=== PATIENT | female | born 1955 | race Caucasian/White ===

== ENCOUNTER → 2016-02-14 | Outpatient (CLI) | payer OTHER ==
[~2016-02-14] MED LIST: ACET-1311 PO; ALBU0.08 INH; ALBU1AER9 INH; ASPI-461 PO; ASPI81TA28 PO; ATOR10TA82 PO; ATR10 PO; BENZ100C84 PO; CETI10TA84 PO; CHOL2000 PO; CHOL20005 PO; CRDCD/180 PO; CYAN100020 PO; CYAN10004 PO; DILT180C PO; DLTCD/240 PO; ENAL1TAB29 PO; ENAL2.5T PO; FERR1TAB62 PO; FRS/40 PO; HMLI SC; HOME1TAB18 PO; HYDR-389 PO; HYDR0.75 PO; IBUP-1050 PO; INSDGI SC; INSU100I SC; INSU100I23 SC; LEVA45AE INH; LIDO16CR TOP; LIRA18IN SQ; LPT10 PO; METF-384 PO; MOME200A INH; MONT1TAB3 PO; NAPR1TAB48 PO; NYSTCRE32 TOP; ONDA4TAB10 SL; ONDA4TAB46 PO; OSEL75CA12 PO; OXYC1TAB3 PO; POTA1080 PO; PRED20TA PO; RANI300T PO; RHNAQIN NAE; SNG10 PO; TRAM-10 PO; ZNTT/150 PO
--- NOTE | 2016-02-14 11:05 | DIAGNOSTIC IMAGING REPORT ---
RIGHT AXILLARY ULTRASOUND CLINICAL HISTORY: Axillary lymphadenopathy COMPARISON STUDY: CT scan dated 01/09/2016 FINDINGS: There are scattered small axillary lymph nodes measuring up to 1 cm in short axis. These demonstrate normal fatty olimpia. There is no evidence of pathologic cortical thickening. IMPRESSION: No evidence of pathologic right axillary lymphadenopathy by size or morphologic criteria Electronically signed by: Abdulkadir Guerrero M.D. 02/14/2016 11:03 AM
== END | disposition home or self-care (01) ==
LOC: C.ULTR 09:29
PROVIDERS: ATTEND Internal Medicine
DX: R59.0 Localized enlarged lymph nodes (principal)

== ENCOUNTER → 2016-02-28 | Outpatient (CLI) | payer OTHER ==
[~2016-02-28] MED LIST changes: -ATOR10TA82 PO; +ATOR10TA88 PO; -FERR1TAB62 PO; +FERR325T PO; -INSU100I23 SC; -LPT10 PO; -NAPR1TAB48 PO; +NAPR250T2 PO
--- NOTE | 2016-02-28 14:39 | DIAGNOSTIC IMAGING REPORT ---
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 FINDINGS: Digit waveforms for each digit within the feet were obtained and are located within the PACS system. The right ankle-brachial index measured 0.84 and the left measured 0.72 when utilizing digital pressures. IMPRESSION: 1. Right ankle brachial index of 0.84 and left ankle brachial index of 0.72. 2. Digit waveforms for each toe were obtained and are located within the PACS system. Electronically signed by: Ángel Garcia M.D. 02/28/2016 2:37 PM Dictated Date/Time: 02/28/2016 2:34 PM
== END | disposition home or self-care (01) ==
LOC: C.ULTR 13:14
PROVIDERS: ATTEND Podiatrist Foot & Ankle Surgery
DX: E11.51 Type 2 diabetes mellitus with diabetic peripheral angiopathy without gangrene (principal)

== ENCOUNTER 2016-02-29 13:25 | Inpatient (IN) | payer OTHER ==
[~2016-02-29] VITALS: Ht 160 cm; Wt 138.5 kg
[~2016-02-29 13:25] MED LIST changes: -ACET-1311 PO; -ASPI-461 PO; -ASPI81TA28 PO; -ATOR10TA88 PO; -ATR10 PO; -BENZ100C84 PO; -CETI10TA84 PO; -CHOL2000 PO; -CHOL20005 PO; -CRDCD/180 PO; -CYAN100020 PO; -CYAN10004 PO; -DILT180C PO; -DLTCD/240 PO; -ENAL1TAB29 PO; -ENAL2.5T PO; -FERR325T PO; -FRS/40 PO; -HMLI SC; -HOME1TAB18 PO; -HYDR-389 PO; -HYDR0.75 PO; -INSU100I SC; -LEVA45AE INH; -LIDO16CR TOP; -LIRA18IN SQ; -METF-384 PO; -MOME200A INH; -MONT1TAB3 PO; -NYSTCRE32 TOP; -ONDA4TAB46 PO; -OSEL75CA12 PO; -OXYC1TAB3 PO; -POTA1080 PO; -PRED20TA PO; -RANI300T PO; -RHNAQIN NAE; -SNG10 PO; -TRAM-10 PO; -ZNTT/150 PO
[2016-02-29] MEDS ORDERED: OPTIRAY 320 IV PRN (14:00)
[2016-02-29 15:34] LABS: BASO % 0.4 %; BASO ABS # 0.04 K/uL (0-0.2); COMPLETE YES; HEMATOCRIT 35.3 % (37-47); IG% 0.3 %; LYMPH % 28.4 %; MEAN CELL VOLUME 73.8 fL (80-100); MEAN CORPUSCULAR HEMOGLOBIN 23.4 pg (25-34); MEAN CORPUSCULAR HGB CONC 31.7 g/dl (32-36); MEAN PLATELET VOLUME 9.7 fL (7.4-10.4); MONO % 7.9 %; PLATELET COUNT 257 K/uL (130-400); RED BLOOD COUNT 4.78 M/uL (4.2-5.4); WHITE BLOOD COUNT 10.58 K/uL (4.8-10.8)
[2016-02-29 16:00] LABS: CALCIUM 9.1 mg/dl (8.5-10.1); CREATININE 0.64 mg/dl (0.60-1.20); MAGNESIUM 1.9 mg/dl (1.8-2.4); POTASSIUM 3.7 mmol/L (3.5-5.1)
[2016-02-29 16:11] LABS: ALB/GLOB RATIO 0.8 (0.9-2); THYROID STIMULATING HORMONE 0.941 uIu/ml (0.300-4.500)
--- NOTE | 2016-02-29 16:45 | DIAGNOSTIC IMAGING REPORT ---
CT ANGIOGRAPHY OF THE CHEST, PULMONARY EMBOLUS PROTOCOL CLINICAL HISTORY: Tachycardia, shortness of breath and palpitations. COMPARISON STUDY: Chest CT January 09, 2016 and chest radiograph February 06, 2016. TECHNIQUE: Following IV administration of 96 mL of Optiray-320, helical axial images of the chest were obtained utilizing the pulmonary embolus protocol. Maximal intensity projections and sagittal and coronal reformats were viewed on an independent 3D workstation. IV contrast was administered without complication. CT DOSE: 871.55 mGy.cm FINDINGS: No pulmonary emboli are identified. The heart is mildly enlarged. There is no pericardial effusion. There is no evidence for thoracic aortic dissection. Moderate coronary artery calcification is present. The previously described right axillary lymph node has slightly decreased in size. This is likely benign. Marked elevation of the right hemidiaphragm is unchanged. There is no consolidation to suggest pneumonia. Right lower lobe opacity suggest atelectasis. There is no pneumothorax or pleural effusion. The central airways are patent. A right total arthroplasty is incidentally noted. The gallbladder surgically absent. Mild splenomegaly is unchanged. IMPRESSION: 1. No pulmonary emboli identified. 2. No acute intrathoracic findings. 3. Stable marked elevation of the right hemidiaphragm. Electronically signed by: Ángel Garcia M.D. 02/29/2016 4:43 PM Dictated Date/Time: 02/29/2016 4:35 PM
[2016-02-29 17:38] VITALS: O2SAT 94; Ht 160 cm; Wt 138.5 kg
[2016-02-29] MEDS ORDERED: POTASSIUM CITRATE 10 MEQ TAB PO ONE (18:11)
[2016-02-29] MEDS ORDERED: LIDOCAINE 4% CREAM 15 GM TUBE EXT PRN (18:15)
[2016-02-29] MEDS ORDERED: LORAZEPAM 2 MG/ML 1 ML VIAL IV PRN ×2 (18:15)
[2016-02-29] MEDS ORDERED: GLUCOSE 10 TABS/TUBE PO PRN (18:15)
[2016-02-29] MEDS ORDERED: PROMETHAZINE HCL INJ 12.5 MG in SODIUM CHLORIDE 0.9% 50ML 50 ML IV PRN (18:15)
[2016-02-29] MEDS ORDERED: NITROGLYCERIN 0.4 MG SL PER TAB CHARGE SL PRN (18:15)
[2016-02-29] MEDS ORDERED: MAGNESIUM HYDROXIDE SUSP 30 ML UDC PO PRN (18:15)
[2016-02-29] MEDS ORDERED: ZOLPIDEM TARTRATE 5 MG TAB PO PRN ×2 (18:15)
[2016-02-29] MEDS ORDERED: MoRPHine SULFATE 4 MG/ML 1 ML CARP\\VIAL IV PRN (18:15)
[2016-02-29] MEDS ORDERED: GLUCOSE 40% GEL 15 GM TUBE PO PRN (18:15)
[2016-02-29] MEDS ORDERED: BISACODYL 10 MG SUPP PR PRN (18:15)
[2016-02-29] MEDS ORDERED: ACETAMINOPHEN 325 MG TAB PO PRN ×2 (18:15)
[2016-02-29] MEDS ORDERED: MoRPHine SULFATE 2 MG/ML CARP IV PRN (18:15)
[2016-02-29] MEDS ORDERED: DiphenhydrAMINE HCL 50 MG/ML VIAL IV PRN (18:15)
[2016-02-29] MEDS ORDERED: DEXTROSE 50% 50 ML SYR IV PRN (18:15)
[2016-02-29] MEDS ORDERED: ALUMINUM/MAGNESIUM/SIMETH (MAALOX MAX) 30 ML UDC PO PRN (18:15)
[2016-02-29] MEDS ORDERED: NYSTATIN/TRIAMCINOLONE CR 15 GM TUBE EXT PRN (18:15)
[2016-02-29] MEDS ORDERED: TRAMADOL HCL 50 MG TAB PO PRN (18:15)
[2016-02-29] MEDS ORDERED: ONDANSETRON INJ 2 MG/ML 2 ML VIAL IV PRN (18:15)
[2016-02-29] MEDS ORDERED: GLUCAGON FOR INJ 1 MG VIAL SQ PRN (18:15)
[2016-02-29] MEDS ORDERED: LORAZEPAM INJ 0.5 MG in SYRINGE 0.75 ML IV PRN (18:45)
[2016-02-29 19:32] LABS: CKMB/CK RATIO 1.2 (0-3.0)
[2016-02-29] MEDS ORDERED: MAGNESIUM SULFATE 1GM / D5W 1 GM BAG ONE (19:45)
[2016-02-29 19:54] LABS: URINE APPEARANCE CLEAR (CLEAR); URINE BILIRUBIN NEG (NEG); URINE COLOR YELLOW; URINE NITRITE NEG (NEG); URINE PH 7.5 (4.5-7.5); UROBILINOGEN NEG (NEG); ZZUR CULT IF INDIC CLEAN CATCH NO
[2016-02-29 19:55] LABS: MANUAL MICROSCOPIC REQUIRED? NO; REVIEW REQ? NO
[2016-02-29] MEDS ORDERED: MAGNESIUM SULFATE 1GM / D5W 1 GM in PREMIXED IN D5W 100 ML IV ONE (20:30)
--- NOTE | 2016-02-29 20:33 | History and Physical ---
History & Physical Date & Time of Service: Feb 29, 2016 at 20:07 Chief Complaint: Heart Palpitations Primary Care Physician: RV. Patterson MD History of Present Illness Source: patient The patient is a 52-year-old female who presents to the emergency department with a recurrence of palpitations. She has had palpitations in the past, and they've been seen while emergency department before, however, they have not been able to be recorded. Today, she did have a rapid heart episode recorded, this was shown to billing supervisor Dr. Shaw, who felt that it was an SVT, and that the patient should be admitted to be seen by Dr. Broussard. The patient reports that these symptoms can happen at any time, and may occur with or without activity, but in particular can be associated with time or when she is sleeping at nighttime. She does also notice the palpitations are more likely to occur after using her nebulizer treatment at home. She has not had any symptoms of presyncope or syncope when these occur. Past Medical/Surgical History Medical Problems: (1) Asthma Status: Chronic (2) Cholecystectomy Status: Resolved (3) Chronic obstructive lung disease Status: Chronic (4) Diabetes mellitus Status: Chronic (5) Hysterectomy Status: Resolved (6) Sleep apnea Status: Chronic Family History Diabetes mellitus Hypertension Kidney stones Social History Smoking Status: Former Smoker Smokeless Tobacco Use: No Alcohol Use: none Drug Use: none, marijuana Marital Status: Housing status: lives with family Occupational Status: disabled Immunizations History of Influenza Vaccine: Yes Influenza Vaccine Date: Nov 26, 2014 History of Tetanus Vaccine?: No History of Pneumococcal: Yes Pneumococcal Date: Mar 29, 2013 History of Hepatitis B Vaccine: No Multi-Drug Resistant Organisms History of MDRO: No Allergies Coded Allergies: Tetanus Toxoid (Verified Allergy, Unknown, ARM SWELLING ITCHY, 02/06/16) Home Medications Scheduled Aspirin (Aspirin Ec), 81 MG PO DAILY Atorvastatin (Lipitor), 10 MG PO QPM Cetirizine (Zyrtec), 10 MG PO QAM Cholecalciferol (Vitamin D3), 2,000 UNITS PO QAM Cyanocobalamin (Vitamin B12), 1,000 MCG PO QPM Enalapril Maleate (Vasotec), 2.5 MG PO QPM Furosemide (Lasix), 40 MG PO BID Hydroxyzine Hcl (Atarax), 10 MG PO BID Insulin Glargine (Lantus), 90 UNITS SC QAM Insulin Lispro (Humalog), UNITS SC WM Lidocaine (Aspercreme W/Lidocaine), 1 APPLN TOP PRN UD Liraglutide (Victoza), 1.8 MCG SQ QPM Metformin Hcl (Glucophage), 1,000 MG PO BIDM Mometasone Furoate-Formoterol (Dulera 200/5 Mcg), 2 PUFFS INH BID Montelukast Sodium (Singulair), 10 MG PO HS Potassium Citrate (Alkalinizer (Potassium Citrate ER), 10 MEQ PO BID Ranitidine (Zantac), 150 MG PO Q12 Scheduled PRN Acetaminophen (Tylenol), 4 TABS PO TID PRN for Headache or Pain Albuterol (Proair Hfa), 1-2 PUFFS INH Q4-6HRS PRN for SOB/Wheezing Albuterol Soln (Proventil 0.083% 2.5MG/3ML), 2.5 MG INH Q6H PRN for Wheezing Nystatin-Triamcinolone (Nystatin/Triamcinolone), 1 APPLN TOP BID PRN for Tramadol (Ultram), 50 MG PO QPM PRN for Pain Review of Systems The patient denies shortness of breath, cough, lower extremity swelling, vision change, hearing change, sore throat, fevers, chills, sweats, weight change, fatigue, nausea, vomiting, abdominal pain, pelvic pain, blood in urine or stool , dysuria, urinary frequency or urgency, lightheadedness, dizziness, headache, memory loss, rash, abnormal bruising or bleeding, imbalance, focal or generalized weakness, numbness or tingling in arms or legs, arthralgias or myalgias, back or neck pain, night sweats, or allergy symptoms. The review of systems is otherwise negative other than for that already noted above, and at least 10 systems have been reviewed. Physical Exam Vital Signs Date Time Temp Pulse Resp B/P Pulse Ox O2 Delivery O2 Flow Rate FiO2 02/29/16 19:40 99 21 114/66 94 Room Air 02/29/16 19:37 99 25 94 02/29/16 19:07 102 23 93 02/29/16 18:58 112/92 02/29/16 18:37 106 26 91 02/29/16 18:32 104 29 93 02/29/16 18:29 110/63 02/29/16 18:02 111 21 92 02/29/16 17:59 120/72 02/29/16 17:38 94 Room Air 02/29/16 17:32 111 23 95 02/29/16 17:29 103/80 02/29/16 17:02 134 20 94 02/29/16 16:57 143 121/65 02/29/16 16:33 115 19 02/29/16 16:03 165 19 94 02/29/16 15:58 122/74 02/29/16 15:50 98 22 94 02/29/16 15:43 123/81 02/29/16 15:28 110/64 02/29/16 15:20 88 21 95 02/29/16 15:15 107 18 94 02/29/16 15:14 91/67 02/29/16 15:10 106 27 96 02/29/16 15:05 90 26 02/29/16 15:00 88 15 02/29/16 14:59 125/68 02/29/16 14:55 90 23 95 02/29/16 14:51 125/93 02/29/16 14:50 146 21 94 02/29/16 14:45 103 17 02/29/16 14:42 89 02/29/16 14:40 85 25 92 02/29/16 13:37 98 Room Air 02/29/16 13:34 37.1 86 18 135/62 98 Room Air The patient is awake, alert and oriented 3, normocephalic and atraumatic, obese , lying in bed and in no acute distress. HEENT--PERRL, EOMI, mucous membranes moist, and oropharynx normal. Neck--supple, no JVD or bruits, thyroid normal, trachea midline, no adenopathy. Heart--normal S1 and S2, no extra beats, no murmurs, rubs or gallops. Lungs--clear bilaterally with good air movement, no respiratory distress, no accessory muscle use. Abdomen--normal bowel sounds and soft, nontender and nondistended, no hernias or masses, no organomegaly. Extremities--no cyanosis, clubbing or edema. There are good distal pulses b/l. Dermatologic--normal skin turgor, normal color, warm and dry, no abnormal lymph nodes, no rash. Neurologic--cranial nerves II through XII grossly intact, motor and sensory examination normal. Rheumatologic--normal range of motion, nontender, muscles and joints. Psychiatric--normal affect. Diagnostics Laboratory Results Results Past 24 Hours Test 02/29/16 14:45 02/29/16 15:23 02/29/16 15:25 Range/Units Urine Color YELLOW Urine Appearance CLEAR CLEAR Urine pH 7.5 4.5-7.5 Urine Specific [place] 1.000 1.000-1.030 Urine Protein NEG NEG Urine Glucose (UA) NEG NEG Urine Ketones NEG NEG Urine Occult Blood NEG NEG Urine Nitrite NEG NEG Urine Bilirubin NEG NEG Urine Urobilinogen NEG NEG Urine Leukocyte Esterase NEG NEG White Blood Count 10.58 4.8-10.8 K/uL Red Blood Count 4.78 4.2-5.4 M/uL Hemoglobin 11.2 12.0-16.0 g/dL Hematocrit 35.3 37-47 % Mean Corpuscular Volume 73.8 80-100 fL Mean Corpuscular Hemoglobin 23.4 25-34 pg Mean Corpuscular Hemoglobin Concent 31.7 32-36 g/dl Platelet Count 257 130-400 K/uL Mean Platelet Volume 9.7 7.4-10.4 fL Neutrophils (%) (Auto) 62.0 % Lymphocytes (%) (Auto) 28.4 % Monocytes (%) (Auto) 7.9 % Eosinophils (%) (Auto) 1.0 % Basophils (%) (Auto) 0.4 % Neutrophils # (Auto) 6.56 1.4-6.5 K/uL Lymphocytes # (Auto) 3.00 1.2-3.4 K/uL Monocytes # (Auto) 0.84 0.11-0.59 K/uL Eosinophils # (Auto) 0.11 0-0.5 K/uL Basophils # (Auto) 0.04 0-0.2 K/uL RDW Standard Deviation 46.5 36.4-46.3 fL RDW Coefficient of Variation 17.2 11.5-14.5 % Immature Granulocyte % (Auto) 0.3 % Immature Granulocyte # (Auto) 0.03 0.00-0.02 K/uL Sodium Level 138 136-145 mmol/L Potassium Level 3.7 3.5-5.1 mmol/L Chloride Level 101 98-107 mmol/L Carbon Dioxide Level 27 21-32 mmol/L Anion Gap 10.0 3-11 mmol/L Blood Urea Nitrogen 8 7-18 mg/dl Creatinine 0.64 0.60-1.20 mg/dl Est Creatinine Clear Calc Drug Dose 132.2 ml/min Estimated GFR () 114.0 Estimated GFR (Non- 98.4 BUN/Creatinine Ratio 12.0 10-20 Random Glucose 78 70-99 mg/dl Calcium Level 9.1 8.5-10.1 mg/dl Magnesium Level 1.9 1.8-2.4 mg/dl Total Bilirubin 0.2 0.2-1 mg/dl Aspartate Amino Transf (AST/SGOT) 13 15-37 U/L Alanine Aminotransferase (ALT/SGPT) 19 12-78 U/L Alkaline Phosphatase 70 45-117 U/L Total Creatine Kinase 75 26-192 U/L Creatine Kinase MB 0.9 0.5-3.6 ng/ml Creatine Kinase MB Ratio 1.2 0-3.0 Troponin I < 0.015 0-0.045 ng/ml Total Protein 7.3 6.4-8.2 gm/dl Albumin 3.2 3.4-5.0 gm/dl Globulin 4.1 2.5-4.0 gm/dl Albumin/Globulin Ratio 0.8 0.9-2 Thyroid Stimulating Hormone (TSH) 0.941 0.300-4.500 uIu/ml Bedside Troponin I 0.000 0-0.045 ng/ml Diagnostic Radiology Patient Name: JOSE ANGEL POSADA Unit Number: [id number] Dictated: 02/29/[id number] Transcribed: 02/29/161634 GIN Printed Date/Time: [~ rep prt dt]/[~ rep prt tm] [~ rep ct labl] - [~ rep ct ivnm] [facility] [place] [place] [address] Dictated: 02/29/161634 Transcribed: 02/29/161634 GIN Printed Date/Time: [~ rep prt dt]/[~ rep prt tm] [~ rep ct labl] - [~ rep ct ivnm] CT ANGIOGRAPHY OF THE CHEST, PULMONARY EMBOLUS PROTOCOL CLINICAL HISTORY: Tachycardia, shortness of breath and palpitations. COMPARISON STUDY: Chest CT January 09, 2016 and chest radiograph February 06, 2016. TECHNIQUE: Following IV administration of 96 mL of Optiray-320, helical axial images of the chest were obtained utilizing the pulmonary embolus protocol. Maximal intensity projections and sagittal and coronal reformats were viewed on an independent 3D workstation. IV contrast was administered without complication. CT DOSE: 871.55 mGy.cm FINDINGS: No pulmonary emboli are identified. The heart is mildly enlarged. There is no pericardial effusion. There is no evidence for thoracic aortic dissection. Moderate coronary artery calcification is present. The previously described right axillary lymph node has slightly decreased in size. This is likely benign. Marked elevation of the right hemidiaphragm is unchanged. There is no consolidation to suggest pneumonia. Right lower lobe opacity suggest atelectasis. There is no pneumothorax or pleural effusion. The central airways are patent. A right total arthroplasty is incidentally noted. The gallbladder surgically absent. Mild splenomegaly is unchanged. IMPRESSION: 1. No pulmonary emboli identified. 2. No acute intrathoracic findings. 3. Stable marked elevation of the right hemidiaphragm. Electronically signed by: Ángel Garcia M.D. 02/29/2016 4:43 PM Dictated Date/Time: 02/29/2016 4:35 PM The status of this report is Signed. Draft = Not yet reviewed or approved by Radiologist. Signed = Reviewed and approved by Radiologist. <AttendingPhy></AttendingPhy> <FamilyPhy>RV. Patterson MD</ FamilyPhy> <PrimaryPhy>RV. Patterson MD</PrimaryPhy> <UnitNumber> [id number]</UnitNumber> <VisitNumber>[id number]</VisitNumber> <PatientName> JOSE ANGEL POSADA</PatientName> <DateOfBirth>1955</DateOfBirth> <Location>[facility]</ Location> <ServiceDate>02/29/16</ServiceDate> <MNE>ESINDI</MNE> <OrderingPhy> Penny Gonzalez PA-C</OrderingPhy> <OrderingPhyMNE>f rep ord dr clayton</OrderingPhyMNE > <DictatingPhyMNE>f rep dict dr clayton</DictatingPhyMNE> <CCListMNE>f rep cuca clayton</ CCListMNE> <AdmittingPhyMNE>f pt admit dr clayton</AdmittingPhyMNE> <AttendingPhyMNE >f pt attend dr clayton</AttendingPhyMNE> <ConsultingPhyMNE>f pt consult dr clayton</ConsultingPhyMNE> <FamilyPhyMNE>f pt fam dr clayton</FamilyPhyMNE> <OtherPhyMNE>f pt other dr clayton</OtherPhyMNE> < PrimaryPhyMNE>f pt prim care dr clayton</PrimaryPhyMNE> <ReferringPhyMNE>f pt referring dr clayton</ReferringPhyMNE> EKG EKG #1--normal sinus rhythm at 92 bpm, with right bundle branch block, with PACs , and no acute ST-T changes. EKG #2--sinus tachycardia at 157 bpm, right bundle branch block, with no acute ST-T changes. Impression Assessment and Plan Sinus tachycardia, self-limited, but by history recurrent--the patient will be admitted to the telemetry unit, will for serial cardiac enzymes, cardiac rhythm monitoring, and a 2-D echocardiogram with Dopplers. Her potassium is 3.7, and magnesium is 1.9. We'll increase her oral supplementation of potassium, and give 1 g IV magnesium IV, to optimize potassium and magnesium. We'll consult Dr. Broussard to assess the patient. Continue enalapril 2.5 mg by mouth daily, furosemide 40 mg by mouth twice a day and will increase potassium citrate from 10 mEq by mouth twice a day 220 mEq by mouth twice a day, with 40 mEq by mouth tonight. Diabetes mellitus--continue Lantus insulin 90 units subcutaneous every morning. Hold Victoza since its nonformulary, hold metformin 1000 mg by mouth twice a day, and place patient on Accu-Cheks before meals and at bedtime with NovoLog coverage. COPD--continue pro-air HFA 2 puffs every 4 hours when necessary. Will Hold albuterol sulfate nebulizer since she reports it . Is more likely to cause tachycardia, and instead place on Xopenex with Atrovent nebs to use every 2 hours when necessary. Continue Singulair 10 mg by mouth at bedtime. Change Dulera to Symbicort 160/4.52 puffs twice a day for formulary interchange. Hypercholesterolemia--continue atorvastatin 10 mg by mouth every afternoon. GERD--continue ranitidine 50 mg by mouth every 12 hours. B12 deficiency--continue vitamin B12 supplement 1000 g by mouth every afternoon. Allergy--continue cetirizine 10 mg by mouth every morning. Pain management increased tramadol 50 mg every afternoon when necessary 2 every 4 hours when necessary.. Level of Care Telemetry Advanced Directives Existing Advance Directive: No Existing Living Will: No Existing Power of Optical Advisor: No Resuscitation Status FULL RESUSCITATION VTE Prophylaxis VTE Risk Assessment Done? Y/N: Yes Risk Level: Moderate Given or contraindicated: SCD's
[2016-02-29 20:55] VITALS: BP 132/78; PULSE 96; TEMP 36.7; O2SAT 91
[2016-02-29] MEDS: BUDESONIDE/FORMOTEROL FUMARATE 160/4.5 60 PUFFS/INHALER INH SCH (20:58)
[2016-02-29] MEDS: DOCUSATE SODIUM 100 MG CAP PO SCH (20:58)
[2016-02-29] MEDS: FUROSEMIDE 40 MG TAB PO SCH (20:59)
[2016-02-29] MEDS: RANITIDINE HCL 150 MG TAB PO SCH (20:59)
[2016-02-29] MEDS ORDERED: MONTELUKAST SOD 10 MG TAB PO SCH (21:00)
[2016-02-29] MEDS ORDERED: ENALAPRIL MALEATE 5 MG TAB PO SCH (21:00)
[2016-02-29] MEDS: hydrOXYzine HCL 10 MG TAB PO SCH (21:00)
[2016-02-29] MEDS ORDERED: ATORVASTATIN 10 MG TAB PO SCH (21:00)
[2016-02-29] MEDS ORDERED: POTASSIUM CITRATE 10 MEQ TAB PO SCH (21:00)
[2016-02-29] MEDS: INSULIN ASPART 100 UNITS/ML 3 ML PEN SC SCH (21:07)
[2016-02-29] MEDS: POTASSIUM CITRATE 10 MEQ TAB PO SCH (21:08)
[2016-02-29 21:22] VITALS: O2SAT 91
[2016-02-29 21:29] VITALS: O2SAT 91
[2016-02-29 23:29] VITALS: BP 127/84; PULSE 94; TEMP 36.6; O2SAT 90
--- NOTE | 2016-02-29 23:42 | EMERGENCY ROOM VISIT NOTE ---
History First contact with patient: 13:43 Chief Complaint: PALPITATIONS Stated Complaint: SVT Nursing Triage Summary: Heart palpitations. Dr. Mcnally was dob[employer] lo[employer] weaver and has not been able to establish an appt with a new provider. "Sometimes the palpitations take my breath away." Has history of heart palpiations- HR in the 180s last year. History of Present Illness The patient is a 60 year old female who presents to the Emergency Room with complaints of palpitations. The patient reports that she has had palpitations over the past one week. She states that she has had a history of tachycardia and was admitted once a few years ago for this. She states she is unsure of the cause of the tachycardia. She saw Dr. Mcnally, but states that she has not seen any dob[employer] loom weaver at this time. She called them this week, but there was no available appointment this month. She states that the palpitations are worse at night and when she develops then she has tightness in her chest and shortness of breath. She states they are worse than they have been in the past. She does have a history of pulmonary embolism. She denies any, vomiting , abdominal pain, headaches or urinary symptoms. Review of Systems A complete 10-point Review of Systems was discussed with the patient, with pertinent positives and negatives listed in the History of Present Illness. All remaining Review of Systems questions can be considered negative unless otherwise specified. Past Medical/Surgical History Medical Problems: (1) Asthma (2) Calculus Of Kidney (3) Cholecystectomy (4) Chronic obstructive lung disease (5) Diabetes mellitus (6) Hysterectomy (7) Left arm numbness (8) Rotator cuff arthropathy (9) Shortness of breath (10) Sleep apnea (11) SVT (supraventricular tachycardia) Family History Diabetes mellitus Hypertension Kidney stones Social History Smoking Status: Former Smoker Smokeless Tobacco Use: No Alcohol Use: none Drug Use: none, marijuana Marital Status: Housing Status: lives with family Occupation Status: disabled Current/Historical Medications Scheduled Aspirin (Aspirin Ec), 81 MG PO DAILY Atorvastatin (Lipitor), 10 MG PO QPM Cetirizine (Zyrtec), 10 MG PO QAM Cholecalciferol (Vitamin D3), 2,000 UNITS PO QAM Cyanocobalamin (Vitamin B12), 1,000 MCG PO QPM Enalapril Maleate (Vasotec), 2.5 MG PO QPM Furosemide (Lasix), 40 MG PO BID Hydroxyzine Hcl (Atarax), 10 MG PO BID Insulin Glargine (Lantus), 90 UNITS SC QAM Insulin Lispro (Humalog), UNITS SC WM Lidocaine (Aspercreme W/Lidocaine), 1 APPLN TOP PRN UD Liraglutide (Victoza), 1.8 MCG SQ QPM Metformin Hcl (Glucophage), 1,000 MG PO BIDM Mometasone Furoate-Formoterol (Dulera 200/5 Mcg), 2 PUFFS INH BID Montelukast Sodium (Singulair), 10 MG PO HS Potassium Citrate (Alkalinizer (Potassium Citrate ER), 10 MEQ PO BID Ranitidine (Zantac), 150 MG PO Q12 Scheduled PRN Acetaminophen (Tylenol), 4 TABS PO TID PRN for Headache or Pain Albuterol (Proair Hfa), 1-2 PUFFS INH Q4-6HRS PRN for SOB/Wheezing Albuterol Soln (Proventil 0.083% 2.5MG/3ML), 2.5 MG INH Q6H PRN for Wheezing Nystatin-Triamcinolone (Nystatin/Triamcinolone), 1 APPLN TOP BID PRN for Tramadol (Ultram), 50 MG PO QPM PRN for Pain Allergies Coded Allergies: Tetanus Toxoid (Verified Allergy, Unknown, ARM SWELLING ITCHY, 02/06/16) Physical Exam Vital Signs Date Time Temp Pulse Resp B/P Pulse Ox O2 Delivery O2 Flow Rate FiO2 02/29/16 18:02 111 21 92 02/29/16 17:59 120/72 02/29/16 17:38 94 Room Air 02/29/16 17:32 111 23 95 02/29/16 17:29 103/80 02/29/16 17:02 134 20 94 02/29/16 16:57 143 121/65 02/29/16 16:33 115 19 02/29/16 16:03 165 19 94 02/29/16 15:58 122/74 02/29/16 15:50 98 22 94 02/29/16 15:43 123/81 02/29/16 15:28 110/64 02/29/16 15:20 88 21 95 02/29/16 15:15 107 18 94 02/29/16 15:14 91/67 02/29/16 15:10 106 27 96 02/29/16 15:05 90 26 02/29/16 15:00 88 15 02/29/16 14:59 125/68 02/29/16 14:55 90 23 95 02/29/16 14:51 125/93 02/29/16 14:50 146 21 94 02/29/16 14:45 103 17 02/29/16 14:42 89 02/29/16 14:40 85 25 92 02/29/16 13:37 98 Room Air 02/29/16 13:34 37.1 86 18 135/62 98 Room Air Pain Rating (0-10): 0 Physical Exam VITALS: Vitals are noted on the nurse's note and reviewed by myself. Vital signs stable. GENERAL: This is a 60-year-old obese female, in no acute distress, nondiaphoretic, well-developed well-nourished. SKIN: Capillary reflex less than 2 seconds. HEENT: Normocephalic. PERRLA. EOMI. Nares patent. Mucous membranes moist. Neck is supple without nuchal rigidity. HEART: Regular rate and rhythm without murmurs gallops or rubs. LUNGS: Clear to auscultation bilaterally without wheezes, rales or rhonchi. No retractions or accessory muscle use. ABDOMEN: Positive bowel sounds x 4. Soft, nontender. NEURO: Patient was alert and oriented to person place and time. Medical Decision & Procedures ER Provider Diagnostic Interpretation: CT ANGIOGRAPHY OF THE CHEST, PULMONARY EMBOLUS PROTOCOL IMPRESSION: 1. No pulmonary emboli identified. 2. No acute intrathoracic findings. 3. Stable marked elevation of the right hemidiaphragm. Laboratory Results 02/29/16 15:23 Red Blood Count 4.78, Mean Corpuscular Volume 73.8, Mean Corpuscular Hemoglobin 23.4, Mean Corpuscular Hemoglobin Concent 31.7, Mean Platelet Volume 9.7, Neutrophils (%) (Auto) 62.0, Lymphocytes (%) (Auto) 28.4, Monocytes (%) (Auto) 7.9, Eosinophils (%) (Auto) 1.0, Basophils (%) (Auto) 0.4, Neutrophils # (Auto) 6.56, Lymphocytes # (Auto) 3.00, Monocytes # (Auto) 0.84, Eosinophils # (Auto) 0.11, Basophils # (Auto) 0.04 02/29/16 15:23 Test 02/29/16 14:45 02/29/16 15:23 02/29/16 15:25 Urine Color YELLOW Urine Appearance CLEAR (CLEAR) Urine pH 7.5 (4.5-7.5) Urine Specific [place] 1.000 (1.000-1.030) Urine Protein NEG (NEG) Urine Glucose (UA) NEG (NEG) Urine Ketones NEG (NEG) Urine Occult Blood NEG (NEG) Urine Nitrite NEG (NEG) Urine Bilirubin NEG (NEG) Urine Urobilinogen NEG (NEG) Urine Leukocyte Esterase NEG (NEG) White Blood Count 10.58 K/uL (4.8-10.8) Red Blood Count 4.78 M/uL (4.2-5.4) Hemoglobin 11.2 g/dL (12.0-16.0) Hematocrit 35.3 % (37-47) Mean Corpuscular Volume 73.8 fL (80-100) Mean Corpuscular Hemoglobin 23.4 pg (25-34) Mean Corpuscular Hemoglobin Concent 31.7 g/dl (32-36) Platelet Count 257 K/uL (130-400) Mean Platelet Volume 9.7 fL (7.4-10.4) Neutrophils (%) (Auto) 62.0 % Lymphocytes (%) (Auto) 28.4 % Monocytes (%) (Auto) 7.9 % Eosinophils (%) (Auto) 1.0 % Basophils (%) (Auto) 0.4 % Neutrophils # (Auto) 6.56 K/uL (1.4-6.5) Lymphocytes # (Auto) 3.00 K/uL (1.2-3.4) Monocytes # (Auto) 0.84 K/uL (0.11-0.59) Eosinophils # (Auto) 0.11 K/uL (0-0.5) Basophils # (Auto) 0.04 K/uL (0-0.2) RDW Standard Deviation 46.5 fL (36.4-46.3) RDW Coefficient of Variation 17.2 % (11.5-14.5) Immature Granulocyte % (Auto) 0.3 % Immature Granulocyte # (Auto) 0.03 K/uL (0.00-0.02) Anion Gap 10.0 mmol/L (3-11) Est Creatinine Clear Calc Drug Dose 132.2 ml/min Estimated GFR () 114.0 Estimated GFR (Non- 98.4 BUN/Creatinine Ratio 12.0 (10-20) Calcium Level 9.1 mg/dl (8.5-10.1) Magnesium Level 1.9 mg/dl (1.8-2.4) Total Bilirubin 0.2 mg/dl (0.2-1) Aspartate Amino Transf (AST/SGOT) 13 U/L (15-37) Alanine Aminotransferase (ALT/SGPT) 19 U/L (12-78) Alkaline Phosphatase 70 U/L (45-117) Total Creatine Kinase 75 U/L (26-192) Creatine Kinase MB 0.9 ng/ml (0.5-3.6) Creatine Kinase MB Ratio 1.2 (0-3.0) Troponin I < 0.015 ng/ml (0-0.045) Total Protein 7.3 gm/dl (6.4-8.2) Albumin 3.2 gm/dl (3.4-5.0) Globulin 4.1 gm/dl (2.5-4.0) Albumin/Globulin Ratio 0.8 (0.9-2) Thyroid Stimulating Hormone (TSH) 0.941 uIu/ml (0.300-4.500) Bedside Troponin I 0.000 ng/ml (0-0.045) Medications Administered Medications (Trade) Dose Ordered Sig/Neida Route Start Time Stop Time Status Last Admin Dose Admin Potassium Citrate (Urocit-K Tab) 40 meq 1811 ONCE PO 02/29/16 18:11 02/29/16 20:17 DC 02/29/16 20:58 40 MEQ ECG Rate (beats per minute): 92 Rhythm: normal sinus Findings: no acute ischemic change, no ectopy Change: no significant change Medical Decision Differential diagnosis includes supraventricular tachycardia, atrial fibrillation, acute coronary syndrome, pulmonary embolism, pneumothorax, pericarditis, myocarditis, endocarditis, anxiety, musculoskeletal pain, GERD, costochondritis, among others. The patient was evaluated as above. Labs were drawn and IV access was obtained. Imaging studies were performed and read by radiology as above. The patient was reassessed multiple times during their stay in the emergency department and remained in stable condition. The patient is a 60-year-old female who presents today complaining of palpitations. Labs revealed no leukocytosis or anemia. The patient was slightly hypokalemic but otherwise there were no significant electrolyte abnormalities. Troponin was not elevated. CTA was negative for PE. The patient's initial EKG showed a normal sinus rhythm which appeared to be similar to patient's previous EKGs. While the patient was in the room, her heart rate did periodically increased to the 150s to 160s. The nurses were able to obtain an EKG when the patient was having an episode of tachycardia. I spoke with the on-call dobby loom weaver, Dr. Waggoner, who felt that the patient was in SVT during these episodes of tachycardia. He recommended admission and consultation with Dr. Broussard tomorrow for possible ablation. Case was discussed with the on-call [facility] hospitalist, who agreed to evaluate the patient. Impression Primary Impression: SVT (supraventricular tachycardia) Departure Information Dispostion Admitted as an inpatient Condition FAIR Referrals RV. Patterson MD (PCP) Forms WORK / SCHOOL INSTRUCTIONS, HOME CARE DOCUMENTATION FORM, IMPORTANT VISIT INFORMATION Patient Instructions [facility]
[2016-03-01 02:34] LABS: BASO % 0.3 %; BASO ABS # 0.03 K/uL (0-0.2); COMPLETE YES; EOS % 1.1 %; HEMATOCRIT 36.2 % (37-47); IG% 0.2 %; LYMPH % 25.2 %; LYMPH ABS # 2.79 K/uL (1.2-3.4); MEAN CELL VOLUME 72.7 fL (80-100); MEAN CORPUSCULAR HEMOGLOBIN 23.3 pg (25-34); MEAN PLATELET VOLUME 9.5 fL (7.4-10.4); NEUT % 64.2 %; PLATELET COUNT 228 K/uL (130-400); RED BLOOD COUNT 4.98 M/uL (4.2-5.4); WHITE BLOOD COUNT 11.05 K/uL (4.8-10.8)
[2016-03-01 02:52] LABS: ALT/SGPT 19 U/L (12-78); AST/SGOT 10 U/L (15-37); BLOOD UREA NITROGEN 9 mg/dl (7-18); CARBON DIOXIDE 28 mmol/L (21-32); CHLORIDE 101 mmol/L (98-107); CREATININE 0.66 mg/dl (0.60-1.20); GLUCOSE 145 mg/dl (70-99); MAGNESIUM 2.3 mg/dl (1.8-2.4); SODIUM 139 mmol/L (136-145)
[2016-03-01 02:54] LABS: PARTIAL THROMBOPLASTIN RATIO 1.1; PROTHROMBIN TIME (PATIENT) 10.5 SECONDS (9.0-12.0)
[2016-03-01 02:57] LABS: ALKALINE PHOSPHATASE 70 U/L (45-117)
[2016-03-01 03:02] VITALS: BP 122/84; PULSE 84; TEMP 36.5; O2SAT 91
[2016-03-01] MEDS: INSULIN ASPART 100 UNITS/ML 3 ML PEN SC SCH ×2 (06:30→12:22)
[2016-03-01 07:00] VITALS: BP 144/79; PULSE 92; TEMP 36.5; O2SAT 93
[2016-03-01] MEDS ORDERED: CYANOCOBALAMIN 500 MCG TAB (VIT B-12) PO SCH (09:00)
[2016-03-01] MEDS ORDERED: INSULIN GLARGINE SC SCH (09:00)
[2016-03-01] MEDS ORDERED: ASPIRIN 81 MG ECTAB PO SCH (09:00)
[2016-03-01] MEDS ORDERED: CHOLECALCIFEROL 1000 INTER.UNIT TAB PO SCH (09:00)
[2016-03-01] MEDS ORDERED: CETIRIZINE HCL 10 MG TAB PO SCH (09:00)
[2016-03-01] MEDS: BUDESONIDE/FORMOTEROL FUMARATE 160/4.5 60 PUFFS/INHALER INH SCH (09:08)
[2016-03-01] MEDS: RANITIDINE HCL 150 MG TAB PO SCH (09:09)
[2016-03-01] MEDS: hydrOXYzine HCL 10 MG TAB PO SCH (09:09)
[2016-03-01] MEDS: POTASSIUM CITRATE 10 MEQ TAB PO SCH (09:09)
[2016-03-01] MEDS: DOCUSATE SODIUM 100 MG CAP PO SCH (09:10)
[2016-03-01] MEDS: FUROSEMIDE 40 MG TAB PO SCH (09:10)
[2016-03-01 11:36] LABS: CKMB/CK RATIO 0.9 (0-3.0)
[2016-03-01 11:44] VITALS: BP 133/74; PULSE 90; TEMP 36.7; O2SAT 93
[2016-03-01 15:10] VITALS: BP 158/67; PULSE 93; TEMP 37; O2SAT 94
[2016-03-01] MEDS ORDERED: CRDCD/180 PO (15:11)
--- NOTE | 2016-03-01 15:14 | Discharge Instructions ---
Discharge Instructions Admission Admission Date: Feb 29, 2016 at 18:22 Admission Diagnosis: SVT. Care Plan - Goal(s): Decrease discomfort Care Plan - Instructions: Recommended Home Diet: 1800 Shaun Wt Reduction, AHA Phase I (2gmNa/LoCho) * Call 911 or immediately go to the Hospital Emergency Department nearest your location if you feel you have an emergent problem. Inpt VTE Proph given/why not?: SCD's Laboratory Results Test Results: Hemoglobin A1c Test 12/05/15 15:17 Range/Units Estimated Average Glucose 157 mg/dl Hemoglobin A1c 7.1 H 4.5-5.6 % Lipid Panel Test 12/05/15 15:17 Range/Units Triglycerides Level 269 H 0-150 mg/dl Cholesterol Level 134 0-200 mg/dl HDL Cholesterol 29 mg/dl Cholesterol/HDL Ratio 4.6 LDL Cholesterol, Calculated 51 mg/dl Kerry Devlin Recommendations: Call your doctor if: * Temperature above 101 degrees * Pain not relieved by pain medicine ordered * There is increased drainage or redness from any incision * You have any unanswered questions or concerns. Your Doctors Instructions noted above were prepared by provider Sharyn Singh.
[2016-03-01 15:33] VITALS: BP 158/67; PULSE 93; TEMP 37; O2SAT 94
--- NOTE | 2016-03-01 15:44 | Progress Note ---
Subjective Date of Service: Mar 01, 2016. Subjective Pt evaluation today including: conversation w/ patient, physical exam, chart review, lab review, review of studies, conversation w/ technology consultant Problem List Medical Problems: (1) Abdominal pain Status: Acute (2) Acute chest pain Status: Acute (3) Asthma exacerbation Status: Acute (4) Asthma exacerbation Status: Acute (5) Bronchitis Status: Acute (6) Constipation Status: Acute (7) Dehydration Status: Acute (8) Finger pain, right Status: Acute (9) Heart palpitations Status: Acute (10) Hip pain, left Status: Acute (11) History of COPD Status: Acute (12) History of pulmonary embolism Status: Acute (13) Hypoxia Status: Acute (14) Left-sided chest wall pain Status: Acute (15) Pneumonia Status: Acute (16) Postoperative pain Status: Acute (17) Shortness of breath Status: Acute (18) Tachycardia Status: Acute (19) Toe infection Status: Acute (20) Unstable angina Status: Acute (21) Vomiting Status: Acute Review of Systems Constitutional: No chills, No fatigue, No fever, No problem reported, No see HPI, No sweats, No weakness, No weight loss Eyes: No diplopia, No discharge, No eye pain, No problem reported, No redness, No see HPI, No worsening of vision ENT: No dental problems, No hearing loss, No nasal symptoms, No problem reported, No see HPI, No sore throat, No tinnitus, No trouble swallowing, No unusual epistaxis Respiratory: No cough, No dyspnea at rest, No dyspnea on exertion, No hemoptysis, No problem reported, No see HPI, No shortness of breath, No sputum, No wheezing Cardiac: + palpitations, No PND, No chest pain, No claudication, No edema, No orthopnea, No problem reported, No see HPI Abdomen: No GI bleeding, No constipation, No diarrhea, No nausea, No pain, No problem reported, No see HPI, No vomiting Musculoskeletal: No calf pain, No joint pain, No muscle pain, No problem reported, No see HPI, No swelling Neurologic: No balance problems, No memory loss, No numbness/tingling, No paralysis, No problem reported, No see HPI, No vertigo, No weakness Psychiatric: No anhedonism, No anxiety, No depression symptoms, No insomnia, No problem reported, No see HPI, No substance abuse Heme: No abnormal bleeding/bruising, No clotting problems, No night sweats, No problem reported, No see HPI, No swollen lymph nodes Endo: No excessive thirst, No excessive urination, No fatigue, No problem reported, No see HPI Skin: No bleeding, No color change, No itch, No new/changing skin lesions, No problem reported, No rash, No see HPI Medications Current Inpatient Medications Medications (Trade) Dose Ordered Sig/Neida Route Start Time Stop Time Status Last Admin Dose Admin Ioversol (Optiray 320) 100 ml UD PRN IV 02/29/16 14:00 03/04/16 13:59 Acetaminophen (Tylenol Tab) 650 mg Q4H PRN PO 02/29/16 18:15 03/30/16 18:14 Zolpidem Tartrate (Ambien Tab) 5 mg HSZ PRN PO 02/29/16 18:15 03/30/16 18:14 Nitroglycerin (Nitrostat Tab) 0.4 mg UD PRN SL 02/29/16 18:15 03/30/16 18:14 Lorazepam (Ativan Inj) 0.5 mg Q4H PRN IV 02/29/16 18:15 03/30/16 18:14 Magnesium Hydroxide (Milk Of Magnesia Susp) 30 ml Q6H PRN PO 02/29/16 18:15 03/30/16 18:14 Bisacodyl (Dulcolax Supp) 10 mg DAILY PRN AK 02/29/16 18:15 03/30/16 18:14 Diphenhydramine HCl (Benadryl Inj) 25 mg Q4H PRN IV 02/29/16 18:15 03/30/16 18:14 Al Hydrox/Mg Hydrox/ Simethicone 15 ml 15 ml Q4H PRN PO 02/29/16 18:15 03/30/16 18:14 Promethazine HCl/ Sodium Chloride (Phenergan Inj/ Nss 50ml) 50.5 ml @ 202 mls/hr Q4H PRN IV 02/29/16 18:15 03/30/16 18:14 Ondansetron HCl (Zofran Inj) 4 mg Q6H PRN IV 02/29/16 18:15 03/30/16 18:14 Docusate Sodium (coLACE CAP) 100 mg BID PO 02/29/16 21:00 03/30/16 20:59 03/01/16 09:10 100 MG Morphine Sulfate (MoRPHine SULFATE INJ) 2 mg Q2H PRN IV 02/29/16 18:15 03/14/16 18:14 Morphine Sulfate (MoRPHine SULFATE INJ) 4 mg Q2H PRN IV 02/29/16 18:15 03/14/16 18:14 Insulin Aspart (novoLOG ASPART) SLIDING SCALE If C... ACHS SC 02/29/16 21:00 03/30/16 20:59 03/01/16 12:22 14 UNITS Glucose (Glucose 40% Gel) UD PRN PO 02/29/16 18:15 03/30/16 18:14 Glucose (Glucose Chew Tab) 1 tabs UD PRN PO 02/29/16 18:15 03/30/16 18:14 Dextrose (Dextrose 50% 50ML Syringe) 50 ml UD PRN IV 02/29/16 18:15 03/30/16 18:14 Glucagon (Glucagon Inj) 1 mg UD PRN SQ 02/29/16 18:15 03/30/16 18:14 Aspirin (Ecotrin Tab) 81 mg DAILY PO 03/01/16 09:00 03/31/16 08:59 03/01/16 09:09 81 MG Atorvastatin Calcium (Lipitor Tab) 10 mg QPM PO 02/29/16 21:00 03/30/16 20:59 02/29/16 20:59 10 MG Cetirizine HCl (zyrTEC TAB) 10 mg QAM PO 03/01/16 09:00 03/31/16 08:59 03/01/16 09:09 10 MG Enalapril Maleate (Vasotec Tab) 2.5 mg QPM PO 02/29/16 21:00 03/30/16 20:59 02/29/16 20:59 2.5 MG Furosemide (Lasix Tab) 40 mg BID17 PO 02/29/16 21:00 03/30/16 20:59 03/01/16 09:10 40 MG Hydroxyzine HCl (Vistaril Tab) 10 mg BID PO 02/29/16 21:00 03/30/16 20:59 03/01/16 09:09 10 MG Insulin Glargine (Lantus Vial) 90 unit QAM SC 03/01/16 09:00 03/31/16 08:59 03/01/16 09:12 90 UNIT Lidocaine (AneCream 4%) 1 appln QID PRN EXT 02/29/16 18:15 03/30/16 18:14 Montelukast Sodium (Singulair Tab) 10 mg HS PO 02/29/16 21:00 03/30/16 20:59 02/29/16 20:59 10 MG Nystatin/ Triamcinolone Acetonide (Mycogen II Crm) 1 appln BID PRN EXT 02/29/16 18:15 03/30/16 18:14 Ranitidine HCl (zANTac TAB) 150 mg Q12 PO 02/29/16 21:00 03/30/16 20:59 03/01/16 09:09 150 MG Tramadol HCl (Ultram Tab) 50 mg QID PRN PO 02/29/16 18:15 03/30/16 18:14 Cholecalciferol (Vitamin D Tab) 2,000 inter.unit QAM PO 03/01/16 09:00 03/31/16 08:59 03/01/16 09:10 2,000 INTER.UNIT Cyanocobalamin (Vitamin B-12 Tab) 1,000 mcg QAM PO 03/01/16 09:00 03/31/16 08:59 03/01/16 09:09 1,000 MCG Budesonide/ Formoterol Fumarate 2 puffs 2 puffs BID INH 02/29/16 21:00 03/30/16 20:59 03/01/16 09:08 2 PUFFS Lorazepam/Syringe (Ativan Inj/ Syringe) 1 ml @ 1 mls/min Q4H PRN IV 02/29/16 18:45 03/30/16 18:44 Potassium Citrate (Urocit-K Tab) 20 meq BID PO 02/29/16 21:00 03/30/16 20:59 03/01/16 09:09 20 MEQ Objective Vital Signs Date Time Temp Pulse Resp B/P Pulse Ox O2 Delivery O2 Flow Rate FiO2 03/01/16 15:10 37.0 93 19 158/67 94 Room Air 03/01/16 12:15 Room Air 03/01/16 11:44 36.7 90 18 133/74 93 Room Air 03/01/16 08:05 Room Air 03/01/16 07:00 36.5 92 18 144/79 93 Room Air 03/01/16 04:00 Room Air 03/01/16 03:02 36.5 84 16 122/84 91 Room Air 03/01/16 00:00 Room Air 02/29/16 23:29 36.6 94 18 127/84 90 Room Air 02/29/16 21:29 91 Room Air 02/29/16 21:22 91 Room Air 02/29/16 20:55 36.7 96 16 132/78 91 Room Air 02/29/16 19:40 99 21 114/66 94 Room Air 02/29/16 19:37 99 25 94 02/29/16 19:07 102 23 93 02/29/16 18:58 112/92 02/29/16 18:37 106 26 91 02/29/16 18:32 104 29 93 02/29/16 18:29 110/63 02/29/16 18:02 111 21 92 02/29/16 17:59 120/72 02/29/16 17:38 94 Room Air 02/29/16 17:32 111 23 95 02/29/16 17:29 103/80 02/29/16 17:02 134 20 94 02/29/16 16:57 143 121/65 02/29/16 16:33 115 19 02/29/16 16:03 165 19 94 02/29/16 15:58 122/74 02/29/16 15:50 98 22 94 02/29/16 15:43 123/81 Physical Exam General Appearance: WD/WN, no apparent distress Eyes: normal inspection, PERRL, EOMI ENT: normal ENT inspection, hearing grossly normal, TMs normal, pharynx normal Neck: supple, no adenopathy Respiratory/Chest: chest non-tender, lungs clear, normal breath sounds, no respiratory distress Cardiovascular: regular rate, rhythm, no edema, no gallop, no JVD Abdomen: normal bowel sounds, non tender, soft, no organomegaly, no pulsatile mass Extremities: normal range of motion, non-tender, normal inspection, no pedal edema 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iatric: 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 as tested, no motor/sensory deficits, alert, normal mood/affect, oriented x 3 Skin: normal color, warm/dry, no rash Laboratory Results Last 24 Hours Test 02/29/16 20:19 03/01/16 02:26 03/01/16 07:19 03/01/16 10:40 Bedside Glucose 178 mg/dl 168 mg/dl White Blood Count 11.05 K/uL Red Blood Count 4.98 M/uL Hemoglobin 11.6 g/dL Hematocrit 36.2 % Mean Corpuscular Volume 72.7 fL Mean Corpuscular Hemoglobin 23.3 pg Mean Corpuscular Hemoglobin Concent 32.0 g/dl Platelet Count 228 K/uL Mean Platelet Volume 9.5 fL Neutrophils (%) (Auto) 64.2 % Lymphocytes (%) (Auto) 25.2 % Monocytes (%) (Auto) 9.0 % Eosinophils (%) (Auto) 1.1 % Basophils (%) (Auto) 0.3 % Neutrophils # (Auto) 7.10 K/uL Lymphocytes # (Auto) 2.79 K/uL Monocytes # (Auto) 0.99 K/uL Eosinophils # (Auto) 0.12 K/uL Basophils # (Auto) 0.03 K/uL RDW Standard Deviation 45.2 fL RDW Coefficient of Variation 17.3 % Immature Granulocyte % (Auto) 0.2 % Immature Granulocyte # (Auto) 0.02 K/uL Prothrombin Time 10.5 SECONDS Prothromb Time International Ratio 1.0 Activated Partial Thromboplast Time 28.9 SECONDS Partial Thromboplastin Ratio 1.1 Sodium Level 139 mmol/L Potassium Level 4.0 mmol/L Chloride Level 101 mmol/L Carbon Dioxide Level 28 mmol/L Anion Gap 10.0 mmol/L Blood Urea Nitrogen 9 mg/dl Creatinine 0.66 mg/dl Est Creatinine Clear Calc Drug Dose 128.2 ml/min Estimated GFR () 112.9 Estimated GFR (Non- 97.4 BUN/Creatinine Ratio 14.0 Random Glucose 145 mg/dl Calcium Level 9.0 mg/dl Magnesium Level 2.3 mg/dl Total Bilirubin 0.3 mg/dl Direct Bilirubin < 0.1 mg/dl Aspartate Amino Transf (AST/SGOT) 10 U/L Alanine Aminotransferase (ALT/SGPT) 19 U/L Alkaline Phosphatase 70 U/L Total Creatine Kinase 103 U/L 109 U/L Creatine Kinase MB 1.0 ng/ml 1.0 ng/ml Creatine Kinase MB Ratio 1.0 0.9 Troponin I < 0.015 ng/ml < 0.015 ng/ml Total Protein 7.3 gm/dl Albumin 3.2 gm/dl Test 03/01/16 11:29 Bedside Glucose 336 mg/dl Assessment and Plan The patient is a 52-year-old female who presents to the emergency department with a recurrence of palpitations. Paroxysmal atrial tachycardia, self-limited, but by history recurrent--the patient was admitted to the telemetry unit, will for serial cardiac enzymes, cardiac rhythm monitoring, Her potassium is 3.7, and magnesium is 1.9. she was given oral supplementation of potassium and magnesium IV, to optimize potassium and magnesium. consult Dr. Aarti carlisle who started her on Cardizem CD 180mg and will place a holter on her as an out patient Diabetes mellitus COPD--continue pro-air HFA 2 puffs every 4 hours when necessary. Hypercholesterolemia--continue atorvastatin 10 mg by mouth every afternoon. GERD--continue ranitidine 50 mg by mouth every 12 hours. B12 deficiency--continue vitamin B12 supplement 1000 g by mouth every afternoon. Allergy--continue cetirizine 10 mg by mouth every morning. Pain management increased tramadol 50 mg every afternoon when necessary 2 every 4 hours when necessary..
--- NOTE | 2016-03-01 15:48 | Discharge Summary ---
Discharge Summary Admission Date: Feb 29, 2016 at 18:22 Discharge Date: Mar 01, 2016 Discharge Disposition: Home Immunizations: Have You Had Influenza Vaccine: Yes Influenza Vaccine Date: Nov 26, 2014 History of Tetanus Vaccine?: No History of Pneumococcal: Yes Pneumococcal Date: Mar 29, 2013 History of Hepatitis B Vaccine: No Medication Reconciliation New Medications: Diltiazem Hcl Coated Beads (Cardizem Cd) 180 Mg Cap 1 CAP PO DAILY for 30 Days, #30 CAP 5 Refills Continued Medications: Acetaminophen (Tylenol) 325 Mg Tab 4 TABS PO TID PRN for Headache or Pain Aspirin (Aspirin Ec) 81 Mg Tab 81 MG PO DAILY Atorvastatin (Lipitor) 10 Mg Tab 10 MG PO QPM, TAB Cetirizine (Zyrtec) 10 Mg Tab 10 MG PO QAM, TAB Cholecalciferol (Vitamin D3) 2,000 Unit Tab 2000 UNITS PO QAM Cyanocobalamin (Vitamin B12) 1,000 Mcg Tab 1000 MCG PO QPM Enalapril Maleate (Vasotec) 2.5 Mg Tab 2.5 MG PO QPM, TAB Furosemide (Lasix) 40 Mg Tab 40 MG PO BID, TAB Hydroxyzine Hcl (Atarax) 10 Mg Tab 10 MG PO BID, TAB Insulin Glargine (Lantus) Vial 90 UNITS SC QAM, 0 Refills Insulin Lispro (Humalog) Inj UNITS SC WM, VIAL UP TO 260 UNITS DAILY Lidocaine (Aspercreme W/Lidocaine) 4 % Cre 1 APPLN TOP PRN UD Liraglutide (Victoza) 18 Mg/3 Ml Inj 1.8 MCG SQ QPM Metformin Hcl (Glucophage) 1,000 Mg Tab 1000 MG PO BIDM, TAB Mometasone Furoate-Formoterol (Dulera 200/5 Mcg) 1 Aer Aer 2 PUFFS INH BID for 30 Days, #13 GM 3 Refills Montelukast Sodium (Singulair) 10 Mg Tab 10 MG PO HS, TAB Nystatin-Triamcinolone (Nystatin/Triamcinolone) 1 Cre Cre 1 APPLN TOP BID PRN for Potassium Citrate (Alkalinizer (Potassium Citrate ER) 1,080 Mg Tab 10 MEQ PO BID, TAB Ranitidine (Zantac) 150 Mg Tab 150 MG PO Q12, TAB Tramadol (Ultram) 50 Mg Tab 50 MG PO QPM PRN for Pain, TAB Discontinued Medications: Albuterol (Proair Hfa) Aers 1-2 PUFFS INH Q4-6HRS PRN for SOB/Wheezing Albuterol Soln (Proventil 0.083% 2.5MG/3ML) Nebu 2.5 MG INH Q6H PRN for Wheezing, EA Referrals At Discharge Follow up Referrals: [facility]ist Referral - Within 1-2 Weeks with Jaylen Broussard M.D. Discharge Exam Review of Systems: Constitutional: No chills, No fatigue, No fever, No problem reported, No sweats, No weakness, No weight loss Eyes: No diplopia, No discharge, No eye pain, No problem reported, No redness, No worsening of vision ENT: No dental problems, No hearing loss, No nasal symptoms, No problem reported, No sore throat, No tinnitus, No trouble swallowing, No unusual epistaxis Respiratory: No cough, No dyspnea at rest, No dyspnea on exertion, No hemoptysis, No problem reported, No shortness of breath, No sputum, No wheezing Cardiovascular: No PND, No chest pain, No claudication, No edema, No orthopnea, No palpitations, No problem reported Musculoskeletal: No calf pain, No joint pain, No muscle pain, No problem reported, No swelling Genitourinary - Female: No dysmenorrhea, No dysuria, No hematuria, No menorrhagia, No metrorrhagia, No , No problem reported, No rash, No urinary frequency, No urinary incontinence, No urinary retention, No urinary urgency, No vaginal bleeding, No vaginal discharge, No vaginal itching, No vulvodynia Genitourinary - Male: No dysuria, No hematuria, No impotence, No lesions, No penile discharge, No problem reported, No urinary frequency, No urinary hesitancy, No urinary incontinence, No urinary retention, No urinary urgency Neurologic: No balance problems, No memory loss, No numbness/tingling, No paralysis, No problem reported, No vertigo, No weakness Psychiatric: No anhedonism, No anxiety, No depression symptoms, No insomnia , No problem reported, No substance abuse Endocrine: No excessive thirst, No excessive urination, No fatigue, No problem reported Hematologic / Lymphatic: No abnormal bleeding/bruising, No clotting problems , No night sweats, No problem reported, No swollen lymph nodes Integumentary: No bleeding, No color change, No itch, No new/changing skin lesions, No problem reported, No rash Physical Exam: General Appearance: no apparent distress Eyes: normal inspection, PERRL, EOMI ENT: normal ENT inspection, hearing grossly normal, TMs normal Neck: supple, no adenopathy, thyroid normal, no JVD Respiratory/Chest: chest non-tender, lungs clear, normal breath sounds, no respiratory distress, no accessory muscle use Cardiovascular: regular rate, rhythm, no edema, no gallop, no JVD, no murmur Abdomen / GI: normal bowel sounds, non tender, soft, no organomegaly, no pulsatile mass, normal rectal exam Extremities: normal inspection, no calf tenderness, normal capillary refill , no pedal edema 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iatric: drainlayer II-XII nml as tested, no motor/sensory deficits , alert, normal mood/affect, normal reflexes, oriented x 3 Skin: normal color, warm/dry, no rash Hospital Course The patient is a 52-year-old female who presents to the emergency department with a recurrence of palpitations. she was found to have Paroxysmal atrial tachycardia, self-limited, but by history recurrent--the patient was admitted to the telemetry unit, will for serial cardiac enzymes, cardiac rhythm monitoring, Her potassium is 3.7, and magnesium is 1.9. she was given oral supplementation of potassium and magnesium IV, to optimize potassium and magnesium. consult Dr. Broussard appreciated who started her on Cardizem CD 180mg and will place a holter on her as an out patient for her Diabetes mellitus, she was continued on insulin for COPD--continue pro-air HFA 2 puffs every 4 hours when necessary. and her albuterol was switched to xopenex found stable for discharge and follow up with Dr. Broussard as an out patient This includes examination of the patient, discharge planning, medication reconciliation, and communication with other providers. Discharge Instructions Please refer to the electronic Patient Visit Report (Discharge Instructions) for additional information.
[2016-03-01] MEDS ORDERED: LEVA45AE INH (15:50)
--- NOTE | 2016-03-01 15:56 | ECHOCARDIOGRAM REPORT ---
*NOTICE TO RECEIVING [employer] This information is strictly Confidential and protected under [place] law. [place] law prohibits you from making any further disclosure of this information unless further disclosure is expressly permitted by the written consent of the person to whom it pertains or is authorized by law. A general authorization for the release of medical or other information is not sufficient for this purpose. Hospital accepts no responsibility if the information is made available to any other person, INCLUDING THE PATIENT. Interpretation Summary * Name: JOSE ANGEL POSADA Study Date: 03/01/2016 07:40 AM BP: 122/84 mmHg * Patient Location: [facility]\S\N288\S\2 HR: 81 * : 1955 (M/d/yyyy) Gender: Female Height: 63 in * Age: 60 yrs Ethnicity: VA Weight: 308 lb * Ordering Physician: Tai Rojas * Referring Physician: Nicolas Mendez * Performed By: Zeinab Evans RDCS * * Reason For Study: SVT * BSA: 2.3 m2 * -- Conclusions -- * 1. Normal LV size. Mild concentric LVH. * 2. Normal LV systolic function. LVEF 55-60% * 3. Grade II diastolic dysfunction. * 4. Grossly normal RV size and function. * 5. No significant valvular pathology. * 6. Compared with prior study on 12/29/2014: No significant changes. Procedure Details * A complete two-dimensional transthoracic echocardiogram was performed (2D, M-mode, Doppler and color flow Doppler). * A contrast injection of Definity was performed to improve assessment of LV function. * Contrast was injected into an intravenous site in the right arm. * One vial of Definity ultrasound contrast was diluted in normal saline to a total volume of 10 ml. A total of '2' ml of solution was administered during imaging. * Lot # [id number] of Definity utilized for procedure. * Expiration date 1 JUL 27. * The attending nurse who injected the contrast agent was Ekaterina Deluca RN. Left Ventricle * The left ventricle is grossly normal size. * There is mild concentric left ventricular hypertrophy. * Ejection Fraction = 55-60%. * Septal motion is consistent with conduction abnormality. Right Ventricle * The right ventricle is not well visualized. * The right ventricle is grossly normal size. * The right ventricular systolic function is normal as assessed by tricuspid annular plane systolic excursion (TAPSE) (normal >1.5 cm). Atria * The left atrium is mildly dilated. * Right atrial size is normal. * No ASD detected; PFO is not assessed. Mitral Valve * The mitral valve is grossly normal. * Mitral stenosis is absent. * Significant mitral regurgitation is absent. Tricuspid Valve * The tricuspid valve is not well visualized. * There is trace tricuspid regurgitation. Aortic Valve * The aortic valve is not well visualized. * No hemodynamically significant valvular aortic stenosis. * There is no significant aortic regurgitation. Pulmonic Valve * The pulmonary valve is inadequately visualized, but the Doppler data is adequate for interpretation. * There is no pulmonic valvular stenosis. * There is no pulmonic valvular regurgitation. Great Vessels * The aortic root and proximal ascending aorta are normal sized. Pericardium/Pleural * There is no pericardial effusion. Great Vessels * Normal inferior vena cava size and collapsability with sniff indicates a normal right atrial pressure of 3 mmHg Left Ventricular Diastolic Function * Diastolic dysfunction, Grade II (pseudonormalization pattern). MMode 2D Measurements and Calculations IVSd 1.2 cm LVIDd 4.9 cm LVIDs 3.3 cm LVPWd 1.1 cm IVS/LVPW 1.1 FS 33.1 % EDV(Teich) 112.6 ml ESV(Teich) 43.3 ml EF(Teich) 61.6 % EDV(cubed) 117.4 ml ESV(cubed) 35.1 ml EF(cubed) 70.1 % LV mass(C)d 207.5 grams LV mass(C)dI 89.3 grams/m\S\2 CO(Teich) 5.8 l/min CI(Teich) 2.5 l/min/m\S\2 SV(Teich) 69.3 ml SI(Teich) 29.8 ml/m\S\2 CO(cubed) 6.8 l/min CI(cubed) 2.9 l/min/m\S\2 SV(cubed) 82.3 ml SI(cubed) 35.4 ml/m\S\2 Ao root diam 2.6 cm Ao root area 5.5 cm\S\2 ACS 1.9 cm asc Aorta Diam 2.5 cm LVAd ap4 31.4 cm\S\2 LVLd ap4 7.9 cm EDV(MOD-sp4) 102.0 ml LVAs ap4 18.9 cm\S\2 LVLs ap4 6.3 cm ESV(MOD-sp4) 46.2 ml EF(MOD-sp4) 54.7 % LVAd ap2 32.3 cm\S\2 LVLd ap2 8.2 cm EDV(MOD-sp2) 104.0 ml LVAs ap2 20.3 cm\S\2 LVLs ap2 7.4 cm ESV(MOD-sp2) 46.6 ml EF(MOD-sp2) 55.2 % CO(MOD-sp4) 4.6 l/min CI(MOD-sp4) 2.0 l/min/m\S\2 SV(MOD-sp4) 55.8 ml SI(MOD-sp4) 24.0 ml/m\S\2 CO(MOD-sp2) 4.8 l/min CI(MOD-sp2) 2.1 l/min/m\S\2 SV(MOD-sp2) 57.4 ml SI(MOD-sp2) 24.7 ml/m\S\2 Doppler Measurements and Calculations MV E max [place] 95.6 cm/sec MV A max [place] 95.1 cm/sec MV E/A 1.0 MV dec time 0.24 sec Ao V2 max 162.1 cm/sec Ao max PG 10.5 mmHg Ao max PG (full) 6.2 mmHg LV V1 max PG 4.3 mmHg LV V1 max 103.8 cm/sec PA V2 max 124.9 cm/sec PA max PG 6.2 mmHg PA acc slope 670.4 cm/sec\S\2 PA acc time 0.16 sec TR max [place] 214.5 cm/sec PA pr(Accel) 7.7 mmHg
--- NOTE | 2016-03-01 17:52 | Cardiology Consultation ---
Cardiology Consultation Date of Consultation: Mar 01, 2016. Requesting Physician: Dr. Rojas Reason for Consultation: SVT Pt evaluation today including: conversation w/ patient, conversation w/ family , physical exam, lab review, review of studies, review of inpatient medication list History of Present Illness This is a 52-year-old woman who has a history of palpitations, she has been to the emergency room in the past but the arrhythmia has terminated before documentation. She presented now with a rapid heart rate which was recorded. She reports relatively frequent episodes of this arrhythmia, she feels the rapid heart rate, feels a little short of breath and a little bit dizzy but does not have presyncope or syncope. This arrhythmia terminated in the emergency room. Past Medical/Surgical History Medical Problems: (1) Asthma Status: Chronic (2) Cholecystectomy Status: Resolved (3) Chronic obstructive lung disease Status: Chronic (4) Diabetes mellitus Status: Chronic (5) Hysterectomy Status: Resolved (6) Sleep apnea Status: Chronic Family History Diabetes mellitus Hypertension Kidney stones Social History Smoking Status: Former Smoker History of Alcohol Use: Yes (occasionally) Review of Systems Constitutional: No fever, No weakness, No weight loss Respiratory: + shortness of breath, No cough, No dyspnea at rest, No dyspnea on exertion, No hemoptysis, No problem reported, No see HPI, No sputum, No wheezing Cardiac: + palpitations, No PND, No chest pain, No claudication, No edema, No orthopnea, No problem reported, No see HPI Abdomen: No GI bleeding, No diarrhea, No nausea, No pain, No vomiting Female : No problem reported Neurologic: No balance problems, No numbness/tingling, No paralysis, No weakness Heme: No abnormal bleeding/bruising, No clotting problems Endo: No fatigue Skin: No problem reported All Other Systems: Reviewed and Negative Allergies Coded Allergies: Tetanus Toxoid (Verified Allergy, Unknown, ARM SWELLING ITCHY, 03/30/16) Physical Exam Vital Signs Past 12 Hours Date Time Temp Pulse Resp B/P Pulse Ox O2 Delivery O2 Flow Rate FiO2 03/01/16 15:33 37.0 93 19 94 Room Air 03/01/16 15:10 37.0 93 19 158/67 94 Room Air 03/01/16 12:15 Room Air 03/01/16 11:44 36.7 90 18 133/74 93 Room Air 03/01/16 08:05 Room Air 03/01/16 07:00 36.5 92 18 144/79 93 Room Air Constitutional: General Apperance: heathly-appearing Level of Distress: NAD Psychiatric: Mental Status: active & alert Head: normocephalic Eyes: EOM: EOMI ENMT: normal ENT inspection, hearing grossly normal Neck: supple, no masses Lungs: Respiratory effort: no dyspnea, good air movement Auscultation: breath sounds normal, no wheezing Cardiovascular: Heart Auscultation: RRR, no murmurs, no rubs, no gallops Peripheral Pulses: Bruits: none appreciated Abdomen: Bowel Sounds: normal Inspection & Palpation: soft, no tenderness, guarding & rebound, no masses Musculoskeletal: normal strength (5/5 throughout) Extremities: no edema Neurologic: Cranial Nerves: grossly intact Sensation: grossly intact Data Laboratory Results: Last 24 Hours Test 02/29/16 20:19 03/01/16 02:26 03/01/16 07:19 03/01/16 10:40 Bedside Glucose 178 mg/dl 168 mg/dl White Blood Count 11.05 K/uL Red Blood Count 4.98 M/uL Hemoglobin 11.6 g/dL Hematocrit 36.2 % Mean Corpuscular Volume 72.7 fL Mean Corpuscular Hemoglobin 23.3 pg Mean Corpuscular Hemoglobin Concent 32.0 g/dl Platelet Count 228 K/uL Mean Platelet Volume 9.5 fL Neutrophils (%) (Auto) 64.2 % Lymphocytes (%) (Auto) 25.2 % Monocytes (%) (Auto) 9.0 % Eosinophils (%) (Auto) 1.1 % Basophils (%) (Auto) 0.3 % Neutrophils # (Auto) 7.10 K/uL Lymphocytes # (Auto) 2.79 K/uL Monocytes # (Auto) 0.99 K/uL Eosinophils # (Auto) 0.12 K/uL Basophils # (Auto) 0.03 K/uL RDW Standard Deviation 45.2 fL RDW Coefficient of Variation 17.3 % Immature Granulocyte % (Auto) 0.2 % Immature Granulocyte # (Auto) 0.02 K/uL Prothrombin Time 10.5 SECONDS Prothromb Time International Ratio 1.0 Activated Partial Thromboplast Time 28.9 SECONDS Partial Thromboplastin Ratio 1.1 Sodium Level 139 mmol/L Potassium Level 4.0 mmol/L Chloride Level 101 mmol/L Carbon Dioxide Level 28 mmol/L Anion Gap 10.0 mmol/L Blood Urea Nitrogen 9 mg/dl Creatinine 0.66 mg/dl Est Creatinine Clear Calc Drug Dose 128.2 ml/min Estimated GFR () 112.9 Estimated GFR (Non- 97.4 BUN/Creatinine Ratio 14.0 Random Glucose 145 mg/dl Calcium Level 9.0 mg/dl Magnesium Level 2.3 mg/dl Total Bilirubin 0.3 mg/dl Direct Bilirubin < 0.1 mg/dl Aspartate Amino Transf (AST/SGOT) 10 U/L Alanine Aminotransferase (ALT/SGPT) 19 U/L Alkaline Phosphatase 70 U/L Total Creatine Kinase 103 U/L 109 U/L Creatine Kinase MB 1.0 ng/ml 1.0 ng/ml Creatine Kinase MB Ratio 1.0 0.9 Troponin I < 0.015 ng/ml < 0.015 ng/ml Total Protein 7.3 gm/dl Albumin 3.2 gm/dl Test 03/01/16 11:29 Bedside Glucose 336 mg/dl Imaging: An echocardiogram today shows normal left ventricular size and function with mild left ventricular hypertrophy and grade 2 diastolic dysfunction. Normal right ventricular size and function and no significant valvular abnormalities. EKG: Several 12-lead electrocardiograms are available, from 02/29/2016 at 1424 she is in sinus rhythm with frequent premature atrial beats (she has a right bundle branch block pattern). An electrocardiogram from 02/29/2016 at 1454 shows a sustained her rhythm, atrial activity is difficult to discern but it appears to be present. I cannot exclude a reentrant type arrhythmia versus an atrial tachycardia. An electrocardiogram this morning shows sinus rhythm at 79 bpm with a right bundle branch block pattern. Telemetry reviewed: Sinus rhythm with very frequent episodes of tachycardia which appears to be a long RP tachycardia, probably paroxysmal atrial tachycardia. These are often brief but some are more prolonged. Assessment & Plan #1. SVT: Her 12-lead electric cardiogram from the emergency room shows a regular supraventricular arrhythmia, the mechanism cannot be determined. Could be a reentrant rhythm or it may be a sustained episode of atrial tachycardia. Based on telemetry monitoring the atrial tachycardia is more likely, and she has it very frequently. She had multiple episodes of that throughout the day, many of which she was unaware. They tend to be brief but could be several minutes in duration. The rate was consistently around 150 bpm. She wants very much to go home and I think that is safe, I suspect she has had this for some time based on her history. I think we should treat it however and I would recommend treating it with diltiazem. I will follow this up with a 24-hour Holter monitor as an outpatient in about 2 weeks and I'll see her in follow-up after that. If conservative management with calcium or beta-blockade is ineffective we could consider antiarrhythmic therapy or perhaps it would be prudent to perform electrophysiologic study at that point to make sure we have the correct diagnosis. It is possible it is a rhythm that we could ablate. Thank you for allowing me to participate in her care.
--- NOTE | 2016-03-04 12:52 | EDITING REQUIRED CODING QUERY ---
CODING QUERY To promote full compliance with coding requirements relating to patient care, provider participation is requested in all cases of cable operator uncertainty. Please assist us with the question(s) below: Coding Question(s): Dr. Rojas, The following is documented in the H&P: Allergy--continue cetirizine 10 mg by mouth every morning. Please specify the type of allergy that was being treated: (x ) Seasonal ( ) Dust ( ) Pollen ( ) Animal ( ) Food ( ) Grass ( ) Drug, please specify: ( ) Other, please explain Physician's Response(s): Thank you for your time, JOSE Torres, FINANCIAL ASSISTANCE SPECIALIST
[2016-06-23] MEDS ORDERED: BENZ100C84 PO (11:56)
[2016-06-23] MEDS ORDERED: HYDR0.75 PO (11:56)
[2016-06-23] MEDS ORDERED: ONDA4TAB46 PO (12:01)
[2016-06-23] MEDS ORDERED: MONT1TAB3 PO (16:13)
[2016-08-24] MEDS ORDERED: POTA1080 PO (10:03)
[2016-08-24] MEDS ORDERED: METF-384 PO (10:03)
[2016-08-24] MEDS ORDERED: INSDGI SC (12:01)
[2016-08-24] MEDS ORDERED: INSU100I SC (12:01)
== END 2016-03-01 16:18 | disposition home or self-care (01) | DRG 310 ==
LOC: ENRESERVDT → ENRESERVTM → C.EDB 13:26 → C.MED 18:22
PROVIDERS: ADMIT Hospitalist; ATTEND Hospitalist
DX: I47.1 Supraventricular tachycardia (principal); E87.6 Hypokalemia; E11.9 Type 2 diabetes mellitus without complications; J44.9 Chronic obstructive pulmonary disease, unspecified; E78.00 Pure hypercholesterolemia, unspecified; K21.9 Gastro-esophageal reflux disease without esophagitis; E53.8 Deficiency of other specified B group vitamins; J30.2 Other seasonal allergic rhinitis; Z87.891 Personal history of nicotine dependence; Z79.4 Long term (current) use of insulin; Z79.51 Long term (current) use of inhaled steroids; Z79.82 Long term (current) use of aspirin; Z79.891 Long term (current) use of opiate analgesic; Z79.899 Other long term (current) drug therapy

== ENCOUNTER 2016-03-25 11:14 | Emergency (ER) | payer OTHER ==
[~2016-03-25] VITALS: Ht 160 cm; Wt 140.0 kg
[~2016-03-25 11:14] MED LIST changes: -ALBU0.08 INH; -ALBU1AER9 INH; +CRDCD/180 PO; -IBUP-1050 PO; +LEVA45AE INH; -NAPR250T2 PO; -ONDA4TAB10 SL
--- NOTE | 2016-03-25 12:02 | DIAGNOSTIC IMAGING REPORT ---
CHEST ONE VIEW PORTABLE CLINICAL HISTORY: cp dyspnea COMPARISON STUDY: 02/06/2016 FINDINGS: Chronic elevation right hemidiaphragm. Lungs otherwise are clear. No evidence for cardiac enlargement. Stable postoperative changes right shoulder. IMPRESSION: Chronic and postoperative change. No acute process. Electronically signed by: Artis Koehler M.D. 03/25/2016 12:01 PM Dictated Date/Time: 03/25/2016 12:00 PM
[2016-03-25 12:05] VITALS: O2SAT 97
[2016-03-25 12:58] LABS: HEMATOCRIT 35.9 % (37-47); MEAN CELL VOLUME 72.7 fL (80-100); MEAN CORPUSCULAR HEMOGLOBIN 22.9 pg (25-34); MEAN CORPUSCULAR HGB CONC 31.5 g/dl (32-36); MEAN PLATELET VOLUME 9.8 fL (7.4-10.4); PLATELET COUNT 251 K/uL (130-400); RED BLOOD COUNT 4.94 M/uL (4.2-5.4); WHITE BLOOD COUNT 9.94 K/uL (4.8-10.8)
[2016-03-25 13:11] LABS: PARTIAL THROMBOPLASTIN RATIO 1.1; PROTHROMBIN TIME (PATIENT) 10.4 SECONDS (9.0-12.0)
[2016-03-25 13:13] LABS: ALT/SGPT 22 U/L (12-78); AST/SGOT 11 U/L (15-37); BLOOD UREA NITROGEN 5 mg/dl (7-18); BUN/CREATININE RATIO 8.3 (10-20); CALCIUM 8.9 mg/dl (8.5-10.1); CARBON DIOXIDE 24 mmol/L (21-32); CHLORIDE 102 mmol/L (98-107); CREATININE 0.66 mg/dl (0.60-1.20); GLUCOSE 140 mg/dl (70-99); POTASSIUM 3.7 mmol/L (3.5-5.1); SODIUM 139 mmol/L (136-145)
[2016-03-25 13:18] LABS: ALB/GLOB RATIO 0.7 (0.9-2); ALKALINE PHOSPHATASE 67 U/L (45-117); CKMB/CK RATIO 1.3 (0-3.0)
[2016-03-25 14:19] VITALS: O2SAT 97; Ht 160 cm; Wt 140.0 kg
--- NOTE | 2016-03-25 14:50 | Medical Student: [facility] ---
Med Student History & Physical Date & Time of Service: Mar 25, 2016 at 14:07 Chief Complaint: Chest Pain Primary Care Physician: RV. Patterson MD History of Present Illness Source: patient 60y/o female with a history of SVT and diabetes mellitus presents with chest pain that initially began yesterday. The patient began to have periods of heavy pressure-like pain, 4 out of 10 pain, yesterday during periods of exertion, such as getting up out of her seat and walking around the house. This morning, the pain became worse with exertion, rated 9 out of 10. These periods of chest pain lasted about one minute and occurred with exertion. In addition to the chest pain, the patient has also been having shortness of breath in recent days. She has been using her prn inhaler more often. The patient states that she has had a cough for several weeks now. In addition to the chest pain, the patient has been having periods of palpitations that she describes as similar to the episodes of SVT that she had last month. The palpitations began yesterday and continued on and off into today. The patient was admitted 02/29/16 for SVTs. She had a one night stay in the hospital and Diltiazem was added to her medication list at that time. Additionally, her albuterol inhaler and nebulizer treatments were discontinued. She states that she had one previous episode of SVT that occurred prior to her previous admission. According to the patient, her last stress test was a little over a year ago and showed no abnormality. Since the hospitalization, she did not have any problems with palpitations or chest pain until the past few days. Past Medical/Surgical History Medical Problems: (1) Pulmonary Embolism 2. Asthma 3. Diabetes Mellitus type II 4. Kidney Stones 5. SVT 6. Chronic back pain Surgical history 1. Cholecystectomy 2. Hysterectomy 3. Bilateral knee replacements 4. right shoulder surgery 5. Bilateral carpal tunnel release Family History Diabetes Mellitus type II, Hypertension, Hypothyroid Social History Smoking Status: Former Smoker (quit 37 years ago) Alcohol Use: occasionally Drug Use: none, marijuana Marital Status: Housing status: lives with family Occupational Status: disabled Immunizations History of Influenza Vaccine: Yes Influenza Vaccine Date: Nov 26, 2014 History of Tetanus Vaccine?: No History of Pneumococcal: Yes Pneumococcal Date: Mar 29, 2013 History of Hepatitis B Vaccine: No Allergies Coded Allergies: Tetanus Toxoid (Verified Allergy, Unknown, ARM SWELLING ITCHY, 03/25/16) Medications Acetaminophen (Tylenol), 4 TABS PO TID PRN for Headache or Pain Aspirin (Aspirin Ec), 81 MG PO DAILY Atorvastatin (Lipitor), 10 MG PO QPM Benzonatate (Tessalon Perles), 100 MG PO TID PRN for UD Cetirizine (Zyrtec), 10 MG PO QAM Cholecalciferol (Vitamin D3), 2,000 UNITS PO QAM Cyanocobalamin (Vitamin B12), 1,000 MCG PO QPM Diltiazem Hcl Coated Beads (Cardizem Cd), 1 CAP PO DAILY Enalapril Maleate (Vasotec), 2.5 MG PO QPM Furosemide (Lasix), 80 MG PO DAILY Hydrocodone/Homatropine (Hydromet), 5 ML PO HS Hydroxyzine Hcl (Atarax), 10 MG PO BID Insulin Glargine (Lantus), 90 UNITS SC QAM Insulin Lispro (Human) (Humalog) Levalbuterol Tartrate (Levalbuterol Tartrate Hfa), 2 PUFFS INH Q6H PRN for Wheezing Lidocaine (Aspercreme W/Lidocaine), 1 APPLN TOP PRN UD Liraglutide (Victoza), 1.8 MCG SQ QPM Metformin Hcl (Glucophage), 1,000 MG PO BIDM Mometasone Furoate-Formoterol (Dulera 200/5 Mcg), 2 PUFFS INH BID Montelukast Sodium (Singulair), 10 MG PO HS Nystatin-Triamcinolone (Nystatin/Triamcinolone), 1 APPLN TOP BID PRN for Ondansetron Hcl (Zofran), 4 MG PO Potassium Citrate (Alkalinizer (Potassium Citrate ER), 10 MEQ PO BID Ranitidine (Zantac), 150 MG PO Q12 Tramadol (Ultram), 50 MG PO QPM PRN for Pain Review of Systems Constitutional: + chills, + fatigue, No fever, No weight loss Eyes: No discharge, No redness, No worsening of vision ENT: No hearing loss, No nasal symptoms, No sore throat Respiratory: + cough (dry), + dyspnea on exertion, + shortness of breath, No dyspnea at rest, No wheezing Cardiovascular: + chest pain, No edema, No palpitations Abdomen: No constipation, No diarrhea, No nausea, No pain, No vomiting Musculoskeletal: No calf pain, No swelling Neurologic: No memory loss, No numbness/tingling, No paralysis Psychiatric: No anxiety, No depression symptoms, No substance abuse Integumentary: No itch, No new/changing skin lesions, No rash Physical Exam Vital Signs (24 Hours) Date Time Temp Pulse Resp B/P Pulse Ox O2 Delivery O2 Flow Rate FiO2 03/25/16 13:39 94 18 03/25/16 13:34 91 18 03/25/16 13:29 97 25 03/25/16 13:24 102 19 03/25/16 13:19 95 13 03/25/16 13:14 93 13 03/25/16 13:09 99 13 03/25/16 13:04 91 22 03/25/16 12:59 93 26 03/25/16 12:54 93 27 03/25/16 12:49 94 15 03/25/16 12:44 95 15 03/25/16 12:39 91 17 03/25/16 12:34 95 25 03/25/16 12:29 93 22 03/25/16 12:24 92 23 03/25/16 12:19 91 21 03/25/16 12:14 102 17 03/25/16 12:09 94 23 03/25/16 12:08 98 03/25/16 12:06 97 Room Air 03/25/16 12:05 36.6 96 18 138/69 97 Room Air 03/25/16 12:05 97 Room Air 03/25/16 12:04 97 33 03/25/16 11:59 101 22 03/25/16 11:54 105 29 03/25/16 11:44 97 14 03/25/16 11:39 95 19 03/25/16 11:21 36.6 96 18 138/69 97 Room Air General Appearance: WD/WN, no apparent distress, + obese Head: normocephalic, atraumatic Eyes: normal inspection, EOMI ENT: normal ENT inspection, hearing grossly normal Respiratory/Chest: chest non-tender, lungs clear, normal breath sounds, no respiratory distress Cardiovascular: no edema, no gallop, no murmur, normal peripheral pulses, + tachycardia Abdomen/GI: normal bowel sounds, non tender, soft Back: normal inspection, no CVA tenderness Extremities/Musculoskelatal: no pedal edema, normal range of motion 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: alert, normal mood/affect, oriented x 3 Skin: normal color, warm/dry, no rash Diagnostics Laboratory Results Results Past 24 Hours Test 03/25/16 12:40 03/25/16 12:53 Range/Units White Blood Count 9.94 4.8-10.8 K/uL Red Blood Count 4.94 4.2-5.4 M/uL Hemoglobin 11.3 12.0-16.0 g/dL Hematocrit 35.9 37-47 % Mean Corpuscular Volume 72.7 80-100 fL Mean Corpuscular Hemoglobin 22.9 25-34 pg Mean Corpuscular Hemoglobin Concent 31.5 32-36 g/dl RDW Standard Deviation 45.7 36.4-46.3 fL RDW Coefficient of Variation 17.2 11.5-14.5 % Platelet Count 251 130-400 K/uL Mean Platelet Volume 9.8 7.4-10.4 fL Prothrombin Time 10.4 9.0-12.0 SECONDS Prothromb Time International Ratio 1.0 0.9-1.1 Activated Partial Thromboplast Time 27.6 21.0-31.0 SECONDS Partial Thromboplastin Ratio 1.1 Sodium Level 139 136-145 mmol/L Potassium Level 3.7 3.5-5.1 mmol/L Chloride Level 102 98-107 mmol/L Carbon Dioxide Level 24 21-32 mmol/L Anion Gap 13.0 3-11 mmol/L Blood Urea Nitrogen 5 7-18 mg/dl Creatinine 0.66 0.60-1.20 mg/dl Estimated GFR () 112.9 Estimated GFR (Non- 97.4 BUN/Creatinine Ratio 8.3 10-20 Random Glucose 140 70-99 mg/dl Calcium Level 8.9 8.5-10.1 mg/dl Total Bilirubin 0.2 0.2-1 mg/dl Aspartate Amino Transf (AST/SGOT) 11 15-37 U/L Alanine Aminotransferase (ALT/SGPT) 22 12-78 U/L Alkaline Phosphatase 67 45-117 U/L Total Creatine Kinase 90 26-192 U/L Creatine Kinase MB 1.2 0.5-3.6 ng/ml Creatine Kinase MB Ratio 1.3 0-3.0 Total Protein 7.5 6.4-8.2 gm/dl Albumin 3.2 3.4-5.0 gm/dl Globulin 4.3 2.5-4.0 gm/dl Albumin/Globulin Ratio 0.7 0.9-2 Bedside Troponin I 0.000 0-0.045 ng/ml Diagnostic Radiology CXR: IMPRESSION: Chronic and postoperative change. No acute process. EKG New T wave inversion in anterior leads when compared to previous ecg Impression Assessment and Plan 60y/o female with history of SVTs presenting with chest pain, palpitations, and shortness of breath. Differential diagnosis includes SVTs, unstable angina, angina, NSTEMI, PE, PNA, viral URI, influenza, aortic dissection, COPD/asthma exacerbation, and costochondritis. ECG did not show SVT. WIll continue to monitor and consult cardiology. History of SVTs/Chest pain - Consult cardiology. Continue to monitor patients vitals and labs. Serial cardiac enzymes and repeat ecgs. Echo ordered. Consider performing stress test. Administer Diltiazem 1 cap PO daily. Continue to administer ASA 81 mg PO daily, Atorvastatin Calcium 10mg tab PO QPM. NTG as needed for chest pain. Diabetes Mellitus type II- Administer sliding scale insulin. Administer metformin 1000 mg tab and Liraglutide 18mg/3ml injection. Continue to monitor patient's blood glucose level. Hypertension- Administer Enalapril Maleate 2.5mg PO Qpm. Administer Furosemide 80mg PO daily. GERD- Administer Ranitidine 150mg Tab. Odanesetron HCl 4mg tab prn for nausea. Asthma- Administer Levalbuterol tartrate 2puffs INH PRN and Mometasone Furoate- Formeterol 2 puffs INH BID. Oxygen administered by nasal canula. Chronic back pain- Continue to administer tramadol 50 mg tab PRN. Morphine as needed for pain. Microcytic anemia- Patient's hemoglobin is low, but remains stable from previous lab values. The patient's MCV is low. Consider drawing iron study panel to further look into the etiology of the patient's anemia. Vitamin replacement- Administer home doses of Vit D3 and Vit B12.
--- NOTE | 2016-03-25 16:04 | EMERGENCY ROOM VISIT NOTE ---
History Report prepared by Rashida: Misti Snyder Under the Supervision of: Dr. Suraj Mota M.D. First contact with patient: 12:12 Chief Complaint: CHEST PAIN Stated Complaint: CHEST PAINS, SHAKING HANDS Nursing Triage Summary: see triage note History of Present Illness The patient is a 60 year old female who presents to the Emergency Room with complaints of resolved chest pain that occurred this morning. She described the chest pain as heavy pressure. The pain lasted for about one minute. Nothing seemed to make the pain better or worse. She also felt like she was going to experience syncope when she had the pain. The patient states that she has been experiencing intermittent palpitations since yesterday morning, but this morning the palpitations were worse than usual. She is also experiencing shortness of breath, but she used her emergency inhaler on her way into the ED. The patient has not been using her inhaler a lot recently. She is also experiencing chills, but denies nausea, vomiting, bowel or bladder problems, lower extremity pain or edema, and recent weight loss or gain. She states that she follows with Dr. Broussard - Cardiology and adds that she has an appointment with him tomorrow. The patient was seen in the ED about one month ago for SVT. An ultrasound of her heart on 03/01 showed that her ejection fraction was normal. The patient wore a heart monitor on 03/11 and 03/12. At her follow-up with Dr. Broussard tomorrow they were going to discuss treatment plans. The patient is diabetic and states that her sugars have been normal recently. The patient has not had any recent stress tests or heart catheterizations. She adds that she has been experiencing an occasional cough over the last three weeks. The patient had a pulmonary embolism over a year ago. She is not on any blood thinners. Source of History: patient, family Onset: this morning Position: chest Quality: pressure (heavy) Timing: resolved Modifying Factors (Worsening): other (None) Modifying Factors (Relieving): other (None) Associated Symptoms: + SOB, + chills, No nausea, No vomiting Note: palpitations, no bowel or bladder problems, no lower extremity pain or edema, no recent weight loss or gain Review of Systems See HPI for pertinent positives & negatives. A total of 10 systems reviewed and were otherwise negative. Past Medical & Surgical Medical Problems: (1) Asthma (2) Calculus Of Kidney (3) Cholecystectomy (4) Chronic obstructive lung disease (5) Diabetes mellitus (6) Hysterectomy (7) Left arm numbness (8) Rotator cuff arthropathy (9) Shortness of breath (10) Sleep apnea (11) SVT (supraventricular tachycardia) Old medical records were reviewed. Nurse's notes were reviewed and I agree with. Family History Diabetes mellitus Hypertension Kidney stones Social History Smoking Status: Never Smoker Alcohol Use: none Drug Use: none, marijuana Marital Status: Housing Status: lives with family Occupation Status: disabled Current/Historical Medications Scheduled Aspirin (Aspirin Ec), 81 MG PO DAILY Atorvastatin (Lipitor), 10 MG PO QPM Cetirizine (Zyrtec), 10 MG PO QAM Cholecalciferol (Vitamin D3), 2,000 UNITS PO QAM Cyanocobalamin (Vitamin B12), 1,000 MCG PO QPM Diltiazem Hcl Coated Beads (Cardizem Cd), 1 CAP PO DAILY Enalapril Maleate (Vasotec), 2.5 MG PO QPM Furosemide (Lasix), 80 MG PO DAILY Hydrocodone/Homatropine (Hydromet), 5 ML PO HS Hydroxyzine Hcl (Atarax), 10 MG PO BID Insulin Glargine (Lantus), 90 UNITS SC QAM Lidocaine (Aspercreme W/Lidocaine), 1 APPLN TOP PRN UD Liraglutide (Victoza), 1.8 MCG SQ QPM Metformin Hcl (Glucophage), 1,000 MG PO BIDM Mometasone Furoate-Formoterol (Dulera 200/5 Mcg), 2 PUFFS INH BID Montelukast Sodium (Singulair), 10 MG PO HS Potassium Citrate (Alkalinizer (Potassium Citrate ER), 10 MEQ PO BID Ranitidine (Zantac), 150 MG PO Q12 Scheduled PRN Acetaminophen (Tylenol), 4 TABS PO TID PRN for Headache or Pain Benzonatate (Tessalon Perles), 100 MG PO TID PRN for UD Levalbuterol Tartrate (Levalbuterol Tartrate Hfa), 2 PUFFS INH Q6H PRN for Wheezing Nystatin-Triamcinolone (Nystatin/Triamcinolone), 1 APPLN TOP BID PRN for Tramadol (Ultram), 50 MG PO QPM PRN for Pain Miscellaneous Medications Insulin Lispro (Human) (Humalog) Ondansetron Hcl (Zofran), 4 MG PO Allergies Coded Allergies: Tetanus Toxoid (Verified Allergy, Unknown, ARM SWELLING ITCHY, 03/25/16) Physical Exam Vital Signs Date Time Temp Pulse Resp B/P Pulse Ox O2 Delivery O2 Flow Rate FiO2 03/25/16 18:12 36.6 96 16 138/69 97 03/25/16 16:43 96 03/25/16 16:29 92 16 03/25/16 16:24 103 19 03/25/16 16:19 104 18 03/25/16 16:14 105 18 03/25/16 15:54 98 23 03/25/16 15:49 125 20 03/25/16 15:44 100 15 03/25/16 15:39 96 22 03/25/16 15:34 101 24 03/25/16 15:29 104 17 03/25/16 15:24 107 25 03/25/16 15:19 94 19 03/25/16 15:14 92 27 03/25/16 15:09 96 27 03/25/16 15:04 100 17 03/25/16 14:59 99 26 03/25/16 14:54 90 22 03/25/16 14:49 97 22 03/25/16 14:44 102 30 03/25/16 14:39 94 17 03/25/16 14:34 105 28 03/25/16 14:29 94 18 03/25/16 14:24 94 23 03/25/16 14:19 97 Room Air 03/25/16 14:19 100 36 03/25/16 14:14 100 21 03/25/16 14:09 107 13 03/25/16 14:04 108 18 03/25/16 13:59 98 17 03/25/16 13:54 100 20 03/25/16 13:49 91 16 03/25/16 13:44 95 27 03/25/16 13:39 94 18 03/25/16 13:34 91 18 03/25/16 13:29 97 25 03/25/16 13:24 102 19 03/25/16 13:19 95 13 03/25/16 13:14 93 13 03/25/16 13:09 99 13 03/25/16 13:04 91 22 03/25/16 12:59 93 26 03/25/16 12:54 93 27 03/25/16 12:49 94 15 03/25/16 12:44 95 15 03/25/16 12:39 91 17 03/25/16 12:34 95 25 03/25/16 12:29 93 22 03/25/16 12:24 92 23 03/25/16 12:19 91 21 03/25/16 12:14 102 17 03/25/16 12:09 94 23 03/25/16 12:08 98 03/25/16 12:06 97 Room Air 03/25/16 12:05 36.6 96 18 138/69 97 Room Air 03/25/16 12:05 97 Room Air 03/25/16 12:04 97 33 03/25/16 11:59 101 22 03/25/16 11:54 105 29 03/25/16 11:44 97 14 03/25/16 11:39 95 19 03/25/16 11:21 36.6 96 18 138/69 97 Room Air Physical Exam General: Well developed well nourished non-ill appearing middle-aged female in no acute distress, breathing comfortably on room air. Normal speech HEENT: Normal cephalic atraumatic. Pupils are equal round and reactive to light. Extraocular movements are intact. Oropharynx is pink with moist mucous membranes. No swelling of the mouth lips or tongue. Neck: Supple with a midline trachea. No meningeal signs or stiffness, no JVD or bruits. No Stridor. Chest: Clear to auscultation bilaterally. No wheezes or rhonchi. No increased work of breathing. Heart: regular rate and rhythm. Abdomen: Soft nontender, nondistended without rebound guarding or rigidity. Extremities: Trace pedal edema bilaterally. No cyanosis or clubbing. No calf tenderness or assymetry Spine/Back. Non tender to palpation. No CVA tenderness Skin: Good turgor without rashes. Neurologic exam: Cranial nerves two through 12 are intact. Motor and sensation are intact and symmetrical throughout. Medical Decision & Procedures ER Provider Diagnostic Interpretation: X-ray results as stated below per interpretation by me and the radiologist: CHEST ONE VIEW PORTABLE IMPRESSION: Chronic and postoperative change. No acute process. Electronically signed by: Artis Koehler M.D. 03/25/2016 12:01 PM Dictated Date/Time: 03/25/2016 12:00 PM Laboratory Results 03/25/16 12:40 03/25/16 12:40 Test 03/25/16 12:40 03/25/16 12:53 03/25/16 17:09 Red Blood Count 4.94 M/uL (4.2-5.4) Mean Corpuscular Volume 72.7 fL (80-100) Mean Corpuscular Hemoglobin 22.9 pg (25-34) Mean Corpuscular Hemoglobin Concent 31.5 g/dl (32-36) RDW Standard Deviation 45.7 fL (36.4-46.3) RDW Coefficient of Variation 17.2 % (11.5-14.5) Mean Platelet Volume 9.8 fL (7.4-10.4) Prothrombin Time 10.4 SECONDS (9.0-12.0) Prothromb Time International Ratio 1.0 (0.9-1.1) Activated Partial Thromboplast Time 27.6 SECONDS (21.0-31.0) Partial Thromboplastin Ratio 1.1 Anion Gap 13.0 mmol/L (3-11) Estimated GFR () 112.9 Estimated GFR (Non- 97.4 BUN/Creatinine Ratio 8.3 (10-20) Calcium Level 8.9 mg/dl (8.5-10.1) Total Bilirubin 0.2 mg/dl (0.2-1) Aspartate Amino Transf (AST/SGOT) 11 U/L (15-37) Alanine Aminotransferase (ALT/SGPT) 22 U/L (12-78) Alkaline Phosphatase 67 U/L (45-117) Total Protein 7.5 gm/dl (6.4-8.2) Albumin 3.2 gm/dl (3.4-5.0) Globulin 4.3 gm/dl (2.5-4.0) Albumin/Globulin Ratio 0.7 (0.9-2) Bedside Troponin I 0.000 ng/ml (0-0.045) Total Creatine Kinase 92 U/L (26-192) Creatine Kinase MB 1.2 ng/ml (0.5-3.6) Creatine Kinase MB Ratio 1.3 (0-3.0) Troponin I < 0.015 ng/ml (0-0.045) Laboratory studies as stated above per my review. ECG Indication: chest pain Rate (beats per minute): 90 Rhythm: normal sinus Findings: RBBB, no acute ischemic change Comparison ECG Date: 03/01/2016 Change: no significant change ED Course 1214: Past medical records reviewed. The patient was evaluated in room C12, and a complete history and physical examination were performed. 1252: Upon reevaluation, the patient is resting comfortably. I discussed the results and treatment plan with the patient. She verbalized agreement of the treatment plan. The patient will be evaluated for further management. 1331: I discussed the patient's case with Dr. Rojas - [facility] [place] The patient will be evaluated for further management. 1753: Dr. Rojas informed me that the patient was evaluated by the admitting team and admitted to the hospital, but she has decided that she would like to go home instead. Dr. Rojas discussed the patient's case with Dr. Broussard and feels that she is well enough to go home. She is going to follow- up with Dr. Broussard in the morning. 1758: Upon reevaluation, the patient is doing well. I discussed the treatment plan with her. She verbalized agreement of the treatment plan. The patient was discharged home. Medical Decision Differentials include, but are not limited to; SVT, palpitations, acute coronary syndrome, pulmonary disease, electrolyte or metabolic abnormality. This patient comes in as described above. She was placed in room C 12. She's been having palpitations as well as chest pressure since yesterday. She feels good at present. She was recently admitted for similar complaints and had a SVT. She's been followed Dr. Lopez and recently had a Holter monitor. She schedule see him tomorrow for further treatment and evaluation results. She looks well at present. EKG shows a bundle branch block but no ischemic changes or significant ectopy. Chest x-ray is unremarkable does not so congestive heart failure. Her cardiac enzymes are not elevated thus far she has no acute electrolyte or metabolic abnormalities. She has remained stable. I did consult the hospitalist group for admission for further treatment and evaluation she has not had a recent stress test or cath and I think what we'll need further cardiac evaluation. They did see her admission orders. While she was in the ER she became frustrated and just wanted to leave as she was waiting a bed to go upstairs. Dr. Fontenot did talk to her again and she declines admission. She does have an appointment with Dr. Lopez in the morning and will keep this. She will return if: increasing pain, worsening of symptoms, fever or chills, any new problems or concerns. Consults Time Called: 1300 Consulting Physician: Dr. Crystal ALLEN Returned Call: 1331 I discussed the patient's case with Dr. Crystal ALLEN. The patient will be evaluated for further management. Impression Primary Impression: Precordial chest pain Additional Impression: Palpitations Scribe Attestation The scribe's documentation has been prepared under my direction and personally reviewed by me in its entirety. I confirm that the note above accurately reflects all work, treatment, procedures, and medical decision making performed by me. Departure Information Dispostion Home / Self-Care Referrals RV. Patterson MD (PCP) Forms HOME CARE DOCUMENTATION FORM, IMPORTANT VISIT INFORMATION Patient Instructions My [facility] [employer] Additional Instructions Rest Return if:Worsening of symptoms, chest pain, shortness breath, lightheadedness, dizziness, any new problems concerns Follow-up with Dr. Zhang tomorrow for recheck Problem Qualifiers
[2016-03-25] MEDS ORDERED: DiphenhydrAMINE HCL 50 MG/ML VIAL IV PRN (16:15)
[2016-03-25] MEDS ORDERED: MoRPHine SULFATE 2 MG/ML CARP IV PRN (16:15)
[2016-03-25] MEDS ORDERED: LEValbuterol HFA 15GM INHALER INH PRN (16:15)
[2016-03-25] MEDS ORDERED: PROMETHAZINE HCL INJ 12.5 MG in SODIUM CHLORIDE 0.9% 50ML 50 ML IV PRN (16:15)
[2016-03-25] MEDS ORDERED: MAGNESIUM HYDROXIDE SUSP 30 ML UDC PO PRN (16:15)
[2016-03-25] MEDS ORDERED: LIDOCAINE 4% CREAM 15 GM TUBE EXT PRN (16:15)
[2016-03-25] MEDS ORDERED: LORAZEPAM 2 MG/ML 1 ML VIAL IV PRN (16:15)
[2016-03-25] MEDS ORDERED: TRAMADOL HCL 50 MG TAB PO PRN (16:15)
[2016-03-25] MEDS ORDERED: ACETAMINOPHEN 325 MG TAB PO PRN (16:15)
[2016-03-25] MEDS ORDERED: NYSTATIN/TRIAMCINOLONE CR 15 GM TUBE EXT PRN (16:15)
[2016-03-25] MEDS ORDERED: ALUMINUM/MAGNESIUM/SIMETH (MAALOX MAX) 30 ML UDC PO PRN (16:15)
[2016-03-25] MEDS ORDERED: MoRPHine SULFATE 4 MG/ML 1 ML CARP\\VIAL IV PRN (16:15)
[2016-03-25] MEDS ORDERED: BENZONATATE 100MG CAP PO PRN (16:15)
[2016-03-25] MEDS ORDERED: ZOLPIDEM TARTRATE 5 MG TAB PO PRN (16:15)
[2016-03-25] MEDS ORDERED: NITROGLYCERIN 0.4 MG SL PER TAB CHARGE SL PRN (16:15)
[2016-03-25] MEDS ORDERED: ONDANSETRON INJ 2 MG/ML 2 ML VIAL IV PRN (16:15)
[2016-03-25] MEDS ORDERED: GLUCOSE 10 TABS/TUBE PO PRN (16:30)
[2016-03-25] MEDS ORDERED: DEXTROSE 50% 50 ML SYR IV PRN (16:30)
[2016-03-25] MEDS ORDERED: GLUCAGON FOR INJ 1 MG VIAL SQ PRN (16:30)
[2016-03-25] MEDS ORDERED: GLUCOSE 40% GEL 15 GM TUBE PO PRN (16:30)
[2016-03-25] MEDS ORDERED: hydrOXYzine HCL 10 MG TAB PO SCH (17:00)
[2016-03-25 17:51] LABS: CKMB/CK RATIO 1.3 (0-3.0)
[2016-03-25 18:12] VITALS: BP 138/69; PULSE 96; TEMP 36.6; O2SAT 97
[2016-03-25] MEDS ORDERED: DILTIAZEM HCL 180 MG CAPCR PO SCH (21:00)
[2016-03-25] MEDS ORDERED: ENALAPRIL MALEATE 5 MG TAB PO SCH (21:00)
[2016-03-25] MEDS ORDERED: MONTELUKAST SOD 10 MG TAB PO SCH (21:00)
[2016-03-25] MEDS ORDERED: INSULIN ASPART 100 UNITS/ML 3 ML PEN SC SCH (21:00)
[2016-03-25] MEDS ORDERED: DOCUSATE SODIUM 100 MG CAP PO SCH (21:00)
[2016-03-25] MEDS ORDERED: POTASSIUM CITRATE 10 MEQ TAB PO SCH (21:00)
[2016-03-25] MEDS ORDERED: HYDROCODONE/HOMATROPINE SYRUP 5MG/1.5MG 5ML UDP PO SCH (21:00)
[2016-03-25] MEDS ORDERED: RANITIDINE HCL 150 MG TAB PO SCH (21:00)
[2016-03-25] MEDS ORDERED: ATORVASTATIN 10 MG TAB PO SCH (21:00)
[2016-03-25] MEDS ORDERED: LIDO16CR TOP (21:20)
[2016-03-25] MEDS ORDERED: HMLI SC (21:20)
--- NOTE | 2016-03-25 21:23 | Medical Consult ---
Consultation Date of Consultation: Mar 25, 2016. Attending Physician: Reason for Consultation: Assessment for possible admission from the ED. History of Present Illness The patient is a 52-year-old female with history of SVT, followed by Dr. Broussard, from cardiology, with a follow-up office visit due to tomorrow, who developed an episode of palpitations with chest discomfort and shortness of breath earlier in the day that has since resolved. She was most recently in hospital on February 28, and at that time had diltiazem added to her regimen, which she takes around 9 AM. This is the first time she has had any recurrent symptoms since being on diltiazem. She did have a stress test done on February 25. Past Medical/Surgical History Medical Problems: (1) Abdominal pain Status: Acute (2) Acute chest pain Status: Acute (3) Asthma exacerbation Status: Acute (4) Asthma exacerbation Status: Acute (5) Bronchitis Status: Acute (6) Constipation Status: Acute (7) Dehydration Status: Acute (8) Finger pain, right Status: Acute (9) Heart palpitations Status: Acute (10) Hip pain, left Status: Acute (11) History of COPD Status: Acute (12) History of pulmonary embolism Status: Acute (13) Hypoxia Status: Acute (14) Left-sided chest wall pain Status: Acute (15) Palpitations Status: Acute (16) Pneumonia Status: Acute (17) Postoperative pain Status: Acute (18) Precordial chest pain Status: Acute (19) Shortness of breath Status: Acute (20) Tachycardia Status: Acute (21) Toe infection Status: Acute (22) Unstable angina Status: Acute (23) Vomiting Status: Acute Family History Diabetes mellitus Hypertension Kidney stones Social History Smoking Status: Never Smoker Smokeless Tobacco Use: No Alcohol Use: none Drug Use: none, marijuana Marital Status: Housing Status: lives with family Occupation Status: disabled Allergies Coded Allergies: Tetanus Toxoid (Verified Allergy, Unknown, ARM SWELLING ITCHY, 03/25/16) Review of Systems The patient denies vision change, hearing change, sore throat, sweats, weight change, fatigue, nausea, vomiting, abdominal pain, pelvic pain, blood in urine or stool, dysuria, urinary frequency or urgency, lightheadedness, dizziness, headache, memory loss, rash, abnormal bruising or bleeding, imbalance, focal weakness, night sweats, or allergy symptoms. The review of systems is otherwise negative other than for that already noted above, and at least 10 systems have been reviewed. Physical Exam Date Time Temp Pulse Resp B/P Pulse Ox O2 Delivery O2 Flow Rate FiO2 03/25/16 18:12 36.6 96 16 138/69 97 03/25/16 16:43 96 03/25/16 16:29 92 16 03/25/16 16:24 103 19 03/25/16 16:19 104 18 03/25/16 16:14 105 18 03/25/16 15:54 98 23 03/25/16 15:49 125 20 03/25/16 15:44 100 15 03/25/16 15:39 96 22 03/25/16 15:34 101 24 03/25/16 15:29 104 17 03/25/16 15:24 107 25 03/25/16 15:19 94 19 03/25/16 15:14 92 27 03/25/16 15:09 96 27 03/25/16 15:04 100 17 03/25/16 14:59 99 26 03/25/16 14:54 90 22 03/25/16 14:49 97 22 03/25/16 14:44 102 30 03/25/16 14:39 94 17 03/25/16 14:34 105 28 03/25/16 14:29 94 18 03/25/16 14:24 94 23 03/25/16 14:19 97 Room Air 03/25/16 14:19 100 36 03/25/16 14:14 100 21 03/25/16 14:09 107 13 03/25/16 14:04 108 18 03/25/16 13:59 98 17 03/25/16 13:54 100 20 03/25/16 13:49 91 16 03/25/16 13:44 95 27 03/25/16 13:39 94 18 03/25/16 13:34 91 18 03/25/16 13:29 97 25 03/25/16 13:24 102 19 03/25/16 13:19 95 13 03/25/16 13:14 93 13 03/25/16 13:09 99 13 03/25/16 13:04 91 22 03/25/16 12:59 93 26 03/25/16 12:54 93 27 03/25/16 12:49 94 15 03/25/16 12:44 95 15 03/25/16 12:39 91 17 03/25/16 12:34 95 25 03/25/16 12:29 93 22 03/25/16 12:24 92 23 03/25/16 12:19 91 21 03/25/16 12:14 102 17 03/25/16 12:09 94 23 03/25/16 12:08 98 03/25/16 12:06 97 Room Air 03/25/16 12:05 36.6 96 18 138/69 97 Room Air 03/25/16 12:05 97 Room Air 03/25/16 12:04 97 33 03/25/16 11:59 101 22 03/25/16 11:54 105 29 03/25/16 11:44 97 14 03/25/16 11:39 95 19 03/25/16 11:21 36.6 96 18 138/69 97 Room Air The patient is awake, alert and oriented 3, normocephalic and atraumatic, morbidly obese, lying in bed and in no acute distress. HEENT--PERRL, EOMI, mucous membranes and oropharynx dry. Neck--supple, no JVD or bruits, thyroid normal, trachea midline, no adenopathy. Heart--normal S1 and S2, no extra beats, no murmurs, rubs or gallops. Lungs--clear bilaterally with good air movement, no respiratory distress, no accessory muscle use. Abdomen--normal bowel sounds and soft, nontender and nondistended, no hernias or masses, no organomegaly. Extremities--no cyanosis, clubbing. There is bilaterally 1+ pitting edema. There are good distal pulses b/l. Dermatologic--normal skin turgor, normal color, warm and dry, no abnormal lymph nodes, no rash. Neurologic--cranial nerves II through XII grossly intact. Rheumatologic--decreased range of motion due to body habitus. Psychiatric--normal affect. Laboratory Results Last 24 Hours Test 03/25/16 12:40 03/25/16 12:53 03/25/16 17:09 White Blood Count 9.94 K/uL Red Blood Count 4.94 M/uL Hemoglobin 11.3 g/dL Hematocrit 35.9 % Mean Corpuscular Volume 72.7 fL Mean Corpuscular Hemoglobin 22.9 pg Mean Corpuscular Hemoglobin Concent 31.5 g/dl RDW Standard Deviation 45.7 fL RDW Coefficient of Variation 17.2 % Platelet Count 251 K/uL Mean Platelet Volume 9.8 fL Prothrombin Time 10.4 SECONDS Prothromb Time International Ratio 1.0 Activated Partial Thromboplast Time 27.6 SECONDS Partial Thromboplastin Ratio 1.1 Sodium Level 139 mmol/L Potassium Level 3.7 mmol/L Chloride Level 102 mmol/L Carbon Dioxide Level 24 mmol/L Anion Gap 13.0 mmol/L Blood Urea Nitrogen 5 mg/dl Creatinine 0.66 mg/dl Estimated GFR () 112.9 Estimated GFR (Non- 97.4 BUN/Creatinine Ratio 8.3 Random Glucose 140 mg/dl Calcium Level 8.9 mg/dl Total Bilirubin 0.2 mg/dl Aspartate Amino Transf (AST/SGOT) 11 U/L Alanine Aminotransferase (ALT/SGPT) 22 U/L Alkaline Phosphatase 67 U/L Total Creatine Kinase 90 U/L 92 U/L Creatine Kinase MB 1.2 ng/ml 1.2 ng/ml Creatine Kinase MB Ratio 1.3 1.3 Total Protein 7.5 gm/dl Albumin 3.2 gm/dl Globulin 4.3 gm/dl Albumin/Globulin Ratio 0.7 Bedside Troponin I 0.000 ng/ml Troponin I < 0.015 ng/ml Assessment & Plan History of SVT, with follow-up appointment with her registry np For tomorrow. We'll continue aspirin 81 mg by mouth daily, enalapril 2.5 mg by mouth every afternoon, furosemide 80 mg by mouth daily, potassium citrate 10 mEq by mouth twice a day and diltiazem extended release 180 mg by mouth every morning. She and her daughter were told that if her heart rate went up high again overnight, that she could take an additional Cardizem CD 180 mg. Diabetes mellitus--continue current dosing of Lantus 90 units subcutaneous every morning and Humalog per scale, metformin 1000 mg by mouth twice a day , and Victoza subcutaneous every evening. Hypercholesterolemia--continue atorvastatin 10 mg by mouth every evening. COPD continue Singulair 10 mg by mouth daily at bedtime, levalbuterol HFA 2 puffs every 6 hours when necessary, and Dulera 2 puffs twice a day. All of the medications will be continued as before. Recommendation is for the patient to go home as above, and follow up with her registry np Dr. Broussard in the AM, but to return to the emergency department sooner should she have any recurrent symptoms. Dr. Broussard is aware of her visit tonight and is again agreement with the plan.
[2016-03-26] MEDS ORDERED: CETIRIZINE HCL 10 MG TAB PO SCH (09:00)
[2016-03-26] MEDS ORDERED: CYANOCOBALAMIN 100 MCG TAB (VIT B-12) PO SCH (09:00)
[2016-03-26] MEDS ORDERED: INSULIN GLARGINE SOLOSTAR 100 UNITS/ML 3 ML PEN SC SCH (09:00)
[2016-03-26] MEDS ORDERED: ASPIRIN 81 MG ECTAB PO SCH (09:00)
[2016-03-26] MEDS ORDERED: FUROSEMIDE 40 MG TAB PO SCH (09:00)
[2016-03-26] MEDS ORDERED: NON-FORMULARY MEDICATION (Cholecalciferol (Vitamin D3) 2,000 UNITS) PO SCH (09:00)
[2016-06-23] MEDS ORDERED: BENZ100C84 PO (11:56)
[2016-06-23] MEDS ORDERED: HYDR0.75 PO (11:56)
[2016-06-23] MEDS ORDERED: ONDA4TAB46 PO (12:01)
[2016-06-23] MEDS ORDERED: MONT1TAB3 PO (16:13)
[2016-08-24] MEDS ORDERED: POTA1080 PO (10:03)
[2016-08-24] MEDS ORDERED: METF-384 PO (10:03)
[2016-08-24] MEDS ORDERED: INSU100I SC (12:01)
[2016-08-24] MEDS ORDERED: INSDGI SC (12:01)
== END 2016-03-25 18:00 | disposition home or self-care (01) ==
LOC: ENRESERVTM → ENRESERVDT → CANRESERV → C.EDB 11:16 → CANBEDREQ 17:59 → C.EDC 18:00
DX: R07.2 Precordial pain (principal); R00.2 Palpitations; J45.909 Unspecified asthma, uncomplicated; I47.1 Supraventricular tachycardia; Z87.442 Personal history of urinary calculi; E11.9 Type 2 diabetes mellitus without complications; J44.9 Chronic obstructive pulmonary disease, unspecified; Z86.711 Personal history of pulmonary embolism; G47.30 Sleep apnea, unspecified; Z83.3 Family history of diabetes mellitus; Z82.49 Family history of ischemic heart disease and other diseases of the circulatory system; Z84.1 Family history of disorders of kidney and ureter; Z79.82 Long term (current) use of aspirin; Z79.4 Long term (current) use of insulin; Z79.899 Other long term (current) drug therapy

== ENCOUNTER → 2016-03-27 | Outpatient (CLI) | payer OTHER ==
[~2016-03-27] MED LIST changes: +ACET-1311 PO; +ASPI-461 PO; +ASPI81TA28 PO; +ATOR10TA88 PO; +ATR10 PO; +BENZ100C84 PO; +CETI10TA84 PO; +CHOL2000 PO; +CHOL20005 PO; +CYAN100020 PO; +CYAN10004 PO; +DILT180C PO; +DLTCD/240 PO; +ENAL1TAB29 PO; +ENAL2.5T PO; +FERR325T PO; +FRS/40 PO; +HOME1TAB18 PO; +HYDR-389 PO; +HYDR0.75 PO; +INSU100I SC; +LIDO16CR TOP; +LIRA18IN SQ; +METF-384 PO; +MOME200A INH; +MONT1TAB3 PO; +NYSTCRE32 TOP; +ONDA4TAB46 PO; +OSEL75CA12 PO; +OXYC1TAB3 PO; +POTA1080 PO; +PRED20TA PO; +RANI300T PO; +RHNAQIN NAE; +SNG10 PO; +TRAM-10 PO; +ZNTT/150 PO
[2016-03-28 05:50] LABS: ESTIMATED AVERAGE GLUCOSE 163 mg/dl; HA1C FLAG Normal (Normal)
== END | disposition home or self-care (01) ==
LOC: C.LAB1850 16:46
PROVIDERS: ATTEND Internal Medicine
DX: E11.8 Type 2 diabetes mellitus with unspecified complications (principal)

== ENCOUNTER 2016-03-30 10:55 | Emergency (ER) | payer OTHER ==
[~2016-03-30] VITALS: Ht 160 cm; Wt 139.0 kg
[~2016-03-30 10:55] MED LIST changes: -ACET-1311 PO; -ASPI-461 PO; -ASPI81TA28 PO; -ATOR10TA88 PO; -ATR10 PO; -BENZ100C84 PO; -CETI10TA84 PO; -CHOL2000 PO; -CHOL20005 PO; -CYAN100020 PO; -CYAN10004 PO; -DILT180C PO; -DLTCD/240 PO; -ENAL1TAB29 PO; -ENAL2.5T PO; -FERR325T PO; -FRS/40 PO; -HOME1TAB18 PO; -HYDR-389 PO; -HYDR0.75 PO; -INSDGI SC; -INSU100I SC; -LIRA18IN SQ; -METF-384 PO; -MOME200A INH; -MONT1TAB3 PO; -NYSTCRE32 TOP; -ONDA4TAB46 PO; -OSEL75CA12 PO; -OXYC1TAB3 PO; -POTA1080 PO; -PRED20TA PO; -RANI300T PO; -RHNAQIN NAE; -SNG10 PO; -TRAM-10 PO; -ZNTT/150 PO
[2016-03-30 10:59] VITALS: TEMP 36.5; Ht 160 cm; Wt 139.0 kg
--- NOTE | 2016-03-30 11:39 | EMERGENCY ROOM VISIT NOTE ---
History First contact with patient: 11:21 Chief Complaint: ILLNESS Stated Complaint: SICK History of Present Illness The patient is a 60 year old female who presents to the Emergency Room via private vehicle with complaints of "sick". The patient states that she's been around many of her family members who have been ill the past 2 weeks and she notes that 6 days ago she began with a cough with mild sputum production that has progressively worsened. She states that she went to see her family doctor on Friday who prescribed her a Z-Keegan and prednisone. She states that since then she has not felt any better and feels she has worsened. She also notes mild shortness of breath but notes that she usually gets this way when she becomes ill. She notes that she likely would feel better if she could use her albuterol inhaler treatments but notes that due to her history of a heart flutter Dr. Reyes told her to not use the albuterol. She notes that the sputum is green in nature. In relation to the trouble breathing, she notes that it is only minor and again notes that she has had this when she has been sick in the past and is not unusual. She denies any chest pain, shortness of breath, abdominal pain. There are no urinary symptoms. Review of Systems A complete 10-point Review of Systems was discussed with the patient, with pertinent positives and negatives listed in the History of Present Illness. All remaining Review of Systems questions can be considered negative unless otherwise specified. Past Medical/Surgical History Medical Problems: (1) Asthma (2) Calculus Of Kidney (3) Cholecystectomy (4) Chronic obstructive lung disease (5) Diabetes mellitus (6) Hysterectomy (7) Left arm numbness (8) Rotator cuff arthropathy (9) Shortness of breath (10) Sleep apnea (11) SVT (supraventricular tachycardia) Family History Diabetes mellitus Hypertension Kidney stones Social History Smoking Status: Former Smoker Alcohol Use: none Drug Use: none, marijuana Marital Status: Housing Status: lives with family Occupation Status: disabled Current/Historical Medications Scheduled Aspirin (Aspirin Ec), 81 MG PO QAM Atorvastatin (Lipitor), 10 MG PO QPM Cetirizine (Zyrtec), 10 MG PO QAM Cholecalciferol (Vitamin D3), 2,000 UNITS PO QAM Cyanocobalamin (Vitamin B12), 1,000 MCG PO QPM Diltiazem Hcl Coated Beads (Cardizem Cd), 1 CAP PO DAILY Enalapril Maleate (Vasotec), 2.5 MG PO QPM Furosemide (Lasix), 80 MG PO QAM Hydroxyzine Hcl (Atarax), 10 MG PO BID Insulin Glargine (Lantus), 80-90 UNITS SC QAM Lidocaine (Aspercreme W/Lidocaine), 1 APPLN TOP PRN UD Liraglutide (Victoza), 1.8 MCG SQ QPM Metformin Hcl (Glucophage), 1,000 MG PO BIDM Mometasone Furoate-Formoterol (Dulera 200/5 Mcg), 2 PUFFS INH BID Montelukast Sodium (Singulair), 10 MG PO HS Oseltamivir (Tamiflu), 75 MG PO BID Potassium Citrate (Alkalinizer (Potassium Citrate ER), 10 MEQ PO BID Ranitidine (Zantac), 150 MG PO Q12 Scheduled PRN Acetaminophen (Tylenol), 4 TABS PO TID PRN for Headache or Pain Benzonatate (Tessalon Perles), 100 MG PO TID PRN for UD Hydrocodone/Homatropine (Hydromet), 5 ML PO HS PRN for PRN Levalbuterol Tartrate (Levalbuterol Tartrate Hfa), 2 PUFFS INH Q6H PRN for Wheezing Nystatin-Triamcinolone (Nystatin/Triamcinolone), 1 APPLN TOP BID PRN for Ondansetron Hcl (Zofran), 4 MG PO Q6 PRN for Nausea Tramadol (Ultram), 50 MG PO QPM PRN for Pain Miscellaneous Medications Insulin Lispro (Human) (Humalog) Allergies Coded Allergies: Tetanus Toxoid (Verified Allergy, Unknown, ARM SWELLING ITCHY, 03/30/16) Physical Exam Vital Signs Date Time Temp Pulse Resp B/P Pulse Ox O2 Delivery O2 Flow Rate FiO2 03/30/16 13:01 100 20 119/69 93 03/30/16 10:59 36.5 96 18 150/87 96 Room Air Physical Exam VITAL SIGNS - Vital signs and nursing notes were reviewed. Patient is afebrile , hypertensive at 150/87, non-tachycardic and is saturating well on room air 96% . GENERAL -60-year-old female appearing her stated age who is in no acute distress. Communicates well with provider and answers questions appropriately. SKIN - Without rashes. HEAD - NC/AT. EYES - PERRL with EOMI bilaterally. Sclera anicteric. Palpebral conjunctiva pink and moist with no injection noted. EARS - No deformities of external structures noted on gross examination bilaterally. No pain elicited with palpation of the tragus bilaterally. External auditory canals without discharge or otorrhea. Tympanic membranes pearly tran without retraction or bulging. No fluid or purulent material visualized behind the TM. Handle of malleus, umbo, cone of light, pars tensa/ flaccid all easily visualized. NOSE - Midline and without cyanosis. No epistaxis or purulent drainage noted. Septum midline without deviation or septal hematoma noted. MOUTH/OROPHARYNX - Without perioral cyanosis. Buccal mucosa pink and moist and without leukoplakia. Tongue midline with equal elevation of palate bilaterally. No tonsillar hypertrophy, erythema, or exudates noted. Good dentition noted. NECK - Neck with FROM. Supple to palpation. No lymphadenopathy noted. No nuchal rigidity. LUNGS - Chest wall symmetric without accessory muscle use, intercostals retractions, or central cyanosis. The lungs are clear with minimal wheezing in the superior portions bilaterally. No rales, or rhonchi appreciated. There is good air exchange. CARDIAC - RRR with S1/S2. No murmur, rubs, or gallops appreciated. ABDOMEN - Abdominal contour without pulsations or visible masses. No tenderness , palpable masses, hepatosplenomegaly, or ascites noted. EXTREMITIES - No clubbing or peripheral cyanosis. NEUROLOGIC - Cranial nerves II through XII grossly intact. Sensory intact to light touch throughout. PSYCH - A&Ox3 and cooperates fully with examiner. Pt is very pleasant and interacts well with examiner. Medical Decision & Procedures ER Provider Diagnostic Interpretation: CHEST 2 VIEWS ROUTINE CLINICAL HISTORY: Cough. COMPARISON STUDY: Chest CT February 29, 2016 and chest radiograph March 25, 2016. FINDINGS: A right shoulder arthroplasty is incidentally noted. Elevation of the right hemidiaphragm is unchanged. Cardiomediastinal silhouette is stable. There is no pneumothorax or pleural effusion. Pulmonary vascularity is normal. The appearance of the chest is unchanged. IMPRESSION: No acute findings. No change in appearance of the chest with stable elevation of the right hemidiaphragm. Electronically signed by: Ángel Garcia M.D. 03/30/2016 12:28 PM Dictated Date/Time: 03/30/2016 12:27 PM Laboratory Results 03/30/16 11:46 Red Blood Count 4.93, Mean Corpuscular Volume 73.2, Mean Corpuscular Hemoglobin 22.9, Mean Corpuscular Hemoglobin Concent 31.3, Mean Platelet Volume 9.8, Neutrophils (%) (Auto) 82.1, Lymphocytes (%) (Auto) 12.3, Monocytes (%) (Auto) 4.8, Eosinophils (%) (Auto) 0.4, Basophils (%) (Auto) 0.2, Neutrophils # (Auto) 7.69, Lymphocytes # (Auto) 1.15, Monocytes # (Auto) 0.45, Eosinophils # (Auto) 0.04, Basophils # (Auto) 0.02 03/30/16 11:46 Test 03/30/16 11:16 03/30/16 11:20 03/30/16 11:46 Influenza Type A Antigen Neg for Influ A (NEG) Influenza Type B Antigen POS for Influ B (NEG) Urine Color YELLOW Urine Appearance CLEAR (CLEAR) Urine pH 6.0 (4.5-7.5) Urine Specific [place] 1.003 (1.000-1.030) Urine Protein NEG (NEG) Urine Glucose (UA) NEG (NEG) Urine Ketones NEG (NEG) Urine Occult Blood NEG (NEG) Urine Nitrite NEG (NEG) Urine Bilirubin NEG (NEG) Urine Urobilinogen NEG (NEG) Urine Leukocyte Esterase NEG (NEG) White Blood Count 9.37 K/uL (4.8-10.8) Red Blood Count 4.93 M/uL (4.2-5.4) Hemoglobin 11.3 g/dL (12.0-16.0) Hematocrit 36.1 % (37-47) Mean Corpuscular Volume 73.2 fL (80-100) Mean Corpuscular Hemoglobin 22.9 pg (25-34) Mean Corpuscular Hemoglobin Concent 31.3 g/dl (32-36) Platelet Count 238 K/uL (130-400) Mean Platelet Volume 9.8 fL (7.4-10.4) Neutrophils (%) (Auto) 82.1 % Lymphocytes (%) (Auto) 12.3 % Monocytes (%) (Auto) 4.8 % Eosinophils (%) (Auto) 0.4 % Basophils (%) (Auto) 0.2 % Neutrophils # (Auto) 7.69 K/uL (1.4-6.5) Lymphocytes # (Auto) 1.15 K/uL (1.2-3.4) Monocytes # (Auto) 0.45 K/uL (0.11-0.59) Eosinophils # (Auto) 0.04 K/uL (0-0.5) Basophils # (Auto) 0.02 K/uL (0-0.2) RDW Standard Deviation 45.8 fL (36.4-46.3) RDW Coefficient of Variation 17.2 % (11.5-14.5) Immature Granulocyte % (Auto) 0.2 % Immature Granulocyte # (Auto) 0.02 K/uL (0.00-0.02) Anion Gap 14.0 mmol/L (3-11) Est Creatinine Clear Calc Drug Dose 106.6 ml/min Estimated GFR () 95.6 Estimated GFR (Non- 82.5 BUN/Creatinine Ratio 13.6 (10-20) Calcium Level 8.8 mg/dl (8.5-10.1) Total Bilirubin 0.2 mg/dl (0.2-1) Aspartate Amino Transf (AST/SGOT) 11 U/L (15-37) Alanine Aminotransferase (ALT/SGPT) 23 U/L (12-78) Alkaline Phosphatase 65 U/L (45-117) Pro-B-Type Natriuretic Peptide 69 pg/ml (0-900) Total Protein 7.6 gm/dl (6.4-8.2) Albumin 3.3 gm/dl (3.4-5.0) Globulin 4.3 gm/dl (2.5-4.0) Albumin/Globulin Ratio 0.8 (0.9-2) Medical Decision Patient was seen and evaluated as above. The above workup was completed. Radiograph was obtained and noted to be stable from previous. Patient presents with symptomatology similar and consistent with that of influenza. This was verified by swab. She was noted to have an anemia but no leukocytosis. Anion gaps of 14, glucose 210 AST of 11 with minor albumin and globulin abnormalities. These were discussed with the patient. Urine was negative. Patient was positive for influenza B. She'll be treated with Tamiflu 75 mg twice a day for 5 days. She was stable here with no pneumonia. She clinically appeared well and did not have any chest pain or concerning shortness of breath. Her vital signs are stable. She was educated to follow-up with her family doctor regarding today's findings. She had questions answered prior to discharge, was educated upon worrisome symptoms which to return and was discharged home in good condition. Patient is stable for discharge, I do not believe she would benefit from admission. In evaluation treatment this patient following differential diagnoses were entertained: Myocardial infarction, pneumonia, pulmonary embolism, bronchitis, COPD, viral illness, among others. Impression Primary Impression: Influenza B Additional Impression: Anemia Departure Information Dispostion Home / Self-Care Condition GOOD Prescriptions Oseltamivir (Tamiflu) 75 Mg Cap 75 MG PO BID for 5 Days, #10 CAP Prov: Andrade Hooks PA-C 03/30/16 Referrals RV. Patterson MD (PCP) Patient Instructions [facility] Additional Instructions You were seen in the emergency department and diagnosed with influenza B. Please have basic blood work repeated with her family doctor as we discussed to include CBC and CMP. You were slightly anemic. Please drink plenty of fluids, rest and eat a healthy and well balanced diet. Please resume her normal medications. You've been prescribed Tamiflu. This is one tablet twice daily for 5 days. Please schedule follow-up with your family doctor as soon as possible. Please return to the emergency department with any new/concerning symptoms. Problem Qualifiers
[2016-03-30 11:44] LABS: URINE APPEARANCE CLEAR (CLEAR); URINE BILIRUBIN NEG (NEG); URINE COLOR YELLOW; URINE NITRITE NEG (NEG); URINE SPECIFIC GRAVITY 1.003 (1.000-1.030); UROBILINOGEN NEG (NEG); ZZUR CULT IF INDIC CLEAN CATCH NO
[2016-03-30 12:02] LABS: MANUAL MICROSCOPIC REQUIRED? NO; REVIEW REQ? NO
[2016-03-30 12:04] LABS: BASO % 0.2 %; BASO ABS # 0.02 K/uL (0-0.2); COMPLETE YES; EOS % 0.4 %; HEMATOCRIT 36.1 % (37-47); IG% 0.2 %; LYMPH % 12.3 %; LYMPH ABS # 1.15 K/uL (1.2-3.4); MEAN CELL VOLUME 73.2 fL (80-100); MEAN CORPUSCULAR HEMOGLOBIN 22.9 pg (25-34); MEAN CORPUSCULAR HGB CONC 31.3 g/dl (32-36); MEAN PLATELET VOLUME 9.8 fL (7.4-10.4); MONO % 4.8 %; NEUT % 82.1 %; PLATELET COUNT 238 K/uL (130-400); RED BLOOD COUNT 4.93 M/uL (4.2-5.4); WHITE BLOOD COUNT 9.37 K/uL (4.8-10.8)
[2016-03-30 12:23] LABS: BUN/CREATININE RATIO 13.6 (10-20); CALCIUM 8.8 mg/dl (8.5-10.1); CREATININE 0.79 mg/dl (0.60-1.20); POTASSIUM 3.7 mmol/L (3.5-5.1)
[2016-03-30 12:28] LABS: ALB/GLOB RATIO 0.8 (0.9-2)
--- NOTE | 2016-03-30 12:29 | DIAGNOSTIC IMAGING REPORT ---
CHEST 2 VIEWS ROUTINE CLINICAL HISTORY: Cough. COMPARISON STUDY: Chest CT February 29, 2016 and chest radiograph March 25, 2016. FINDINGS: A right shoulder arthroplasty is incidentally noted. Elevation of the right hemidiaphragm is unchanged. Cardiomediastinal silhouette is stable. There is no pneumothorax or pleural effusion. Pulmonary vascularity is normal. The appearance of the chest is unchanged. IMPRESSION: No acute findings. No change in appearance of the chest with stable elevation of the right hemidiaphragm. Electronically signed by: Ángel Garcia M.D. 03/30/2016 12:28 PM Dictated Date/Time: 03/30/2016 12:27 PM
[2016-03-30] MEDS ORDERED: OSEL75CA12 PO (12:47)
[2016-03-30 13:01] VITALS: BP 119/69; PULSE 100; O2SAT 93
[2016-06-23] MEDS ORDERED: HYDR0.75 PO (11:56)
[2016-06-23] MEDS ORDERED: BENZ100C84 PO (11:56)
[2016-06-23] MEDS ORDERED: ONDA4TAB46 PO (12:01)
[2016-06-23] MEDS ORDERED: MONT1TAB3 PO (16:13)
[2016-08-24] MEDS ORDERED: METF-384 PO (10:03)
[2016-08-24] MEDS ORDERED: POTA1080 PO (10:03)
[2016-08-24] MEDS ORDERED: INSU100I SC (12:01)
[2016-08-24] MEDS ORDERED: INSDGI SC (12:01)
== END 2016-03-30 13:05 | disposition home or self-care (01) ==
LOC: C.EDB 10:57 → C.EDC 13:05
DX: J10.1 Influenza due to other identified influenza virus with other respiratory manifestations (principal); D64.9 Anemia, unspecified; J44.9 Chronic obstructive pulmonary disease, unspecified; E11.9 Type 2 diabetes mellitus without complications; G47.30 Sleep apnea, unspecified; Z79.4 Long term (current) use of insulin; Z79.82 Long term (current) use of aspirin; Z79.84 Long term (current) use of oral hypoglycemic drugs; Z79.899 Other long term (current) drug therapy; Z88.7 Allergy status to serum and vaccine; Z87.891 Personal history of nicotine dependence; Z82.49 Family history of ischemic heart disease and other diseases of the circulatory system; Z83.3 Family history of diabetes mellitus; Z84.1 Family history of disorders of kidney and ureter

== ENCOUNTER 2016-04-04 12:05 | Emergency (ER) | payer OTHER ==
[~2016-04-04] VITALS: Ht 160 cm; Wt 140.0 kg
[~2016-04-04 12:05] MED LIST changes: +HMLI SC; +INSDGI SC; +OSEL75CA12 PO
[2016-04-04 12:07] VITALS: TEMP 37; Ht 160 cm; Wt 140.0 kg
[2016-04-04] MEDS ORDERED: METHYLPREDNISOLONE 125 MG VIAL IV STA (13:08)
[2016-04-04] MEDS ORDERED: SODIUM CHLORIDE 0.9% 1000ML 1,000 ML IV ONE (13:15)
[2016-04-04 13:48] LABS: BASO % 0.2 %; BASO ABS # 0.03 K/uL (0-0.2); COMPLETE YES; EOS % 0.2 %; HEMATOCRIT 38.6 % (37-47); IG% 0.2 %; LYMPH % 18.4 %; LYMPH ABS # 2.37 K/uL (1.2-3.4); MEAN CELL VOLUME 74.5 fL (80-100); MEAN CORPUSCULAR HEMOGLOBIN 23.6 pg (25-34); MEAN CORPUSCULAR HGB CONC 31.6 g/dl (32-36); MEAN PLATELET VOLUME 9.6 fL (7.4-10.4); MONO % 4.2 %; NEUT % 76.8 %; PLATELET COUNT 228 K/uL (130-400); RED BLOOD COUNT 5.18 M/uL (4.2-5.4); WHITE BLOOD COUNT 12.85 K/uL (4.8-10.8)
--- NOTE | 2016-04-04 14:04 | DIAGNOSTIC IMAGING REPORT ---
CHEST 2 VIEWS ROUTINE HISTORY: Cough. COMPARISON: Chest 03/30/2016. FINDINGS: Chronic elevation of the right hemidiaphragm. No focal lung consolidations to suggest pneumonia. No evidence for pulmonary edema. The heart is normal in size. Right shoulder prosthesis. No pleural effusions. No pneumothorax. IMPRESSION: No significant change compared to the prior study. No acute process. Electronically signed by: Ace Tinajero M.D. 04/04/2016 2:03 PM Dictated Date/Time: 04/04/2016 2:01 PM
[2016-04-04 14:08] LABS: BUN/CREATININE RATIO 14.2 (10-20); CALCIUM 9.1 mg/dl (8.5-10.1); CREATININE 0.69 mg/dl (0.60-1.20); MAGNESIUM 2.1 mg/dl (1.8-2.4)
[2016-04-04 14:11] LABS: ALB/GLOB RATIO 0.7 (0.9-2)
[2016-04-04] MEDS ORDERED: PRED20TA PO (15:15)
[2016-04-04 15:41] VITALS: BP 144/88; PULSE 93; O2SAT 95
--- NOTE | 2016-04-06 00:47 | EMERGENCY ROOM VISIT NOTE ---
History First contact with patient: 13:00 Chief Complaint: RESPIRATORY PROBLEMS Stated Complaint: BREATHING PROBLEMS/COUGHING UP BLOOD Nursing Triage Summary: pt. states she was here last week with the flu, she took her tamiflu and still has flu like symptoms History of Present Illness The patient is a 60 year old female who presents to the Emergency Room with complaints of coughing and wheezing for the past several days. The patient was seen in this ER about 5 days ago where she was diagnosed positive influenza B. The patient took her Tamiflu and prednisone as prescribed. She continues to have some ill feelings and sinus congestion. She states that she had 2 episodes of scant blood-tinged sputum this morning. When she told her daughter , her daughter became very worried, and told her to come to the ER. The patient has a history of asthma, COPD, and SVT. 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 The patient has not had a return of her fever and has not taken anything [id number] for her symptoms. She is diabetic and her sugars have been elevated because of her prednisone dosing. She does not have abdominal pain, lightheadedness, or dizziness. She rates her discomfort a 5/10. Review of Systems More than 10 systems were reviewed and otherwise negative with the exception of history of present illness. Past Medical/Surgical History Medical Problems: (1) Asthma (2) Calculus Of Kidney (3) Cholecystectomy (4) Chronic obstructive lung disease (5) Diabetes mellitus (6) Hysterectomy (7) Left arm numbness (8) Rotator cuff arthropathy (9) Shortness of breath (10) Sleep apnea (11) SVT (supraventricular tachycardia) Family History Diabetes mellitus Hypertension Kidney stones Social History Smoking Status: Former Smoker Alcohol Use: none Drug Use: none, marijuana Marital Status: Housing Status: lives with family Occupation Status: disabled Current/Historical Medications Scheduled Aspirin (Aspirin Ec), 81 MG PO QAM Atorvastatin (Lipitor), 10 MG PO QPM Cetirizine (Zyrtec), 10 MG PO QAM Cholecalciferol (Vitamin D3), 2,000 UNITS PO QAM Cyanocobalamin (Vitamin B12), 1,000 MCG PO QPM Diltiazem Hcl Coated Beads (Cardizem Cd), 1 CAP PO DAILY Enalapril Maleate (Vasotec), 2.5 MG PO QPM Furosemide (Lasix), 40 MG PO BID Hydroxyzine Hcl (Atarax), 10 MG PO BID Insulin Glargine (Lantus), 80-90 UNITS SC QAM Insulin Lispro (Human) (Humalog), 55 UNITS SC DAILY Lidocaine (Aspercreme W/Lidocaine), 1 APPLN TOP PRN UD Liraglutide (Victoza), 1.8 MCG SQ QPM Metformin Hcl (Glucophage), 1,000 MG PO BIDM Mometasone Furoate-Formoterol (Dulera 200/5 Mcg), 2 PUFFS INH BID Montelukast Sodium (Singulair), 10 MG PO HS Potassium Citrate (Alkalinizer (Potassium Citrate ER), 10 MEQ PO BID Prednisone (Prednisone), 0 PO DAILY Ranitidine (Zantac), 150 MG PO Q12 Scheduled PRN Acetaminophen (Tylenol), 4 TABS PO TID PRN for Headache or Pain Benzonatate (Tessalon Perles), 100 MG PO TID PRN for UD Hydrocodone/Homatropine (Hydromet), 5 ML PO HS PRN for PRN Levalbuterol Tartrate (Levalbuterol Tartrate Hfa), 2 PUFFS INH Q6H PRN for Wheezing Nystatin-Triamcinolone (Nystatin/Triamcinolone), 1 APPLN TOP BID PRN for Ondansetron Hcl (Zofran), 4 MG PO Q6 PRN for Nausea Tramadol (Ultram), 50 MG PO QPM PRN for Pain Allergies Coded Allergies: Tetanus Toxoid (Verified Allergy, Unknown, ARM SWELLING ITCHY, 03/30/16) Physical Exam Vital Signs Date Time Temp Pulse Resp B/P Pulse Ox O2 Delivery O2 Flow Rate FiO2 04/04/16 15:41 93 16 144/88 95 04/04/16 13:46 83 16 160/83 95 Room Air 04/04/16 12:07 37.0 95 20 136/72 94 Room Air Physical Exam VITALS: Vitals are noted on the nurse's note and reviewed by myself. Vital signs stable. GENERAL: Well-developed, well-nourished, obese white female, who is in no acute distress and resting comfortably. Patient is cooperative with the examination. HEAD: Normocephalic atraumatic. HEART: Regular rate and rhythm without murmurs gallops or rubs. LUNGS: Clear to auscultation bilaterally without wheezes, rales or rhonchi. No retractions or accessory muscle use. ABDOMEN: Positive normal bowel sounds x 4. Soft, nontender, without masses or organomegaly. No guarding or rebound tenderness. MUSCULOSKELETAL: No muscle atrophy, erythema, or edema noted. Full range of motion without joint tenderness in all extremities. NEURO: Patient was alert and oriented to person place and time. CN II through XII grossly intact. Medical Decision & Procedures ER Provider Diagnostic Interpretation: [~ rep ct add3]] CHEST 2 VIEWS ROUTINE HISTORY: Cough. COMPARISON: Chest 03/30/2016. FINDINGS: Chronic elevation of the right hemidiaphragm. No focal lung consolidations to suggest pneumonia. No evidence for pulmonary edema. The heart is normal in size. Right shoulder prosthesis. No pleural effusions. No pneumothorax. IMPRESSION: No significant change compared to the prior study. No acute process. Laboratory Results 04/04/16 13:35 Red Blood Count 5.18, Mean Corpuscular Volume 74.5, Mean Corpuscular Hemoglobin 23.6, Mean Corpuscular Hemoglobin Concent 31.6, Mean Platelet Volume 9.6, Neutrophils (%) (Auto) 76.8, Lymphocytes (%) (Auto) 18.4, Monocytes (%) (Auto) 4.2, Eosinophils (%) (Auto) 0.2, Basophils (%) (Auto) 0.2, Neutrophils # (Auto) 9.85, Lymphocytes # (Auto) 2.37, Monocytes # (Auto) 0.54, Eosinophils # (Auto) 0.03, Basophils # (Auto) 0.03 04/04/16 13:35 Test 04/04/16 13:35 04/04/16 13:46 White Blood Count 12.85 K/uL (4.8-10.8) Red Blood Count 5.18 M/uL (4.2-5.4) Hemoglobin 12.2 g/dL (12.0-16.0) Hematocrit 38.6 % (37-47) Mean Corpuscular Volume 74.5 fL (80-100) Mean Corpuscular Hemoglobin 23.6 pg (25-34) Mean Corpuscular Hemoglobin Concent 31.6 g/dl (32-36) Platelet Count 228 K/uL (130-400) Mean Platelet Volume 9.6 fL (7.4-10.4) Neutrophils (%) (Auto) 76.8 % Lymphocytes (%) (Auto) 18.4 % Monocytes (%) (Auto) 4.2 % Eosinophils (%) (Auto) 0.2 % Basophils (%) (Auto) 0.2 % Neutrophils # (Auto) 9.85 K/uL (1.4-6.5) Lymphocytes # (Auto) 2.37 K/uL (1.2-3.4) Monocytes # (Auto) 0.54 K/uL (0.11-0.59) Eosinophils # (Auto) 0.03 K/uL (0-0.5) Basophils # (Auto) 0.03 K/uL (0-0.2) RDW Standard Deviation 46.3 fL (36.4-46.3) RDW Coefficient of Variation 17.1 % (11.5-14.5) Immature Granulocyte % (Auto) 0.2 % Immature Granulocyte # (Auto) 0.03 K/uL (0.00-0.02) Anion Gap 11.0 mmol/L (3-11) Est Creatinine Clear Calc Drug Dose 122.7 ml/min Estimated GFR () 111.2 Estimated GFR (Non- 96.0 BUN/Creatinine Ratio 14.2 (10-20) Calcium Level 9.1 mg/dl (8.5-10.1) Magnesium Level 2.1 mg/dl (1.8-2.4) Total Bilirubin 0.2 mg/dl (0.2-1) Aspartate Amino Transf (AST/SGOT) 19 U/L (15-37) Alanine Aminotransferase (ALT/SGPT) 24 U/L (12-78) Alkaline Phosphatase 69 U/L (45-117) Total Protein 7.9 gm/dl (6.4-8.2) Albumin 3.2 gm/dl (3.4-5.0) Globulin 4.7 gm/dl (2.5-4.0) Albumin/Globulin Ratio 0.7 (0.9-2) Bedside Troponin I 0.000 ng/ml (0-0.045) Medications Administered Medications (Trade) Dose Ordered Sig/Neida Route Start Time Stop Time Status Last Admin Dose Admin Sodium Chloride (Nss 1000ml) 1,000 ml @ 999 mls/hr Q1H1M ONCE IV 04/04/16 13:15 04/04/16 14:15 DC 04/04/16 13:51 999 MLS/HR Methylprednisolone Sodium Succinate (Solu-Medrol IV) 125 mg NOW STAT IV 04/04/16 13:08 04/04/16 13:12 DC 04/04/16 13:51 125 MG ED Course Physical exam and history were performed. Nursing notes and EMR were reviewed. Patient appears to have generalized illness and flulike symptoms for the past several days. IV access was established and labs were obtained. The patient was hydrated and medicated as above. Chest x-ray was performed. The patient's blood work does show very mild elevation of her white blood cell count. She does not have a significant anemia, bandemia, or gross electrolyte imbalance. Troponin is negative. Chest x-ray does not show significant acute findings. Overall the patient had significant improvement of her symptoms after the above interventions. I suspect that she likely has a bronchitis, as she has had this several times in the past. I discussed options of care with the patient and will give her a course of prednisone for her symptoms. She will need to monitor her sugar closely. She does need close follow-up with her primary care physician, and was otherwise invited back to the ER with any new, worsening, or concerning symptoms. The chart was completed utilizing [employer] Speech Voice Recognition Software. Grammatical errors, random word insertions, pronoun errors, and incomplete sentences are an occasional consequence of this system due to software limitations, ambient noise, and hardware issues. Any formal questions or concerns about the content, text, or information contained within the body of this dictation should be directly addressed to the provider for clarification. . Medical Decision Differential diagnosis: Etiologies such as infections, reactive airway disease, pneumonia, pneumothorax , COPD, CHF, cardiac ischemia, pulmonary embolism, musculoskeletal, gastrointestinal, as well as others were entertained. Impression Primary Impression: Acute bronchitis Departure Information Prescriptions Prednisone (Prednisone) 20 Mg Tab 0 PO DAILY, #18 TAB 3 DAILY FOR 3 DAYS, THEN 2 DAILY FOR 3 DAYS, THEN 1 DAILY FOR 3 DAYS. Prov: Jax So PA-C 04/04/16 Referrals RV. Patterson MD (PCP) Patient Instructions [facility]
[2016-06-23] MEDS ORDERED: HYDR0.75 PO (11:56)
[2016-06-23] MEDS ORDERED: BENZ100C84 PO (11:56)
[2016-06-23] MEDS ORDERED: ONDA4TAB46 PO (12:01)
[2016-06-23] MEDS ORDERED: MONT1TAB3 PO (16:13)
[2016-08-24] MEDS ORDERED: METF-384 PO (10:03)
[2016-08-24] MEDS ORDERED: POTA1080 PO (10:03)
[2016-08-24] MEDS ORDERED: INSDGI SC (12:01)
[2016-08-24] MEDS ORDERED: INSU100I SC (12:01)
== END 2016-04-04 15:43 | disposition home or self-care (01) ==
LOC: C.EDB 12:07 → C.EDC 15:43
DX: J44.0 Chronic obstructive pulmonary disease with (acute) lower respiratory infection (principal); J45.909 Unspecified asthma, uncomplicated; E11.9 Type 2 diabetes mellitus without complications; Z90.710 Acquired absence of both cervix and uterus; Z90.49 Acquired absence of other specified parts of digestive tract; Z87.442 Personal history of urinary calculi; Z83.3 Family history of diabetes mellitus; Z82.49 Family history of ischemic heart disease and other diseases of the circulatory system; Z87.891 Personal history of nicotine dependence; Z79.82 Long term (current) use of aspirin; Z79.4 Long term (current) use of insulin; Z79.84 Long term (current) use of oral hypoglycemic drugs; Z79.52 Long term (current) use of systemic steroids

== ENCOUNTER 2016-04-15 00:57 | Emergency (ER) | payer OTHER ==
[~2016-04-15] VITALS: Ht 160 cm; Wt 137.8 kg
[~2016-04-15 00:57] MED LIST changes: -HMLI SC; -INSDGI SC; -OSEL75CA12 PO; +PRED20TA PO
[2016-04-15 01:03] VITALS: O2SAT 95; Ht 160 cm; Wt 137.8 kg
[2016-04-15] MEDS ORDERED: LORAZEPAM 2 MG/ML 1 ML VIAL IV STA (01:10)
--- NOTE | 2016-04-15 01:14 | EMERGENCY ROOM VISIT NOTE ---
History Report prepared by Rashida: Adolfo Bynum Under the Supervision of: Dr. Osito Gibson M.D. First contact with patient: 01:02 Chief Complaint: CHEST PAIN Stated Complaint: CHEST PAIN History of Present Illness The patient is a 60 year old female who presents to the Emergency Room with complaints of constant pain in her chest that began yesterday afternoon at 1400 , 11.5 hours prior to arrival. The patient describes the pain as a pressure and states that it is localized to her left chest. She claims that this episode is not at all similar to the "fluttering" that she has felt in the past. She claims that she has been intermittently short of breath secondary to the pain, but denies passing out at anytime. The patient is also complaining of intermittent headaches, which are more persistent than usual over the past two days. She notes that she had a stress test and echocardiogram 2 months ago, which were normal. 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 A total of 10 systems reviewed and were otherwise negative. Past Medical & Surgical Medical Problems: (1) Asthma (2) Calculus Of Kidney (3) Cholecystectomy (4) Chronic obstructive lung disease (5) Diabetes mellitus (6) Hysterectomy (7) Left arm numbness (8) Rotator cuff arthropathy (9) Shortness of breath (10) Sleep apnea (11) SVT (supraventricular tachycardia) Family History Diabetes mellitus Hypertension Kidney stones Social History Smoking Status: Former Smoker Alcohol Use: none Drug Use: none, marijuana Marital Status: Housing Status: lives with family Occupation Status: disabled Current/Historical Medications Scheduled Aspirin (Aspirin Ec), 81 MG PO QAM Atorvastatin (Lipitor), 10 MG PO QPM Cetirizine (Zyrtec), 10 MG PO QAM Cholecalciferol (Vitamin D3), 2,000 UNITS PO QAM Cyanocobalamin (Vitamin B12), 1,000 MCG PO QPM Diltiazem Hcl Coated Beads (Cardizem Cd), 1 CAP PO DAILY Enalapril Maleate (Vasotec), 2.5 MG PO QPM Furosemide (Lasix), 40 MG PO BID Hydroxyzine Hcl (Atarax), 10 MG PO BID Insulin Glargine (Lantus), 80-90 UNITS SC QAM Insulin Lispro (Human) (Humalog), 55 UNITS SC DAILY Lidocaine (Aspercreme W/Lidocaine), 1 APPLN TOP PRN UD Liraglutide (Victoza), 1.8 MCG SQ QPM Metformin Hcl (Glucophage), 1,000 MG PO BIDM Mometasone Furoate-Formoterol (Dulera 200/5 Mcg), 2 PUFFS INH BID Montelukast Sodium (Singulair), 10 MG PO HS Potassium Citrate (Alkalinizer (Potassium Citrate ER), 10 MEQ PO BID Prednisone (Prednisone), 0 PO DAILY Ranitidine (Zantac), 150 MG PO Q12 Scheduled PRN Acetaminophen (Tylenol), 325 MG PO TID PRN for Headache or Pain Benzonatate (Tessalon Perles), 100 MG PO TID PRN for UD Hydrocodone/Homatropine (Hydromet), 5 ML PO HS PRN for PRN Levalbuterol Tartrate (Levalbuterol Tartrate Hfa), 2 PUFFS INH Q6H PRN for Wheezing Nystatin-Triamcinolone (Nystatin/Triamcinolone), 1 APPLN TOP BID PRN for Ondansetron Hcl (Zofran), 4 MG PO Q6 PRN for Nausea Tramadol (Ultram), 50 MG PO QPM PRN for significant low back pain Allergies Coded Allergies: Tetanus Toxoid (Verified Allergy, Unknown, ARM SWELLING ITCHY, 04/15/16) Physical Exam Vital Signs Date Time Temp Pulse Resp B/P Pulse Ox O2 Delivery O2 Flow Rate FiO2 04/15/16 03:23 36.6 101 18 103/80 96 04/15/16 01:54 101 14 91/40 93 Room Air 04/15/16 01:08 97 04/15/16 01:03 95 Room Air 04/15/16 01:03 36.8 111 21 120/60 96 Room Air 04/15/16 01:03 95 Room Air Physical Exam GENERAL: Patient is in mild anxious distress. HEENT: No acute trauma, normocephalic atraumatic, mucous membranes moist, no nasal congestion, no scleral icterus. NECK: No stridor, no adenopathy, no meningismus, trachea is midline. LUNGS: No dyspnea. Clear to auscultation and equal bilaterally. No wheeze, no rhonchi. HEART: Regular rate and rhythm. No murmurs, rubs, gallops appreciated. ABDOMEN: Soft, nontender, bowel sounds positive, no masses appreciated, no peritonitis. BACK: No midline tenderness, no CVA tenderness EXTREMITIES: Normal motion all extremities, no cyanosis, no edema. NEUROLOGIC: Alert and oriented, no acute motor or sensory deficits, no focal weakness, cranial nerves grossly intact. SKIN: No rash, no jaundice, no diaphoresis. Medical Decision & Procedures ER Provider Diagnostic Interpretation: X ray results are stated below per my interpretation and the radiologist's interpretation. CHEST X-RAY: X ray results are stated below per my interpretation: Chest: 1 view: No infiltrate, no effusion, normal cardiac border. no change form previous. Laboratory Results 04/15/16 01:25 Red Blood Count 5.21, Mean Corpuscular Volume 73.9, Mean Corpuscular Hemoglobin 23.2, Mean Corpuscular Hemoglobin Concent 31.4, Mean Platelet Volume 9.8, Neutrophils (%) (Auto) 72.9, Lymphocytes (%) (Auto) 19.3, Monocytes (%) (Auto) 6.6, Eosinophils (%) (Auto) 0.7, Basophils (%) (Auto) 0.2, Neutrophils # (Auto) 13.01, Lymphocytes # (Auto) 3.44, Monocytes # (Auto) 1.17, Eosinophils # (Auto) 0.13, Basophils # (Auto) 0.04 04/15/16 01:25 Test 04/15/16 01:25 04/15/16 02:34 White Blood Count 17.84 K/uL (4.8-10.8) Red Blood Count 5.21 M/uL (4.2-5.4) Hemoglobin 12.1 g/dL (12.0-16.0) Hematocrit 38.5 % (37-47) Mean Corpuscular Volume 73.9 fL (80-100) Mean Corpuscular Hemoglobin 23.2 pg (25-34) Mean Corpuscular Hemoglobin Concent 31.4 g/dl (32-36) Platelet Count 240 K/uL (130-400) Mean Platelet Volume 9.8 fL (7.4-10.4) Neutrophils (%) (Auto) 72.9 % Lymphocytes (%) (Auto) 19.3 % Monocytes (%) (Auto) 6.6 % Eosinophils (%) (Auto) 0.7 % Basophils (%) (Auto) 0.2 % Neutrophils # (Auto) 13.01 K/uL (1.4-6.5) Lymphocytes # (Auto) 3.44 K/uL (1.2-3.4) Monocytes # (Auto) 1.17 K/uL (0.11-0.59) Eosinophils # (Auto) 0.13 K/uL (0-0.5) Basophils # (Auto) 0.04 K/uL (0-0.2) RDW Standard Deviation 47.2 fL (36.4-46.3) RDW Coefficient of Variation 17.6 % (11.5-14.5) Immature Granulocyte % (Auto) 0.3 % Immature Granulocyte # (Auto) 0.05 K/uL (0.00-0.02) Anion Gap 13.0 mmol/L (3-11) Est Creatinine Clear Calc Drug Dose 111.7 ml/min Estimated GFR () 101.8 Estimated GFR (Non- 87.9 BUN/Creatinine Ratio 18.4 (10-20) Calcium Level 9.0 mg/dl (8.5-10.1) Total Creatine Kinase 73 U/L (26-192) Creatine Kinase MB 0.9 ng/ml (0.5-3.6) Creatine Kinase MB Ratio 1.2 (0-3.0) Troponin I < 0.015 ng/ml (0-0.045) Bedside Troponin I 0.000 ng/ml (0-0.045) Laboratory results as reviewed by me. Medications Administered Medications (Trade) Dose Ordered Sig/Neida Route Start Time Stop Time Status Last Admin Dose Admin Nitroglycerin (Nitrostat Tab) 0.4 mg PRN PRN SL 04/15/16 01:15 04/15/16 03:49 DC 04/15/16 01:44 0.4 MG Lorazepam (Ativan Inj) 0.5 mg NOW STAT IV 04/15/16 01:10 04/15/16 01:11 DC 04/15/16 01:10 0.5 MG Fentanyl Citrate 50 mcg 50 mcg NOW STAT IV 04/15/16 02:00 04/15/16 02:02 DC 04/15/16 02:16 50 MCG Sodium Chloride (Nss 1000ml) 1,000 ml @ 999 mls/hr Q1H1M STAT IV 04/15/16 02:00 04/15/16 03:00 DC 04/15/16 02:16 999 MLS/HR ECG Indication: chest pain Rate (beats per minute): 90 Rhythm: normal sinus Findings: no acute ischemic change, no ectopy Comparison ECG Date: 04/04/2016 Change: no significant change ED Course 0104: The patient was evaluated in room B6. A complete history and physical exam was performed. 0110: Ordered Lorazepam 0.5 mg IV. 0115: Ordered Nitroglycerin 0.4 mg SL. 0200: Ordered Sodium Chloride 1000 mL @ 999 mL/hr IV, Fentanyl Citrate 50 mcg IV. 0221: I checked on the patient at this time, she is feeling better and would like to go home. She notes she just finished a round of steroids. 0230: I offered admission to the patient at this time. She declines this offer, but is willing to stay for repeat admission. 0313: I reevaluated the patient at this time. She still refuses admission and would like to go home. She is away that she can return to the emergency department at any time. The patient will be discharged home. Medical Decision Differential: Cardiac Ischemia (STEMI, NSTEMI, Unstable Angina, etc), Aortic Dissection, Arrhythmia, Pulmonary Embolism, Pneumonia, Pneumothorax, MSK, Infectious, Pericarditis/Myocarditis, Esophageal Rupture, Gastrointestinal, amongst other pathologies entertained. 60 yr old female arrives complaining of left chest pain. Recent admission for cardiac eval with negative reported stress test. Resolved not with SLNTG but with Fentanyl. Much calmer after ativan. Mild hypoTN after Nitro improving with fluids. Pain completely gone. EKG unremarkable, CXR clear, Trop negative. WBC elevated consistent with prednisone she finished yesterday. She is requesting discharge and will not stay in hospital. Daughter at bedside agrees with discharge. Advised that can not completely rule out this wasn't heart. Was willing to stay for second Trop which was negative though still wishing to go home. She is aware she can return at any time if worsening or other concerns. Stressed importance of PCP follow up in next few days. Impression Primary Impression: Left sided chest pain Additional Impression: Elevated WBC count Scribe Attestation The scribe's documentation has been prepared under my direction and personally reviewed by me in its entirety. I confirm that the note above accurately reflects all work, treatment, procedures, and medical decision making performed by me. Departure Information Dispostion Home / Self-Care Referrals RV. Patterson MD (PCP) Patient Instructions Chest Pain - [facility], [facility] Additional Instructions Please follow up with your primary care provider in the next few days. Return immediately if worsening pain, difficulty breathing, chest discomfort, vomiting, fevers, passing out or other concerns. We are always here to help. Problem Qualifiers Additional Impression: Elevated WBC count Leukocytosis type: unspecified Qualified Codes: D72.829 - Elevated white blood cell count, unspecified
[2016-04-15] MEDS ORDERED: NITROGLYCERIN 0.4 MG SL PER TAB CHARGE SL PRN (01:15)
[2016-04-15 01:43] LABS: BASO % 0.2 %; BASO ABS # 0.04 K/uL (0-0.2); COMPLETE YES; EOS % 0.7 %; HEMATOCRIT 38.5 % (37-47); IG% 0.3 %; LYMPH % 19.3 %; LYMPH ABS # 3.44 K/uL (1.2-3.4); MEAN CELL VOLUME 73.9 fL (80-100); MEAN CORPUSCULAR HEMOGLOBIN 23.2 pg (25-34); MEAN CORPUSCULAR HGB CONC 31.4 g/dl (32-36); MEAN PLATELET VOLUME 9.8 fL (7.4-10.4); MONO % 6.6 %; NEUT % 72.9 %; PLATELET COUNT 240 K/uL (130-400); RED BLOOD COUNT 5.21 M/uL (4.2-5.4); WHITE BLOOD COUNT 17.84 K/uL (4.8-10.8)
[2016-04-15] MEDS ORDERED: SODIUM CHLORIDE 0.9% 1000ML 1,000 ML IV STA (02:00)
[2016-04-15] MEDS ORDERED: FENTANYL CITRATE INJ 50 MCG/1 ML 2 ML VIAL IV STA (02:00)
[2016-04-15 02:01] LABS: BLOOD UREA NITROGEN 14 mg/dl (7-18); BUN/CREATININE RATIO 18.4 (10-20); CARBON DIOXIDE 30 mmol/L (21-32); CHLORIDE 99 mmol/L (98-107); CREATININE 0.75 mg/dl (0.60-1.20); GLUCOSE 75 mg/dl (70-99); POTASSIUM 3.8 mmol/L (3.5-5.1); SODIUM 142 mmol/L (136-145)
[2016-04-15 02:06] LABS: CKMB/CK RATIO 1.2 (0-3.0)
[2016-04-15 03:23] VITALS: BP 103/80; PULSE 101; TEMP 36.6; O2SAT 96
--- NOTE | 2016-04-15 07:28 | DIAGNOSTIC IMAGING REPORT ---
CHEST ONE VIEW PORTABLE HISTORY: Left-sided Chest Pain COMPARISON: Chest 04/04/2016. FINDINGS: No pleural effusions. No pneumothorax. Chronic elevation of the right hemidiaphragm. Right shoulder prosthesis. The lungs are otherwise clear. The heart is stable in size. IMPRESSION: No significant change compared to the prior study. No acute process. Electronically signed by: Ace Tinajero M.D. 04/15/2016 7:26 AM Dictated Date/Time: 04/15/2016 7:26 AM
[2016-06-23] MEDS ORDERED: BENZ100C84 PO (11:56)
[2016-06-23] MEDS ORDERED: HYDR0.75 PO (11:56)
[2016-06-23] MEDS ORDERED: ONDA4TAB46 PO (12:01)
[2016-06-23] MEDS ORDERED: MONT1TAB3 PO (16:13)
[2016-08-24] MEDS ORDERED: METF-384 PO (10:03)
[2016-08-24] MEDS ORDERED: POTA1080 PO (10:03)
[2016-08-24] MEDS ORDERED: INSDGI SC (12:01)
[2016-08-24] MEDS ORDERED: INSU100I SC (12:01)
== END 2016-04-15 03:23 | disposition home or self-care (01) ==
LOC: EDBD 00:57 → C.EDB 01:01
DX: D72.829 Elevated white blood cell count, unspecified (principal); R07.89 Other chest pain; R51 Headache; J45.909 Unspecified asthma, uncomplicated; E11.9 Type 2 diabetes mellitus without complications; Z79.82 Long term (current) use of aspirin; Z79.899 Other long term (current) drug therapy; Z79.4 Long term (current) use of insulin

== ENCOUNTER → 2016-04-19 | Outpatient (CLI) | payer OTHER ==
[~2016-04-19] MED LIST changes: +ACET-1311 PO; +ASPI-461 PO; +ASPI81TA28 PO; +ATOR10TA88 PO; +ATR10 PO; +BENZ100C84 PO; +CETI10TA84 PO; +CHOL2000 PO; +CHOL20005 PO; +CYAN100020 PO; +CYAN10004 PO; +DILT180C PO; +DLTCD/240 PO; +ENAL1TAB29 PO; +ENAL2.5T PO; +FERR325T PO; +FRS/40 PO; +HOME1TAB18 PO; +HYDR-389 PO; +HYDR0.75 PO; +INSDGI SC; +INSU100I SC; +LIRA18IN SQ; +METF-384 PO; +MOME200A INH; +MONT1TAB3 PO; +NYSTCRE32 TOP; +ONDA4TAB46 PO; +OXYC1TAB3 PO; +POTA1080 PO; +RANI300T PO; +RHNAQIN NAE; +SNG10 PO; +TRAM-10 PO; +ZNTT/150 PO
--- NOTE | 2016-04-19 14:30 | DIAGNOSTIC IMAGING REPORT ---
KUB CLINICAL HISTORY: N20.0 [id number] COMPARISON STUDY: 02/08/2016 FINDINGS: There are surgical clips within the right upper quadrant. There is scattered stool within the colon. There is no pathologic bowel dilatation. No urinary tract calculi are visualized on conventional radiographic imaging. There are multiple pelvic basin calcifications which will nonspecific likely represent phleboliths. IMPRESSION: 1. No evidence of pathologic bowel dilatation 2. No urinary tract calculi are visualized on conventional radiographic imaging Electronically signed by: Abdulkadir Guerrero M.D. 04/19/2016 2:28 PM Dictated Date/Time: 04/19/2016 2:27 PM
[2016-04-19 15:31] LABS: BASO % 0.3 %; BASO ABS # 0.04 K/uL (0-0.2); COMPLETE YES; EOS % 1.1 %; HEMATOCRIT 38.5 % (37-47); IG% 0.3 %; LYMPH % 23.4 %; LYMPH ABS # 2.76 K/uL (1.2-3.4); MEAN CORPUSCULAR HEMOGLOBIN 23.4 pg (25-34); MEAN CORPUSCULAR HGB CONC 31.2 g/dl (32-36); MEAN PLATELET VOLUME 10.3 fL (7.4-10.4); MONO % 7.3 %; NEUT % 67.6 %; PLATELET COUNT 246 K/uL (130-400); RED BLOOD COUNT 5.13 M/uL (4.2-5.4); WHITE BLOOD COUNT 11.78 K/uL (4.8-10.8)
[2016-04-19 15:54] LABS: URINE APPEARANCE CLEAR (CLEAR); URINE BILIRUBIN NEG (NEG); URINE COLOR YELLOW; URINE NITRITE NEG (NEG); URINE SPECIFIC GRAVITY 1.008 (1.000-1.030); UROBILINOGEN NEG (NEG); ZZUR CULT IF INDIC CLEAN CATCH NO
[2016-04-19 16:01] LABS: RATIO 7.8 mcg/mg (0-30.0)
[2016-04-19 16:05] LABS: MANUAL MICROSCOPIC REQUIRED? NO; REVIEW REQ? NO
== END | disposition home or self-care (01) ==
LOC: C.RAD 13:53
PROVIDERS: ATTEND Nurse Practitioner Family
DX: I10 Essential (primary) hypertension (principal); E11.8 Type 2 diabetes mellitus with unspecified complications; N20.0 Calculus of kidney

== ENCOUNTER → 2016-04-26 | Outpatient (CLI) | payer OTHER ==
[2016-04-26 11:06] LABS: URINE APPEARANCE CLEAR (CLEAR); URINE BILIRUBIN NEG (NEG); URINE COLOR YELLOW; URINE NITRITE NEG (NEG); URINE SPECIFIC GRAVITY 1.001 (1.000-1.030); UROBILINOGEN NEG (NEG)
[2016-04-26 11:08] LABS: MANUAL MICROSCOPIC REQUIRED? NO; REVIEW REQ? NO
== END | disposition home or self-care (01) ==
LOC: C.LAB1850 09:51
PROVIDERS: ATTEND Internal Medicine
DX: D72.829 Elevated white blood cell count, unspecified (principal); Z11.59 Encounter for screening for other viral diseases; R10.9 Unspecified abdominal pain

== ENCOUNTER → 2016-05-06 | Outpatient (CLI) | payer OTHER ==
[2016-05-06 12:08] LABS: BASO % 0.2 %; BASO ABS # 0.02 K/uL (0-0.2); COMPLETE YES; EOS % 0.8 %; IG% 0.3 %; LYMPH ABS # 2.16 K/uL (1.2-3.4); MEAN CELL VOLUME 75.2 fL (80-100); MEAN CORPUSCULAR HEMOGLOBIN 23.4 pg (25-34); MEAN CORPUSCULAR HGB CONC 31.1 g/dl (32-36); MEAN PLATELET VOLUME 9.6 fL (7.4-10.4); MONO % 8.3 %; NEUT % 68.4 %; PLATELET COUNT 268 K/uL (130-400); RED BLOOD COUNT 4.92 M/uL (4.2-5.4); WHITE BLOOD COUNT 9.84 K/uL (4.8-10.8)
== END | disposition home or self-care (01) ==
LOC: C.LAB1850 11:20
PROVIDERS: ATTEND Internal Medicine
DX: Z11.59 Encounter for screening for other viral diseases (principal); D72.829 Elevated white blood cell count, unspecified

== ENCOUNTER → 2016-05-22 | Outpatient (CLI) | payer OTHER ==
[~2016-05-22] MED LIST changes: +ATOR10TA82 PO; -ATOR10TA88 PO; +FERR1TAB62 PO; -FERR325T PO
--- NOTE | 2016-05-22 11:47 | DIAGNOSTIC IMAGING REPORT ---
LUMBAR SPINE 5 VIEWS CLINICAL HISTORY: Acute on chronic low back pain. FINDINGS: Five views of the lumbar spine are compared to study dated 02/08/2016. The skeletal structures are osteopenic. There is no radiographic evidence of fracture or malalignment. Vertebral body height and alignment are maintained throughout the lumbar spine. The transverse and spinous processes are intact. There is no evidence of spondylolysis. Anterior osteophytes are seen throughout. Facet arthropathy is seen in the mid to lower lumbar region. The intervertebral disc spaces appear maintained. The bony pelvis is intact as visualized. Sclerotic change is noted in the sacroiliac joints. Cholecystectomy clips are identified in the right upper quadrant. There is a nonobstructed abdominal bowel gas pattern noting moderate colonic fecal retention. Atherosclerotic calcification is seen in the abdominal aorta. IMPRESSION: 1. No acute bony abnormality is seen in the lumbar spine. There has been no significant change from 02/08/2016. 2. Osteopenia and mild spondylotic change as above. Dictated: 05/22/2016 11:41 AM Transcribed: 05/22/2016 11:46 AM [email or web address] Electronically signed by: Burak Nur M.D. 05/22/2016 11:47 AM Dictated Date/Time: 05/22/2016 11:41 AM
== END | disposition home or self-care (01) ==
LOC: C.RAD1850 11:06
PROVIDERS: ATTEND Internal Medicine
DX: M54.5 Low back pain (principal)

== ENCOUNTER 2016-05-28 11:33 | Emergency (ER) | payer OTHER ==
[~2016-05-28] VITALS: Ht 160 cm; Wt 142.0 kg
[~2016-05-28 11:33] MED LIST changes: -ACET-1311 PO; -ASPI-461 PO; -ASPI81TA28 PO; -ATOR10TA82 PO; -ATR10 PO; -BENZ100C84 PO; -CETI10TA84 PO; -CHOL2000 PO; -CHOL20005 PO; -CYAN100020 PO; -CYAN10004 PO; -DILT180C PO; -DLTCD/240 PO; -ENAL1TAB29 PO; -ENAL2.5T PO; -FERR1TAB62 PO; -FRS/40 PO; -HOME1TAB18 PO; -HYDR-389 PO; -HYDR0.75 PO; -INSDGI SC; -INSU100I SC; -LIRA18IN SQ; -METF-384 PO; -MOME200A INH; -MONT1TAB3 PO; -NYSTCRE32 TOP; -ONDA4TAB46 PO; -OXYC1TAB3 PO; -POTA1080 PO; -RANI300T PO; -RHNAQIN NAE; -SNG10 PO; -TRAM-10 PO; -ZNTT/150 PO
[2016-05-28 11:37] VITALS: TEMP 36.9; Ht 160 cm; Wt 142.0 kg
--- NOTE | 2016-05-28 12:53 | DIAGNOSTIC IMAGING REPORT ---
LEFT KNEE 3 VIEWS CLINICAL HISTORY: Left knee pain. Trauma. COMPARISON: None. DISCUSSION: There are postsurgical changes of a total left knee arthroplasty and patellar resurfacing. The distal quadriceps tendon calcifications are visualized. No acute fractures are evident. There are no dislocations. IMPRESSION: Postsurgical change. No acute fractures identified. Electronically signed by: Abdulkadir Guerrero M.D. 05/28/2016 12:51 PM Dictated Date/Time: 05/28/2016 12:50 PM
[2016-05-28 13:32] VITALS: BP 115/80; PULSE 103; O2SAT 96
--- NOTE | 2016-05-29 07:51 | EMERGENCY ROOM VISIT NOTE ---
History First contact with patient: 11:46 Chief Complaint: KNEEPAIN Stated Complaint: LEFT KNEE PAIN-FELL ABOUT 3 WKS AGO History of Present Illness The patient is a 60 year old female who presents to the Emergency Room with complaints of persistent left knee pain after falling 3 weeks ago. The patient states that she fell and landed onto her kneecap. The patient has been able to ambulate with some discomfort, but she states that her pain is worsened over the past 2 days. She does have ambulatory devices at home, and does use these for transferring. She generally uses her wheelchair to move around. The patient has been taking Tylenol at home with no significant improvement of symptoms. She does not have pain of her back or hip. No foot pain or injury. No numbness or paresthesias. She rates her discomfort a 3/10 at rest and 7/10 with movement. Review of Systems More than 10 systems were reviewed and otherwise negative with the exception of history of present illness. Past Medical/Surgical History Medical Problems: (1) Asthma (2) Calculus Of Kidney (3) Cholecystectomy (4) Chronic obstructive lung disease (5) Diabetes mellitus (6) Hysterectomy (7) Left arm numbness (8) Rotator cuff arthropathy (9) Shortness of breath (10) Sleep apnea (11) SVT (supraventricular tachycardia) Family History Diabetes mellitus Hypertension Kidney stones Social History Smoking Status: Former Smoker Alcohol Use: none Drug Use: none, marijuana Marital Status: Housing Status: lives with family Occupation Status: disabled Current/Historical Medications Scheduled Aspirin (Aspirin Ec), 81 MG PO QAM Atorvastatin (Lipitor), 10 MG PO QPM Cetirizine (Zyrtec), 10 MG PO QAM Cholecalciferol (Vitamin D3), 2,000 UNITS PO QAM Cyanocobalamin (Vitamin B12), 1,000 MCG PO QPM Diltiazem Hcl Coated Beads (Cardizem Cd), 1 CAP PO DAILY Enalapril Maleate (Vasotec), 2.5 MG PO QPM Furosemide (Lasix), 40 MG PO BID Hydroxyzine Hcl (Atarax), 10 MG PO BID Insulin Glargine (Lantus), 80-90 UNITS SC QAM Insulin Lispro (Human) (Humalog), 55 UNITS SC DAILY Lidocaine (Aspercreme W/Lidocaine), 1 APPLN TOP PRN UD Liraglutide (Victoza), 1.8 MCG SQ QPM Metformin Hcl (Glucophage), 1,000 MG PO BIDM Mometasone Furoate-Formoterol (Dulera 200/5 Mcg), 2 PUFFS INH BID Montelukast Sodium (Singulair), 10 MG PO HS Potassium Citrate (Alkalinizer (Potassium Citrate ER), 10 MEQ PO BID Prednisone (Prednisone), 0 PO DAILY Ranitidine (Zantac), 150 MG PO Q12 Scheduled PRN Acetaminophen (Tylenol), 325 MG PO TID PRN for Headache or Pain Benzonatate (Tessalon Perles), 100 MG PO TID PRN for UD Hydrocodone/Homatropine (Hydromet), 5 ML PO HS PRN for PRN Levalbuterol Tartrate (Levalbuterol Tartrate Hfa), 2 PUFFS INH Q6H PRN for Wheezing Nystatin-Triamcinolone (Nystatin/Triamcinolone), 1 APPLN TOP BID PRN for Ondansetron Hcl (Zofran), 4 MG PO Q6 PRN for Nausea Tramadol (Ultram), 50 MG PO QPM PRN for significant low back pain Allergies Coded Allergies: Tetanus Toxoid (Verified Allergy, Unknown, ARM SWELLING ITCHY, 05/28/16) Physical Exam Vital Signs Date Time Temp Pulse Resp B/P Pulse Ox O2 Delivery O2 Flow Rate FiO2 05/28/16 13:32 103 115/80 96 05/28/16 11:37 36.9 117 16 121/79 93 Room Air Pain Rating (0-10): 3.0 Physical Exam VITALS: Vitals are noted on the nurse's note and reviewed by myself. Vital signs stable. GENERAL: Well-developed, well-nourished, obese white female, who is in no acute distress and resting comfortably. Patient is cooperative with the examination. HEAD: Normocephalic atraumatic. HEART: Regular rate and rhythm without murmurs gallops or rubs. LUNGS: Clear to auscultation bilaterally without wheezes, rales or rhonchi. No retractions or accessory muscle use. MUSCULOSKELETAL: No muscle atrophy, erythema, or edema noted. No significant tenderness of left knee appreciated. Negative varus and valgus laxity. Negative anterior posterior drawer. No tenderness of the hip or ankle on the left. NEURO: Patient was alert and oriented to person place and time. CN II through XII grossly intact. Deep tendon reflexes 2+ throughout. Medical Decision & Procedures ER Provider Diagnostic Interpretation: LEFT KNEE 3 VIEWS CLINICAL HISTORY: Left knee pain. Trauma. COMPARISON: None. DISCUSSION: There are postsurgical changes of a total left knee arthroplasty and patellar resurfacing. The distal quadriceps tendon calcifications are visualized. No acute fractures are evident. There are no dislocations. IMPRESSION: Postsurgical change. No acute fractures identified. ED Course Physical exam and history were performed. Nursing notes and EMR were reviewed. Patient appears to have left knee pain for the past 3 weeks. She states that her pain worsened after a fall. X-rays were obtained and do not show acute findings. The patient has ambulatory devices at home and does not need a walker or crutches from here. The patient may use ibuprofen and Tylenol for her discomfort. She has followed with orthopedics in the past and will be referred back to their service. Patient was otherwise invited to return to the ER with any new, worsening, or concerning symptoms. The chart was completed utilizing Perfect Speech Voice Recognition Software. Grammatical errors, random word insertions, pronoun errors, and incomplete sentences are an occasional consequence of this system due to software limitations, ambient noise, and hardware issues. Any formal questions or concerns about the content, text, or information contained within the body of this dictation should be directly addressed to the provider for clarification. . Medical Decision Differential diagnosis includes, but is not limited to: Sprain, strain, fracture , dislocation, and others Impression Primary Impression: Left knee pain Departure Information Dispostion Home / Self-Care Condition GOOD Referrals Suraj Alex, DO Forms HOME CARE DOCUMENTATION FORM, IMPORTANT VISIT INFORMATION Patient Instructions My [facility] Additional Instructions You were seen and evaluated today on an emergency basis only. This is not a substitute for, or an effort to provide, complete comprehensive medical care. It is not possible to recognize and treat all injuries or illnesses in a single emergency department visit. For this reason it is recommended that you followup with orthopedics, Dr. Alex's office, for ongoing care and evaluation. For baseline pain relief you may alternate ibuprofen and acetaminophen every 4 hours for pain control. Take 600 mg ibuprofen (Advil) and then 4 hours later take 1000 mg acetaminophen (Tylenol). Do not take more than 3000 mg acetaminophen in a single day. You are welcome to return to the emergency department anytime with new, worsening, or concerning symptoms.
[2016-06-23] MEDS ORDERED: HYDR0.75 PO (11:56)
[2016-06-23] MEDS ORDERED: BENZ100C84 PO (11:56)
[2016-06-23] MEDS ORDERED: ONDA4TAB46 PO (12:01)
[2016-06-23] MEDS ORDERED: MONT1TAB3 PO (16:13)
[2016-08-24] MEDS ORDERED: METF-384 PO (10:03)
[2016-08-24] MEDS ORDERED: POTA1080 PO (10:03)
[2016-08-24] MEDS ORDERED: INSU100I SC (12:01)
[2016-08-24] MEDS ORDERED: INSDGI SC (12:01)
[2016-08-24] MEDS ORDERED: FERR1TAB62 PO (15:16)
[2016-08-24] MEDS ORDERED: ATOR10TA82 PO (15:19)
== END 2016-05-28 13:30 | disposition home or self-care (01) ==
LOC: C.EDB 11:35 → C.EDD 13:30
DX: M25.562 Pain in left knee (principal); W19.XXXA Unspecified fall, initial encounter; J45.909 Unspecified asthma, uncomplicated; Z87.442 Personal history of urinary calculi; J44.9 Chronic obstructive pulmonary disease, unspecified; E11.9 Type 2 diabetes mellitus without complications; G47.30 Sleep apnea, unspecified; I47.1 Supraventricular tachycardia; Z83.3 Family history of diabetes mellitus; Z82.49 Family history of ischemic heart disease and other diseases of the circulatory system; Z84.1 Family history of disorders of kidney and ureter; Z87.891 Personal history of nicotine dependence; Z79.82 Long term (current) use of aspirin; Z79.4 Long term (current) use of insulin; Z79.52 Long term (current) use of systemic steroids; Z79.899 Other long term (current) drug therapy

== ENCOUNTER 2016-06-23 17:57 | Emergency (ER) | payer OTHER ==
[~2016-06-23] VITALS: Ht 160 cm; Wt 139.0 kg
[~2016-06-23 17:57] MED LIST changes: +BENZ100C84 PO; +HYDR0.75 PO; +MONT1TAB3 PO; +ONDA4TAB46 PO
[2016-06-23 18:02] VITALS: TEMP 36.7; Ht 160 cm; Wt 139.0 kg
[2016-06-23 18:13] VITALS: O2SAT 94
[2016-06-23] MEDS ORDERED: DILT180C PO (18:14)
[2016-06-23] MEDS ORDERED: SODIUM CHLORIDE 0.9% 1000ML 1,000 ML IV STA (18:15)
--- NOTE | 2016-06-23 18:23 | EMERGENCY ROOM VISIT NOTE ---
History Report prepared by Rashida: Clifford Bynum Under the Supervision of: Dr. Nicolas Vizcarra D.O. First contact with patient: 18:05 Chief Complaint: CARDIAC ASSESSMENT Stated Complaint: HEART,BREATHING History of Present Illness The patient is a 60 year old female who presents to the Emergency Room with complaints of her "heart fluttering" and a rapid heart beat throughout the day today. She notes that her heart rate increases significantly when she is up and walking around. The patient states that she has a history of supraventricular tachycardia, but has no history of atrial fibrillation or cardiac disease. She has had a cardiac stress test performed in the past. The patient is also complaining of diarrhea throughout the day today. She has a history of diabetes and asthma. Source of History: patient Onset: Earlier today Position: chest Quality: numbness (Tachycardia) Modifying Factors (Worsening): exertion ((walking)) Associated Symptoms: + diarrhea Review of Systems See HPI for pertinent positives & negatives. A total of 10 systems reviewed and were otherwise negative. Past Medical & Surgical Medical Problems: (1) Asthma (2) Calculus Of Kidney (3) Cholecystectomy (4) Chronic obstructive lung disease (5) Diabetes mellitus (6) Hysterectomy (7) Left arm numbness (8) Rotator cuff arthropathy (9) Shortness of breath (10) Sleep apnea (11) SVT (supraventricular tachycardia) Family History Diabetes mellitus Hypertension Kidney stones Social History Smoking Status: Never Smoker Alcohol Use: none Drug Use: none, marijuana Marital Status: Housing Status: lives with family Occupation Status: disabled Current/Historical Medications Scheduled Aspirin (Aspirin Ec), 81 MG PO QAM Atorvastatin (Lipitor), 10 MG PO QPM Cetirizine (Zyrtec), 10 MG PO QAM Cholecalciferol (Vitamin D3), 2,000 UNITS PO QAM Cyanocobalamin (Vitamin B12), 1,000 MCG PO QPM Diltiazem Hcl Coated Beads (Diltiazem Hcl Er), 180 MG PO DAILY Enalapril Maleate (Vasotec), 2.5 MG PO QPM Furosemide (Lasix), 40 MG PO BID Hydroxyzine Hcl (Atarax), 10 MG PO BID Insulin Glargine (Lantus), 90 UNITS SC QAM Insulin Lispro (Human) (Humalog), 60 UNITS SC DAILY Lidocaine (Aspercreme W/Lidocaine), 1 APPLN TOP PRN UD Liraglutide (Victoza), 1.8 MCG SQ QPM Metformin Hcl (Glucophage), 1,000 MG PO BIDM Mometasone Furoate-Formoterol (Dulera 200/5 Mcg), 2 PUFFS INH BID Montelukast Sodium (Singulair), 10 MG PO HS Potassium Citrate (Alkalinizer (Potassium Citrate ER), 10 MEQ PO BID Prednisone (Prednisone), 0 PO DAILY Ranitidine (Zantac), 150 MG PO Q12 Scheduled PRN Acetaminophen (Tylenol), 325 MG PO TID PRN for Headache or Pain Benzonatate (Tessalon Perles), 100 MG PO TID PRN for UD Hydrocodone/Homatropine (Hydromet), 5 ML PO HS PRN for PRN Levalbuterol Tartrate (Levalbuterol Tartrate Hfa), 2 PUFFS INH Q6H PRN for Wheezing Nystatin-Triamcinolone (Nystatin/Triamcinolone), 1 APPLN TOP BID PRN for Ondansetron Hcl (Zofran), 4 MG PO Q6 PRN for Nausea Tramadol (Ultram), 50 MG PO QPM PRN for significant low back pain Allergies Coded Allergies: Tetanus Toxoid (Verified Allergy, Unknown, ARM SWELLING ITCHY, 05/28/16) Physical Exam Vital Signs Date Time Temp Pulse Resp B/P Pulse Ox O2 Delivery O2 Flow Rate FiO2 06/23/16 19:33 90 06/23/16 19:30 114/74 06/23/16 19:27 85 20 91 06/23/16 19:18 150 06/23/16 19:01 96/64 06/23/16 18:57 93 21 93 06/23/16 18:32 99 18 118/69 95 Room Air 06/23/16 18:30 118/69 06/23/16 18:27 106 22 94 06/23/16 18:18 94 Room Air 06/23/16 18:18 96 06/23/16 18:13 122/77 06/23/16 18:13 94 Room Air 06/23/16 18:02 36.7 91 20 122/58 95 Room Air Physical Exam GENERAL: Patient is awake, alert, and in no acute distress. Patient is resting comfortably and showing no signs of anxiety EYES: The conjunctivae are clear. The pupils are round and reactive. EARS, NOSE, MOUTH AND THROAT: The nose is without any evidence of any deformity. Mucous membranes are moist tongue is midline NECK: The neck is nontender and supple. RESPIRATORY: Normal respiratory effort is noted there is no evidence of wheezing rhonchi or rales CARDIOVASCULAR: Regular rate and rhythm noted there no murmurs rubs or gallops normal S1 normal S2 GASTROINTESTINAL: The abdomen is soft. Bowel sounds are present in all quadrants. Abdomen is nontender MUSCULOSKELETAL/EXTREMITIES: There is no evidence of gross deformity full range of motion is noted in the hips and shoulders SKIN: There is no obvious evidence of any rash. There are no petechiae, pallor or cyanosis noted. NEUROLOGIC: Patient is awake alert and oriented x3. Medical Decision & Procedures ER Provider Diagnostic Interpretation: Radiology results as stated below per my review and radiologist interpretation: CHEST ONE VIEW PORTABLE HISTORY: palpitations COMPARISON: Chest 04/15/2016. FINDINGS: No pleural effusions. No pneumothorax. Chronic elevation the right hemidiaphragm. Right shoulder prosthesis. The heart is stable in size. Right basilar linear densities favor subsegmental atelectasis or scarring. This remains unchanged. No new focal lung consolidations. No evidence for pulmonary edema. IMPRESSION: No significant change compared to the prior study. No acute process. Electronically signed by: Ace Tinajero M.D. 06/23/2016 7:11 PM Dictated Date/Time: 06/23/2016 7:11 PM Laboratory Results 06/23/16 18:25 Red Blood Count 4.69, Mean Corpuscular Volume 77.4, Mean Corpuscular Hemoglobin 24.1, Mean Corpuscular Hemoglobin Concent 31.1, Mean Platelet Volume 9.9, Neutrophils (%) (Auto) 67.2, Lymphocytes (%) (Auto) 23.2, Monocytes (%) (Auto) 7.3, Eosinophils (%) (Auto) 1.6, Basophils (%) (Auto) 0.5, Neutrophils # (Auto) 7.77, Lymphocytes # (Auto) 2.69, Monocytes # (Auto) 0.84, Eosinophils # (Auto) 0.19, Basophils # (Auto) 0.06 06/23/16 18:25 Test 5/14/17 18:25 06/23/16 18:51 White Blood Count 11.57 K/uL (4.8-10.8) Red Blood Count 4.69 M/uL (4.2-5.4) Hemoglobin 11.3 g/dL (12.0-16.0) Hematocrit 36.3 % (37-47) Mean Corpuscular Volume 77.4 fL (80-100) Mean Corpuscular Hemoglobin 24.1 pg (25-34) Mean Corpuscular Hemoglobin Concent 31.1 g/dl (32-36) Platelet Count 247 K/uL (130-400) Mean Platelet Volume 9.9 fL (7.4-10.4) Neutrophils (%) (Auto) 67.2 % Lymphocytes (%) (Auto) 23.2 % Monocytes (%) (Auto) 7.3 % Eosinophils (%) (Auto) 1.6 % Basophils (%) (Auto) 0.5 % Neutrophils # (Auto) 7.77 K/uL (1.4-6.5) Lymphocytes # (Auto) 2.69 K/uL (1.2-3.4) Monocytes # (Auto) 0.84 K/uL (0.11-0.59) Eosinophils # (Auto) 0.19 K/uL (0-0.5) Basophils # (Auto) 0.06 K/uL (0-0.2) RDW Standard Deviation 48.3 fL (36.4-46.3) RDW Coefficient of Variation 17.0 % (11.5-14.5) Immature Granulocyte % (Auto) 0.2 % Immature Granulocyte # (Auto) 0.02 K/uL (0.00-0.02) Prothrombin Time 10.2 SECONDS (9.0-12.0) Prothromb Time International Ratio 1.0 (0.9-1.1) Activated Partial Thromboplast Time 27.1 SECONDS (21.0-31.0) Partial Thromboplastin Ratio 1.0 Anion Gap 7.0 mmol/L (3-11) Est Creatinine Clear Calc Drug Dose 117.0 ml/min Estimated GFR () 107.0 Estimated GFR (Non- 92.3 BUN/Creatinine Ratio 16.0 (10-20) Calcium Level 8.7 mg/dl (8.5-10.1) Magnesium Level 1.9 mg/dl (1.8-2.4) Total Bilirubin 0.2 mg/dl (0.2-1) Direct Bilirubin < 0.1 mg/dl (0-0.2) Aspartate Amino Transf (AST/SGOT) 15 U/L (15-37) Alanine Aminotransferase (ALT/SGPT) 24 U/L (12-78) Alkaline Phosphatase 61 U/L (45-117) Total Creatine Kinase 102 U/L (26-192) Creatine Kinase MB 1.0 ng/ml (0.5-3.6) Creatine Kinase MB Ratio 1.0 (0-3.0) Troponin I < 0.015 ng/ml (0-0.045) Total Protein 7.3 gm/dl (6.4-8.2) Albumin 3.2 gm/dl (3.4-5.0) Lipase 191 U/L (73-393) Urine Color YELLOW Urine Appearance CLEAR (CLEAR) Urine pH 7.0 (4.5-7.5) Urine Specific [place] 1.018 (1.000-1.030) Urine Protein NEG (NEG) Urine Glucose (UA) NEG (NEG) Urine Ketones NEG (NEG) Urine Occult Blood NEG (NEG) Urine Nitrite NEG (NEG) Urine Bilirubin NEG (NEG) Urine Urobilinogen NEG (NEG) Urine Leukocyte Esterase TRACE (NEG) Urine WBC (Auto) 1-5 /hpf (0-5) Urine RBC (Auto) 0-4 /hpf (0-4) Urine Hyaline Casts (Auto) 0 /lpf (0-5) Urine Epithelial Cells (Auto) >30 /lpf (0-5) Urine Bacteria (Auto) NEG (NEG) Laboratory results per my review. Medications Administered Medications (Trade) Dose Ordered Sig/Neida Route Start Time Stop Time Status Last Admin Dose Admin Sodium Chloride (Nss 1000ml) 1,000 ml @ 999 mls/hr Q1H1M STAT IV 06/23/16 18:15 06/23/16 19:15 DC 06/23/16 18:31 999 MLS/HR ECG Indication: palpitations, tachycardia Rate (beats per minute): 97 Rhythm: normal sinus Findings: RBBB, no ectopy Comparison ECG Date: 04/15/2016 Change: no significant change ED Course 1810: The patient was evaluated in room B6. A complete history and physical examination were performed. 1814: Ordered Sodium Chloride 1000 mL @ 999 mL/hr IV. 1921: I checked on the patient at this time. I observed the patient monitor, she seems to be having a-flutter or a-fib. 1926: I discussed the case with Dr. Lavelle ALLEN Cardiology at this time. 1942: Upon reevaluation, the patient is resting in bed. I discussed the results and treatment plan with her. She verbalized agreement of the treatment plan. The patient was discharged home. Medical Decision Differential diagnosis: Etiologies such as premature contractions, electrolyte abnormality, cardiac dysrhythmia, thyroid dysfunction, pulmonary embolism, infection, gastrointestinal, as well as others were entertained. Nursing notes reviewed. The patient's recent admission to our facility from February this year was also reviewed. The patient is a 60-year-old female who presented to the emergency department for an evaluation palpitations. The patient states that she has had similar episodes in the past. She was seen in our facility at the beginning of the year and had a cardiac workup including an echocardiogram. At that time she had episodes of what was thought to be SVT at approximately 150 beats per minute. The patient initially was in normal sinus rhythm with no change from her previous EKG but she started having episodes of SVT in the emergency department. I discussed patient's laboratory and radiographic studies with her. This appears to be a similar episode to what she was seen previously for a review the patient's cardiology consultation states that she was thought to have SVT and was felt to be in need of an electrophysiology study if symptoms continued. I discussed her case with the on-call staff engineer. At this time I refer the patient to her primary staff engineer tomorrow with the help of the emergency department case management assistant's. She was encouraged to continue all medications as prescribed. I told her that it was possible she may need a change in her medications and possibly switch to a beta ruma or possibly an EP study to see if anything would be amenable to ablation. She was encouraged to continue all medications as prescribed and rest. She was also encouraged to follow-up with the staff engineer as scheduled and return to the emergency department immediately if symptoms change worsen or the need arises. Consults Time Called: 1920 Consulting Physician: Dr. Lavelle ALLEN Cardiology Returned Call: 1926 I discussed the case with Dr. Lavelle ALLEN Cardiology at this time. Impression Primary Impression: Palpitations Additional Impression: SVT (supraventricular tachycardia) Scribe Attestation The scribe's documentation has been prepared under my direction and personally reviewed by me in its entirety. I confirm that the note above accurately reflects all work, treatment, procedures, and medical decision making performed by me. Departure Information Dispostion Home / Self-Care Referrals RV. Patterson MD (PCP) Forms IMPORTANT VISIT INFORMATION Patient Instructions My [facility] Additional Instructions Continue all medications as prescribed. Rest and avoid any strenuous activities. Follow-up with your staff engineer this week as scheduled. Return to the emergency department if symptoms worsen or if need arises. Problem Qualifiers
[2016-06-23 18:40] LABS: BASO % 0.5 %; BASO ABS # 0.06 K/uL (0-0.2); COMPLETE YES; EOS % 1.6 %; HEMATOCRIT 36.3 % (37-47); IG% 0.2 %; LYMPH % 23.2 %; LYMPH ABS # 2.69 K/uL (1.2-3.4); MEAN CELL VOLUME 77.4 fL (80-100); MEAN CORPUSCULAR HEMOGLOBIN 24.1 pg (25-34); MEAN CORPUSCULAR HGB CONC 31.1 g/dl (32-36); MEAN PLATELET VOLUME 9.9 fL (7.4-10.4); MONO % 7.3 %; NEUT % 67.2 %; PLATELET COUNT 247 K/uL (130-400); RED BLOOD COUNT 4.69 M/uL (4.2-5.4); WHITE BLOOD COUNT 11.57 K/uL (4.8-10.8)
[2016-06-23 18:47] LABS: PROTHROMBIN TIME (PATIENT) 10.2 SECONDS (9.0-12.0)
[2016-06-23 18:52] LABS: ALT/SGPT 24 U/L (12-78); AST/SGOT 15 U/L (15-37); BLOOD UREA NITROGEN 12 mg/dl (7-18); CALCIUM 8.7 mg/dl (8.5-10.1); CARBON DIOXIDE 30 mmol/L (21-32); CHLORIDE 101 mmol/L (98-107); CREATININE 0.72 mg/dl (0.60-1.20); GLUCOSE 90 mg/dl (70-99); MAGNESIUM 1.9 mg/dl (1.8-2.4); POTASSIUM 4.1 mmol/L (3.5-5.1); SODIUM 138 mmol/L (136-145)
[2016-06-23 18:55] LABS: ALKALINE PHOSPHATASE 61 U/L (45-117)
[2016-06-23 19:04] LABS: URINE APPEARANCE CLEAR (CLEAR); URINE BILIRUBIN NEG (NEG); URINE COLOR YELLOW; URINE EPITHELIAL CELL AUTO >30 /lpf (0-5); URINE NITRITE NEG (NEG); URINE SPECIFIC GRAVITY 1.018 (1.000-1.030); UROBILINOGEN NEG (NEG)
[2016-06-23 19:06] LABS: MANUAL MICROSCOPIC REQUIRED? NO; REVIEW REQ? NO
--- NOTE | 2016-06-23 19:13 | DIAGNOSTIC IMAGING REPORT ---
CHEST ONE VIEW PORTABLE HISTORY: palpitations COMPARISON: Chest 04/15/2016. FINDINGS: No pleural effusions. No pneumothorax. Chronic elevation the right hemidiaphragm. Right shoulder prosthesis. The heart is stable in size. Right basilar linear densities favor subsegmental atelectasis or scarring. This remains unchanged. No new focal lung consolidations. No evidence for pulmonary edema. IMPRESSION: No significant change compared to the prior study. No acute process. Electronically signed by: Ace Tinajero M.D. 06/23/2016 7:11 PM Dictated Date/Time: 06/23/2016 7:11 PM
[2016-06-23] MEDS ORDERED: LIRA18IN SQ (19:21)
[2016-06-23 19:35] VITALS: BP 109/57; PULSE 90; O2SAT 93
[2016-06-23] MEDS ORDERED: NYSTCRE32 TOP (19:36)
[2016-06-23] MEDS ORDERED: CYAN100020 PO (19:38)
[2016-06-23] MEDS ORDERED: HYDR-389 PO (19:39)
[2016-06-23] MEDS ORDERED: ZNTT/150 PO (21:20)
[2016-06-23] MEDS ORDERED: TRAM-10 PO (21:20)
[2016-06-23] MEDS ORDERED: CHOL20005 PO (21:22)
[2016-06-23] MEDS ORDERED: ASPI81TA28 PO (23:09)
[2016-06-23] MEDS ORDERED: ENAL1TAB29 PO (23:58)
[2016-08-24] MEDS ORDERED: POTA1080 PO (10:03)
[2016-08-24] MEDS ORDERED: METF-384 PO (10:03)
[2016-08-24] MEDS ORDERED: INSDGI SC (12:01)
[2016-08-24] MEDS ORDERED: INSU100I SC (12:01)
[2016-08-24] MEDS ORDERED: FERR1TAB62 PO (15:16)
[2016-08-24] MEDS ORDERED: ATOR10TA82 PO (15:19)
== END 2016-06-23 20:05 | disposition home or self-care (01) ==
LOC: C.EDB 17:58
DX: R00.2 Palpitations (principal); I47.1 Supraventricular tachycardia; R19.7 Diarrhea, unspecified; I45.10 Unspecified right bundle-branch block; E11.9 Type 2 diabetes mellitus without complications; J45.909 Unspecified asthma, uncomplicated; J44.9 Chronic obstructive pulmonary disease, unspecified; G47.30 Sleep apnea, unspecified; F12.90 Cannabis use, unspecified, uncomplicated; Z87.442 Personal history of urinary calculi; Z90.710 Acquired absence of both cervix and uterus; Z79.82 Long term (current) use of aspirin; Z79.4 Long term (current) use of insulin; Z79.84 Long term (current) use of oral hypoglycemic drugs; Z83.3 Family history of diabetes mellitus; Z82.49 Family history of ischemic heart disease and other diseases of the circulatory system; Z84.1 Family history of disorders of kidney and ureter

== ENCOUNTER 2016-07-11 19:59 | Emergency (ER) | payer OTHER ==
[~2016-07-11] VITALS: Ht 160 cm; Wt 140.0 kg
[~2016-07-11 19:59] MED LIST changes: +ASPI81TA28 PO; +CHOL20005 PO; -CRDCD/180 PO; +CYAN100020 PO; +DILT180C PO; +ENAL1TAB29 PO; +HYDR-389 PO; +NYSTCRE32 TOP; +TRAM-10 PO; +ZNTT/150 PO
[2016-07-11 20:07] VITALS: Ht 160 cm; Wt 140.0 kg
[2016-07-11] MEDS ORDERED: TRAMADOL HCL 50 MG TAB PO STA (20:34)
--- NOTE | 2016-07-11 20:38 | EMERGENCY ROOM VISIT NOTE ---
ED Visit Note First contact with patient: 20:30 CHIEF COMPLAINT: Left Foot pain HISTORY OF PRESENT ILLNESS: This 60-year-old female patient presents to the emergency department female wheelchair, approximately one hour after sustaining an injury to the left foot. Patient is currently complaining of swelling and pain in the left foot foot at rest and worse with weight bearing. The patient states her son was pushing her in a wheelchair at supper this evening, when they were stopped so she put her feet on the ground and not in the foot rest. She states her son began pushing her without her knowledge, and her foot stayed planted while the wheelchair moved forward. Her foot hyperextended with the toe planted on the ground and she is now experiencing discomfort, dorsal aspect of her left foot. The patient rates the pain as "pins and needles" and 8/10. The patient has not had any relief of the pain, and has not taken any medication for the discomfort. The patient is not able to walk due to pain. Weakness noted to left foot, secondary to pain. No numbness. No ankle pain. There are no lacerations of the foot. The patient is able to move all of their toes and their ankle with minimal pain. No previous fracture to this foot. REVIEW OF SYSTEMS: GENERAL: A 6 system review of systems was completed with positives and pertinent negatives in the HPI. ALLERGIES: Tetanus MEDICATIONS: See list. PMH: Diabetes, COPD, chronic low back pain, hyperlipidemia SOCIAL HISTORY: Pt. lives locally with her family. She admits to drinking an occasional beer once in awhile. She does admit to marijuana use d/t chronic LBP , but has not smoked in over a month because she is due to have lab work completed next week. PHYSICAL EXAM: Vital Signs: Reviewed Nurse's notes, vital signs stable. GENERAL : 60-year-old female presents in a wheelchair, in no acute distress, but appears in pain, well-developed, well-nourished. MUSCULOSKELATAL: There is no visual deformity of the left foot. There is no erythema or ecchymosis. There is no warmth. There is tenderness and swelling over the dorsal aspect of the left foot, in the area of the 2nd metacarpal bones. There is no tenderness over the lateral or medial malleolus. No tenderness of the tib/fib. The range of motion of the left foot, ankle, toes is if acutely limited secondary to pain. There is no tenderness over the plantar fascia. The skin is intact and there are no lacerations or puncture wounds. Dorsalis pedis pulse 2+. Capillary refill less than 2 seconds. EMERGENCY DEPARTMENT COURSE: I examined the patient. An X-ray of the left foot was reviewed by myself and Dr. Tinajero and reveals FINDINGS: There is no fracture or dislocation. The bones are slightly osteopenic. Mild dorsal soft tissue swelling which has improved. Plantar and posterior calcaneal spurs. Mild osteoarthritis at the first MTP joint. No radiopaque foreign bodies. IMPRESSION: No fractures.. The patient was placed in an Tucker wrap and advised to use her home wheelchair and walker. The patient was discharged home in good condition. DIAGNOSIS: Foot pain TREATMENT: Ice and elevation for 24-48 hrs. Tylenol 1000 mg every 6 hours for the pain. Avoid weight bearing and use home walker and wheelchair. Follow up with family doctor or orthopedic surgeon if symptoms persist in 5-7 days. Problem List Medical Problems: (1) Asthma Status: Chronic (2) Cholecystectomy Status: Resolved (3) Chronic obstructive lung disease Status: Chronic (4) Diabetes mellitus Status: Chronic (5) Hysterectomy Status: Resolved (6) Sleep apnea Status: Chronic Current/Historical Medications Scheduled Aspirin (Aspirin Ec), 81 MG PO QAM Atorvastatin (Lipitor), 10 MG PO QPM Cetirizine (Zyrtec), 10 MG PO QAM Cholecalciferol (Vitamin D3), 2,000 UNITS PO QAM Cyanocobalamin (Vitamin B12), 1,000 MCG PO QPM Diltiazem Hcl Coated Beads (Diltiazem Hcl Er), 180 MG PO DAILY Enalapril Maleate (Vasotec), 2.5 MG PO QPM Furosemide (Lasix), 40 MG PO BID Hydroxyzine Hcl (Atarax), 10 MG PO BID Insulin Glargine (Lantus), 90 UNITS SC QAM Insulin Lispro (Human) (Humalog), 60 UNITS SC DAILY Lidocaine (Aspercreme W/Lidocaine), 1 APPLN TOP PRN UD Liraglutide (Victoza), 1.8 MCG SQ QPM Metformin Hcl (Glucophage), 1,000 MG PO BIDM Mometasone Furoate-Formoterol (Dulera 200/5 Mcg), 2 PUFFS INH BID Montelukast Sodium (Singulair), 10 MG PO HS Potassium Citrate (Alkalinizer (Potassium Citrate ER), 10 MEQ PO BID Ranitidine (Zantac), 150 MG PO Q12 Scheduled PRN Acetaminophen (Tylenol), 325 MG PO TID PRN for Headache or Pain Benzonatate (Tessalon Perles), 100 MG PO TID PRN for UD Homeopathic Products (Leg Cramp Relief), 3 TABS PO TID PRN for LEG CRAMPS Hydrocodone/Homatropine (Hydromet), 5 ML PO HS PRN for PRN Levalbuterol Tartrate (Levalbuterol Tartrate Hfa), 2 PUFFS INH Q6H PRN for Wheezing Nystatin-Triamcinolone (Nystatin/Triamcinolone), 1 APPLN TOP BID PRN for Ondansetron Hcl (Zofran), 4 MG PO Q6 PRN for Nausea Tramadol (Ultram), 50 MG PO QPM PRN for significant low back pain Allergies Coded Allergies: Tetanus Toxoid (Verified Allergy, Unknown, ARM SWELLING ITCHY, 05/28/16) Vital Signs Date Time Temp Pulse Resp B/P (MAP) Pulse Ox O2 Delivery O2 Flow Rate FiO2 07/11/16 21:41 70 20 136/70 98 07/11/16 20:07 96 18 131/67 93 Room Air Medications Administered Medications (Trade) Dose Ordered Sig/Neida Route Start Time Stop Time Status Last Admin Dose Admin Tramadol HCl (Ultram Tab) 50 mg NOW STAT PO 07/11/16 20:34 07/11/16 20:36 DC 07/11/16 20:50 50 MG Departure Information Impression Primary Impression: Left foot pain Dispostion Home / Self-Care Condition GOOD Referrals RV. Patterson MD (PCP) Patient Instructions My [facility] Additional Instructions ORTHOPEDIC INSTRUCTIONS: DO NOT drive, drink alcohol, operate machinery, or perform dangerous activities today. You were given medications in the ER that can affect your ability to safely function or operate a vehicle. Ibuprofen(Motrin, Advil) may be used for fever or pain. Use 600mg every six hours as needed. Take with food. Avoid using more than 2400mg in a 24 hour period. Do not use 2400mg per day for more than three consecutive days without physician direction. Prolonged inappropriate use can lead to stomach upset or ulcers. (AND/OR) Acetaminophen(Tylenol) may be used for fever or pain. Use 1000mg every six hours as needed. Avoid using more than 4000mg in a 24 hour period. Ice compresses for 20 minutes at a time four times daily for 2-3 days. Use your home wheelchair and walker. Rest and elevate your injury. If your wrap feels excessively tight, you have worsening pain, develop numbness or tingling, or your digits appear blue, loosen the tucker wrap. Then reapply the tucker wrap gently.. If your symptoms are not quickly relieved return to the ER for re-evaluation. Return to the ER immediately for any numbness, tingling, severe pain, extreme swelling in the extremity or as needed. Follow-up with your primary care physician in 2 to 3 days for a recheck of your current condition.
--- NOTE | 2016-07-11 21:08 | DIAGNOSTIC IMAGING REPORT ---
LEFT FOOT 3 VIEWS HISTORY: Left foot pain COMPARISON: Left foot 04/06/2015. FINDINGS: There is no fracture or dislocation. The bones are slightly osteopenic. Mild dorsal soft tissue swelling which has improved. Plantar and posterior calcaneal spurs. Mild osteoarthritis at the first MTP joint. No radiopaque foreign bodies. IMPRESSION: No fractures. Electronically signed by: Ace Tinajero M.D. 07/11/2016 9:07 PM Dictated Date/Time: 07/11/2016 9:05 PM
[2016-07-11 21:41] VITALS: BP 136/70; PULSE 70; O2SAT 98
[2016-08-24] MEDS ORDERED: METF-384 PO (10:03)
[2016-08-24] MEDS ORDERED: POTA1080 PO (10:03)
[2016-08-24] MEDS ORDERED: INSDGI SC (12:01)
[2016-08-24] MEDS ORDERED: INSU100I SC (12:01)
[2016-08-24] MEDS ORDERED: FERR1TAB62 PO (15:16)
[2016-08-24] MEDS ORDERED: ATOR10TA82 PO (15:19)
== END 2016-07-11 21:42 | disposition home or self-care (01) ==
LOC: C.EDB 20:00 → C.EDD 21:42
DX: M79.672 Pain in left foot (principal); X50.1XXA Overexertion from prolonged static or awkward postures, initial encounter; E11.9 Type 2 diabetes mellitus without complications; J44.9 Chronic obstructive pulmonary disease, unspecified; M54.5 Low back pain; G89.29 Other chronic pain; E78.5 Hyperlipidemia, unspecified; J45.909 Unspecified asthma, uncomplicated; G47.30 Sleep apnea, unspecified; Z79.82 Long term (current) use of aspirin; Z79.4 Long term (current) use of insulin; Z79.899 Other long term (current) drug therapy

== ENCOUNTER → 2016-07-12 | Outpatient (CLI) | payer OTHER ==
[~2016-07-12] MED LIST changes: +ACET-1311 PO; +ASPI-461 PO; +ATOR10TA82 PO; +ATR10 PO; +CETI10TA84 PO; +CHOL2000 PO; +CYAN10004 PO; +DLTCD/240 PO; +ENAL2.5T PO; +FERR1TAB62 PO; +FRS/40 PO; +HOME1TAB18 PO; +INSDGI SC; +INSU100I SC; +LIRA18IN SQ; +METF-384 PO; +MOME200A INH; +OXYC1TAB3 PO; +POTA1080 PO; -PRED20TA PO; +RANI300T PO; +RHNAQIN NAE; +SNG10 PO
[2016-07-12 13:15] LABS: BASO % 0.5 %; BASO ABS # 0.04 K/uL (0-0.2); COMPLETE YES; EOS % 1.4 %; HEMATOCRIT 38.3 % (37-47); IG% 0.2 %; LYMPH % 28.5 %; MEAN CELL VOLUME 77.7 fL (80-100); MEAN CORPUSCULAR HEMOGLOBIN 23.9 pg (25-34); MEAN CORPUSCULAR HGB CONC 30.8 g/dl (32-36); MEAN PLATELET VOLUME 9.5 fL (7.4-10.4); MONO % 8.3 %; NEUT % 61.1 %; PLATELET COUNT 237 K/uL (130-400); RED BLOOD COUNT 4.93 M/uL (4.2-5.4); WHITE BLOOD COUNT 8.78 K/uL (4.8-10.8)
--- NOTE | 2016-07-12 13:37 | DIAGNOSTIC IMAGING REPORT ---
KUB CLINICAL HISTORY: Nephrolithiasis. COMPARISON STUDY: KUB April 19, 2016. FINDINGS: There are cholecystectomy clips. Bowel gas pattern is normal. No urinary calculi are identified. Pelvic calcifications represent phleboliths. IMPRESSION: 1. No urinary calculi identified. 2. No evidence for a bowel obstruction. Electronically signed by: Ángel Garcia M.D. 07/12/2016 1:36 PM Dictated Date/Time: 07/12/2016 1:33 PM
[2016-07-12 14:04] LABS: ALT/SGPT 19 U/L (12-78); BLOOD UREA NITROGEN 8 mg/dl (7-18); BUN/CREATININE RATIO 16.3 (10-20); CALCIUM 8.9 mg/dl (8.5-10.1); CARBON DIOXIDE 28 mmol/L (21-32); CHLORIDE 104 mmol/L (98-107); CHOLESTEROL 141 mg/dl (0-200); CREATININE 0.51 mg/dl (0.60-1.20); GLUCOSE 80 mg/dl (70-99); POTASSIUM 3.7 mmol/L (3.5-5.1); SODIUM 141 mmol/L (136-145)
[2016-07-12 14:07] LABS: ESTIMATED AVERAGE GLUCOSE 163 mg/dl; HA1C FLAG Normal (Normal)
[2016-07-12 14:15] LABS: ALB/GLOB RATIO 0.7 (0.9-2); ALKALINE PHOSPHATASE 65 U/L (45-117); AST/SGOT 11 U/L (15-37); HDL CHOLESTEROL 35 mg/dl; LDL CHOLESTEROL CALCULATED 60 mg/dl; TRIGLYCERIDES 229 mg/dl (0-150); VERY LOW DENSITY LIPOPROT CALC 46 mg/dl
== END | disposition home or self-care (01) ==
LOC: C.RAD 12:03
PROVIDERS: ATTEND Nurse Practitioner Family
DX: N20.0 Calculus of kidney (principal); E11.8 Type 2 diabetes mellitus with unspecified complications; D72.829 Elevated white blood cell count, unspecified

== ENCOUNTER 2016-07-27 17:41 | Emergency (ER) | payer OTHER ==
[~2016-07-27] VITALS: Ht 160 cm; Wt 140.0 kg
[~2016-07-27 17:41] MED LIST changes: -ACET-1311 PO; -ASPI-461 PO; -ATOR10TA82 PO; -ATR10 PO; -CETI10TA84 PO; -CHOL2000 PO; -CYAN10004 PO; -DLTCD/240 PO; -ENAL2.5T PO; -FERR1TAB62 PO; -FRS/40 PO; -HOME1TAB18 PO; -INSDGI SC; -INSU100I SC; -LIRA18IN SQ; -METF-384 PO; -MOME200A INH; -OXYC1TAB3 PO; -POTA1080 PO; -RANI300T PO; -RHNAQIN NAE; -SNG10 PO
[2016-07-27 17:49] VITALS: TEMP 36.7; Ht 160 cm; Wt 140.0 kg
[2016-07-27] MEDS ORDERED: SODIUM CHLORIDE 0.9% 1000ML 1,000 ML IV STA (18:07)
[2016-07-27] MEDS ORDERED: RHNAQIN NAE (18:11)
--- NOTE | 2016-07-27 18:14 | EMERGENCY ROOM VISIT NOTE ---
History Report prepared by Rashida: Bhaskar Lucas Under the Supervision of: Dr. Suraj Mota M.D. First contact with patient: 18:00 Chief Complaint: PALPITATIONS Stated Complaint: L SHOULDER AND NECK PAIN, HEART PALPATATIONS Nursing Triage Summary: pt states "my heart has been fluttering for the past 3 days." pt denies chest pain but c/o SOB pt states she fell 4 days ago and is also c/o left shoulder and neck pain. History of Present Illness The patient is a 61 year old female who presents to the Emergency Room with complaints of intermittent heart palpitations beginning three days ago. The patient states that she thought her palpitations would go away but they have not. She reports that she has had symptoms like this before. The patient notes that she lost her balance and fell three days ago. She states that her shoulder hit the wall and currently hurts. The patient reports that her shoulder pain is now radiating to back of her neck. She notes that she also has shortness of breath, diarrhea, and a sorethroat. The patient denies loss of consciousness, chest pain, nausea, vomiting, fever, and chills. She also denies a history of changing her medications, running out of medications, and taking blood thinners other than an 81mg aspirin. 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 She denies a history of thyroid disease. Source of History: patient Onset: three days ago Position: chest Quality: other (palpitations) Timing: intermittent Associated Symptoms: + sorethroat, + neck pain, + SOB, + diarrhea, No LOC, No fevers, No chills, No chest pain, No nausea, No vomiting Note: Associated symptoms shoulder pain Review of Systems .See HPI for pertinent positives & negatives. A total of 10 systems reviewed and were otherwise negative. Past Medical & Surgical Medical Problems: (1) Asthma (2) Calculus Of Kidney (3) Cholecystectomy (4) Chronic obstructive lung disease (5) Diabetes mellitus (6) Hysterectomy (7) Left arm numbness (8) Rotator cuff arthropathy (9) Shortness of breath (10) Sleep apnea (11) SVT (supraventricular tachycardia) Old medical records were reviewed. Nurse's notes were reviewed and I agree with. Family History Diabetes mellitus Hypertension Kidney stones Social History Smoking Status: Former Smoker Alcohol Use: none Drug Use: none, marijuana Marital Status: Housing Status: lives with family Occupation Status: disabled Current/Historical Medications Scheduled Aspirin (Aspirin Ec), 81 MG PO QAM Atorvastatin (Lipitor), 10 MG PO QPM Budesonide (Rhinocort Aqua), 1 SPRAY DONY BID Cetirizine (Zyrtec), 10 MG PO QAM Cholecalciferol (Vitamin D3), 2,000 UNITS PO QAM Cyanocobalamin (Vitamin B12), 1,000 MCG PO QPM Diltiazem Hcl (Diltiazem Cd), 240 MG PO QAM Enalapril Maleate (Vasotec), 2.5 MG PO QPM Furosemide (Lasix), 40 MG PO BID Hydroxyzine Hcl (Atarax), 10 MG PO BID Insulin Glargine (Lantus), 90 UNITS SC QAM Insulin Lispro (Human) (Humalog), 1 DOSE SC DAILY Lidocaine (Aspercreme W/Lidocaine), 1 APPLN TOP PRN UD Liraglutide (Victoza), 1.8 MCG SQ QPM Metformin Hcl (Glucophage), 1,000 MG PO BIDM Mometasone Furoate-Formoterol (Dulera 200/5 Mcg), 2 PUFFS INH BID Montelukast Sodium (Singulair), 10 MG PO HS Potassium Citrate (Alkalinizer (Potassium Citrate ER), 10 MEQ PO BID Ranitidine (Zantac), 150 MG PO BID Scheduled PRN Acetaminophen (Tylenol), 325 MG PO TID PRN for Headache or Pain Homeopathic Products (Leg Cramp Relief), 3 TABS PO TID PRN for LEG CRAMPS Nystatin-Triamcinolone (Nystatin/Triamcinolone), 1 APPLN TOP BID PRN for Tramadol (Ultram), 50 MG PO Q12 PRN for significant low back pain Allergies Coded Allergies: Tetanus Toxoid (Verified Allergy, Unknown, ARM SWELLING ITCHY, 07/27/16) Physical Exam Vital Signs Date Time Temp Pulse Resp B/P (MAP) Pulse Ox O2 Delivery O2 Flow Rate FiO2 07/27/16 20:08 78 18 122/55 97 07/27/16 19:31 99 07/27/16 19:26 90 20 94 Room Air 07/27/16 17:53 95 Room Air 07/27/16 17:49 36.7 101 24 107/64 95 Room Air Physical Exam General: Well developed well nourished in no acute distress, breathing comfortably on room air. Normal speech. Non-ill appearing HEENT: Normal cephalic atraumatic. Pupils are equal round and reactive to light. Extraocular movements are intact. Oropharynx is pink with moist mucous membranes. No swelling of the mouth lips or tongue. Neck: Supple with a midline trachea. No meningeal signs or stiffness, no JVD or bruits. No Stridor. Chest: Clear to auscultation bilaterally. No wheezes or rhonchi. No increased work of breathing. Heart: regular rate and rhythm. Abdomen: Soft nontender, nondistended without rebound guarding or rigidity. Extremities: No cyanosis clubbing or edema. No calf tenderness or assymetry Spine/Back. Non tender to palpation. No CVA tenderness Skin: Good turgor without rashes. Neurologic exam: Cranial nerves two through 12 are intact. Motor and sensation are intact and symmetrical throughout. Medical Decision & Procedures ER Provider Diagnostic Interpretation: X-ray results as stated below per interpretation by me and the radiologist: LEFT SHOULDER MIN 2 VIEWS ROUTINE CLINICAL HISTORY: left shoulder pain pain COMPARISON: None. DISCUSSION: Moderate generalized degenerative change. No acute bony abnormality. There is no evidence for soft tissue swelling. IMPRESSION: Moderate generalized degenerative change. No acute bony abnormality. Electronically signed by: Artis Koehler M.D. 07/27/2016 7:18 PM Dictated Date/Time: 07/27/2016 7:18 PM My interpretations: no dislocation or fracture seen CHEST 1 VW FRONT-NOT PORTABLE CLINICAL HISTORY: HEART PALP DANIEL ESME NS/LT SHOULDER PAIN pain COMPARISON STUDY: 06/23/2016 FINDINGS: Chronic elevation right hemidiaphragm. Lungs are clear. IMPRESSION: No acute process. Electronically signed by: Artis Koehler M.D. 07/27/2016 7:19 PM Dictated Date/Time: 07/27/2016 7:19 PM Chest x-ray per my interpretation reveals no pneumothorax, failure, or infiltrate, elevation of the right hemidiaphragm Laboratory Results 07/27/16 18:40 Red Blood Count 4.74, Mean Corpuscular Volume 78.7, Mean Corpuscular Hemoglobin 25.1, Mean Corpuscular Hemoglobin Concent 31.9, Mean Platelet Volume 9.9, Neutrophils (%) (Auto) 65.4, Lymphocytes (%) (Auto) 24.6, Monocytes (%) (Auto) 8.2, Eosinophils (%) (Auto) 1.1, Basophils (%) (Auto) 0.4, Neutrophils # (Auto) 7.47, Lymphocytes # (Auto) 2.81, Monocytes # (Auto) 0.94, Eosinophils # (Auto) 0.13, Basophils # (Auto) 0.05 07/27/16 18:40 Test 07/27/16 18:40 07/27/16 18:52 White Blood Count 11.44 K/uL (4.8-10.8) Red Blood Count 4.74 M/uL (4.2-5.4) Hemoglobin 11.9 g/dL (12.0-16.0) Hematocrit 37.3 % (37-47) Mean Corpuscular Volume 78.7 fL (80-100) Mean Corpuscular Hemoglobin 25.1 pg (25-34) Mean Corpuscular Hemoglobin Concent 31.9 g/dl (32-36) Platelet Count 255 K/uL (130-400) Mean Platelet Volume 9.9 fL (7.4-10.4) Neutrophils (%) (Auto) 65.4 % Lymphocytes (%) (Auto) 24.6 % Monocytes (%) (Auto) 8.2 % Eosinophils (%) (Auto) 1.1 % Basophils (%) (Auto) 0.4 % Neutrophils # (Auto) 7.47 K/uL (1.4-6.5) Lymphocytes # (Auto) 2.81 K/uL (1.2-3.4) Monocytes # (Auto) 0.94 K/uL (0.11-0.59) Eosinophils # (Auto) 0.13 K/uL (0-0.5) Basophils # (Auto) 0.05 K/uL (0-0.2) RDW Standard Deviation 47.0 fL (36.4-46.3) RDW Coefficient of Variation 16.4 % (11.5-14.5) Immature Granulocyte % (Auto) 0.3 % Immature Granulocyte # (Auto) 0.04 K/uL (0.00-0.02) Prothrombin Time 10.0 SECONDS (9.0-12.0) Prothromb Time International Ratio 0.9 (0.9-1.1) Activated Partial Thromboplast Time 28.4 SECONDS (21.0-31.0) Partial Thromboplastin Ratio 1.1 Anion Gap 9.0 mmol/L (3-11) Est Creatinine Clear Calc Drug Dose 137.1 ml/min Estimated GFR () 115.0 Estimated GFR (Non- 99.2 BUN/Creatinine Ratio 13.1 (10-20) Calcium Level 8.8 mg/dl (8.5-10.1) Magnesium Level 2.0 mg/dl (1.8-2.4) Total Bilirubin 0.2 mg/dl (0.2-1) Direct Bilirubin < 0.1 mg/dl (0-0.2) Aspartate Amino Transf (AST/SGOT) 16 U/L (15-37) Alanine Aminotransferase (ALT/SGPT) 23 U/L (12-78) Alkaline Phosphatase 66 U/L (45-117) Total Creatine Kinase 104 U/L (26-192) Creatine Kinase MB 0.9 ng/ml (0.5-3.6) Creatine Kinase MB Ratio 0.9 (0-3.0) Total Protein 7.7 gm/dl (6.4-8.2) Albumin 3.3 gm/dl (3.4-5.0) Lipase 162 U/L (73-393) Thyroid Stimulating Hormone (TSH) 1.040 uIu/ml (0.300-4.500) Bedside Troponin I < 0.030 ng/ml (0-0.045) Laboratory studies as stated above per my review. Medications Administered Medications (Trade) Dose Ordered Sig/Neida Route Start Time Stop Time Status Last Admin Dose Admin Sodium Chloride 1,000 ml @ 999 mls/hr Q1H1M STAT IV 07/27/16 18:07 07/27/16 19:07 DC 07/27/16 18:49 999 MLS/HR ECG Indication: palpitations Rate (beats per minute): 87 Rhythm: normal sinus Findings: RBBB, no acute ischemic change Comparison ECG Date: 06/23/16 Change: no significant change ED Course 180: Past medical records reviewed. The patient was evaluated in room B06, and a complete history and physical examination were performed. 180: Ordered Sodium Chloride 1000 ml @ 999 mls/hr IV 1918: I reevaluated the patient and she is resting. She asked if she could have coffee. 2003: Upon reevaluation, the patient is resting and in no distress. I discussed the results and treatment plan with her. She verbalized agreement of the treatment plan. The patient was discharged home. I checked the monitor, and she had occasional PVC but no significant arrhythmia. Medical Decision Differential diagnosis include: palpitation, cardiac disease, thyroid disease, electrolyte metabolic abnormalities. Medication Reconciliation: I attest that I have personally reviewed the patient' s current medication list. Blood pressure Screening: Patient was found to have normal blood pressure on screening and does not require follow-up. This patient comes in as described above. She's been having palpitations for 3- 4 days. She looks well at present. Her heart rate is regular, she is normotensive. Looking through her chart, she does have a history of SVT but no atrial arrhythmias. She is on no blood thinners. She's missed no medications. She denies any chest pain. She is a some shoulder pain for she hit her shoulder. I did get a chest x-ray as well as a shoulder x-ray. Multiple blood testing was obtained as well as an EKG. She was reassessed frequently. X-rays of her shoulder do not show any fracture dislocation. Chest x-ray was unremarkable. EKG does not suggest acute coronary syndrome or arrhythmia. On the monitor while she was in the ER, she did have occasional PVC but no other significant arrhythmia. She has no acute electrode or metabolic abnormality. Her troponin is not elevated. Her symptoms did not suggest acute coronary syndrome or significant arrhythmia. She has had palpitations before. She has been asking to go home and strongly desires to go home and will be discharged home. She was encouraged to return if: Worsening symptoms, chest pain, shortness breath, any new problems or concerns. She should follow up with her doctor Friday for recheck or return earlier over the weekend if symptoms worsen Impression Primary Impression: Palpitations Additional Impression: Sprain of left shoulder Scribe Attestation The scribe's documentation has been prepared under my direction and personally reviewed by me in its entirety. I confirm that the note above accurately reflects all work, treatment, procedures, and medical decision making performed by me. Departure Information Dispostion Home / Self-Care Referrals RV. Patterson MD (PCP) Forms HOME CARE DOCUMENTATION FORM, IMPORTANT VISIT INFORMATION, WORK / SCHOOL INSTRUCTIONS Patient Instructions My [facility] Additional Instructions Rest. Drink plenty of fluids. Return if: Worsening of symptoms, chest pain, shortness of breath, fever or chills, any new problems concerns Follow-up with her doctor Friday for recheck and return over the weekend if symptoms worsen. Problem Qualifiers
[2016-07-27 19:00] LABS: BASO % 0.4 %; BASO ABS # 0.05 K/uL (0-0.2); COMPLETE YES; EOS % 1.1 %; HEMATOCRIT 37.3 % (37-47); IG% 0.3 %; LYMPH % 24.6 %; LYMPH ABS # 2.81 K/uL (1.2-3.4); MEAN CELL VOLUME 78.7 fL (80-100); MEAN CORPUSCULAR HEMOGLOBIN 25.1 pg (25-34); MEAN CORPUSCULAR HGB CONC 31.9 g/dl (32-36); MEAN PLATELET VOLUME 9.9 fL (7.4-10.4); MONO % 8.2 %; NEUT % 65.4 %; PLATELET COUNT 255 K/uL (130-400); RED BLOOD COUNT 4.74 M/uL (4.2-5.4); WHITE BLOOD COUNT 11.44 K/uL (4.8-10.8)
[2016-07-27 19:09] LABS: INR 0.9 (0.9-1.1); PARTIAL THROMBOPLASTIN RATIO 1.1
[2016-07-27 19:18] LABS: ALT/SGPT 23 U/L (12-78); AST/SGOT 16 U/L (15-37); BLOOD UREA NITROGEN 8 mg/dl (7-18); BUN/CREATININE RATIO 13.1 (10-20); CALCIUM 8.8 mg/dl (8.5-10.1); CARBON DIOXIDE 30 mmol/L (21-32); CHLORIDE 101 mmol/L (98-107); CREATININE 0.61 mg/dl (0.60-1.20); GLUCOSE 101 mg/dl (70-99); POTASSIUM 3.8 mmol/L (3.5-5.1); SODIUM 140 mmol/L (136-145)
--- NOTE | 2016-07-27 19:20 | DIAGNOSTIC IMAGING REPORT ---
CHEST 1 VW FRONT-NOT PORTABLE CLINICAL HISTORY: HEART PALP DANIEL ESME NS/LT SHOULDER PAIN pain COMPARISON STUDY: 06/23/2016 FINDINGS: Chronic elevation right hemidiaphragm. Lungs are clear. IMPRESSION: No acute process. Electronically signed by: Artis Koehler M.D. 07/27/2016 7:19 PM Dictated Date/Time: 07/27/2016 7:19 PM
--- NOTE | 2016-07-27 19:20 | DIAGNOSTIC IMAGING REPORT ---
LEFT SHOULDER MIN 2 VIEWS ROUTINE CLINICAL HISTORY: left shoulder pain pain COMPARISON: None. DISCUSSION: Moderate generalized degenerative change. No acute bony abnormality. There is no evidence for soft tissue swelling. IMPRESSION: Moderate generalized degenerative change. No acute bony abnormality. Electronically signed by: Artis Koehler M.D. 07/27/2016 7:18 PM Dictated Date/Time: 07/27/2016 7:18 PM
[2016-07-27 19:25] LABS: ALKALINE PHOSPHATASE 66 U/L (45-117); CKMB/CK RATIO 0.9 (0-3.0)
[2016-07-27 20:08] VITALS: BP 122/55; PULSE 78; O2SAT 97
[2016-08-24] MEDS ORDERED: POTA1080 PO (10:03)
[2016-08-24] MEDS ORDERED: METF-384 PO (10:03)
[2016-08-24] MEDS ORDERED: INSDGI SC (12:01)
[2016-08-24] MEDS ORDERED: INSU100I SC (12:01)
[2016-08-24] MEDS ORDERED: FERR1TAB62 PO (15:16)
[2016-08-24] MEDS ORDERED: ATOR10TA82 PO (15:19)
== END 2016-07-27 20:08 | disposition home or self-care (01) ==
LOC: C.EDB 17:42
DX: R00.2 Palpitations (principal); S43.402A Unspecified sprain of left shoulder joint, initial encounter; W22.8XXA Striking against or struck by other objects, initial encounter; J45.909 Unspecified asthma, uncomplicated; J44.9 Chronic obstructive pulmonary disease, unspecified; E11.9 Type 2 diabetes mellitus without complications; G47.30 Sleep apnea, unspecified; Z83.3 Family history of diabetes mellitus; Z82.49 Family history of ischemic heart disease and other diseases of the circulatory system; Z87.891 Personal history of nicotine dependence; F12.90 Cannabis use, unspecified, uncomplicated; Z79.82 Long term (current) use of aspirin; Z79.4 Long term (current) use of insulin

== ENCOUNTER 2016-08-24 14:27 | Emergency (ER) | payer OTHER ==
[~2016-08-24] VITALS: Ht 157.5 cm; Wt 143.0 kg
[~2016-08-24 14:27] MED LIST changes: -BENZ100C84 PO; -DILT180C PO; -HYDR0.75 PO; +INSDGI SC; +INSU100I SC; -LEVA45AE INH; +METF-384 PO; -ONDA4TAB46 PO; +POTA1080 PO; +RHNAQIN NAE
[2016-08-24 14:30] VITALS: TEMP 36.8; Ht 157.5 cm; Wt 143.0 kg
[2016-08-24] MEDS ORDERED: MoRPHine SULFATE 10 MG/ML CARP/VIAL IM STA (15:13)
[2016-08-24] MEDS ORDERED: KETOROLAC TROMETHAMINE 60 MG/2 ML VIAL IM STA (15:13)
[2016-08-24] MEDS ORDERED: ONDANSETRON 4MG OD TAB PO ONE (15:15)
[2016-08-24] MEDS ORDERED: RANI300T PO (15:16)
[2016-08-24] MEDS ORDERED: ATR10 PO (15:16)
[2016-08-24] MEDS ORDERED: CYAN10004 PO (15:16)
[2016-08-24] MEDS ORDERED: SNG10 PO (15:16)
[2016-08-24] MEDS ORDERED: ASPI-461 PO (15:16)
[2016-08-24] MEDS ORDERED: FERR325T PO (15:16)
[2016-08-24] MEDS ORDERED: CHOL2000 PO (15:16)
[2016-08-24] MEDS ORDERED: ENAL2.5T PO (15:16)
[2016-08-24] MEDS ORDERED: ATOR10TA88 PO (15:19)
[2016-08-24] MEDS ORDERED: OXYC1TAB3 PO (15:19)
[2016-08-24 16:40] VITALS: BP 98/82; PULSE 82; O2SAT 93
[2016-08-24] MEDS ORDERED: DLTCD/240 PO (18:11)
--- NOTE | 2016-08-24 18:44 | EMERGENCY ROOM VISIT NOTE ---
History First contact with patient: 15:06 Chief Complaint: SHOULDER PAIN Stated Complaint: RIGHT SHOULDER,NECK AND ARM PAIN History of Present Illness The patient is a 61 year old female who presents to the Emergency Room with complaints of a 2-3 day history of neck pain radiating into the right shoulder blade, shoulder and right upper arm. The patient denies any known injury to her neck or shoulder. She is status post right shoulder surgery [address] Alex. She has a one-year follow-up with Dr. Alex at the end of September. The patient reports that she has had problems with her neck in the past. She is usually a left side sleeper. She denies any chest pain or shortness of breath, and rates her discomfort a 9 out of 10. Review of Systems 10 system review was performed and was negative except for pertinent positives and negatives as indicated in history of present illness Past Medical/Surgical History Medical Problems: (1) Asthma (2) Calculus Of Kidney (3) Cholecystectomy (4) Chronic obstructive lung disease (5) Diabetes mellitus (6) Hysterectomy (7) Left arm numbness (8) Rotator cuff arthropathy (9) Shortness of breath (10) Sleep apnea (11) SVT (supraventricular tachycardia) Family History Diabetes mellitus Hypertension Kidney stones Social History Smoking Status: Former Smoker Alcohol Use: none Drug Use: none, marijuana Marital Status: Housing Status: lives with family Occupation Status: disabled Current/Historical Medications Scheduled Aspirin (Aspirin), 81 MG PO DAILY Atorvastatin (Lipitor), 10 MG PO QPM Cetirizine (Zyrtec), 10 MG PO QAM Cholecalciferol (Vitamin D3), 2,000 INTER.UNIT PO QAM Cyanocobalamin (Vitamin B-12 1000 Mcg), 1,000 MCG PO QPM Diltiazem Hcl (Diltiazem Cd), 240 MG PO QAM Enalapril Maleate (Vasotec), 2.5 MG PO QPM Ferrous Sulfate (Ferrous Sulfate), 325 MG PO DAILY Furosemide (Lasix), 40 MG PO BID Hydroxyzine HCl (Hydroxyzine HCl), 10 MG PO Q12 Insulin Glargine (Lantus), 100 UNITS SC QAM Insulin Lispro (Human) (Humalog), 1 DOSE SC UD Liraglutide (Victoza), 1.8 MCG SQ QPM Metformin Hcl (Glucophage), 1,000 MG PO BIDM Mometasone Furoate-Formoterol (Dulera 200/5 Mcg), 2 PUFFS INH BID Montelukast Sod (Montelukast Sodium), 10 MG PO HS Potassium Citrate (Alkalinizer (Potassium Citrate ER), 1,080 MG PO BID Ranitidine Hcl (Zantac), 300 MG PO BID Scheduled PRN Acetaminophen (Tylenol), 325 MG PO TID PRN for Headache or Pain Homeopathic Products (Leg Cramp Relief), 3 TABS PO TID PRN for Leg Cramps Oxycodone Ir (Roxicodone Ir), 1-2 TAB PO Q4H PRN for Pain Allergies Coded Allergies: Tetanus Toxoid (Verified Allergy, Unknown, ARM SWELLING ITCHY, 07/27/16) Physical Exam Vital Signs Date Time Temp Pulse Resp B/P (MAP) Pulse Ox O2 Delivery O2 Flow Rate FiO2 08/24/16 16:40 82 20 98/82 93 08/24/16 14:30 36.8 88 16 125/62 94 Room Air Physical Exam CONSTITUTIONAL: Morbidly obese female, alert and oriented X 3 with positive affect. She appears in moderate discomfort from pain. HEENT: Normocephalic, atraumatic. Pupils equal, round and reactive. NECK: Left lateral gaze worsens and reproduces the patient's pain into the right scapular region, shoulder and upper arm. She has tenderness to palpation over the right lower cervical nerve roots. No focal tenderness to palpation through the central cervical spine, and no paraspinous spasm appreciated. RESPIRATORY: Clear to auscultation bilaterally with no wheezing, crackles, rhonchi or stridor. Deep breathing does not worsen her discomfort. CARDIOVASCULAR: Regular rate and rhythm with no murmurs, rubs or gallops. MUSCULOSKELETAL: Examination shows a well-healed right anterior surgical incision without erythema or tenderness to palpation. Gentle internal rotation does not worsen her discomfort. No tenderness to palpation through the acromioclavicular joint, posterior shoulder or tenderness to palpation of the eye sepsis/triceps musculature. Equal hand admin dir bilaterally. INTEGUMENTARY: No rash or other significant dermatologic conditions noted. NEUROLOGIC: Cranial nerves II-XII grossly intact. Right upper extremity is sensory intact with intact deltoid sensation. Medical Decision & Procedures Medications Administered Medications (Trade) Dose Ordered Sig/Neida Route Start Time Stop Time Status Last Admin Dose Admin Morphine Sulfate (MoRPHine SULFATE INJ) 8 mg NOW STAT IM 08/24/16 15:13 08/24/16 15:15 DC 08/24/16 15:55 8 MG Ketorolac Tromethamine (Toradol Inj) 60 mg NOW STAT IM 08/24/16 15:13 08/24/16 15:15 DC 08/24/16 15:55 60 MG Ondansetron HCl (Zofran Odt) 4 mg ONE ONCE PO 08/24/16 15:15 08/24/16 15:16 DC 08/24/16 15:53 4 MG ED Course Patient history and physical exam were performed. Nurse's notes were reviewed. Vital signs were reviewed and normal. History and clinical exam are most consistent with a right cervical radiculitis. The patient was encouraged to intermittently apply ice to the neck, and try to sleep on her back with a towel wrapped around her neck for support. She was encouraged to alternate ibuprofen and Tylenol for baseline pain relief. She was provided a prescription for OxyIR 5 mg, dispensed #15 with no refills. No drinking alcohol or driving while taking this medication. She was instructed to follow-up with her orthopedics practice or family doctor for further reevaluation and management. The patient was administered IM morphine and Toradol, along with oral Zofran ODT , and rated her pain a 4 out of 10 at the time of discharge. Medical Decision As indicated in the previous section, history and clinical exam findings are most consistent with a cervical radiculitis. I do not suspect compensation's of right shoulder surgery, pneumothorax, myocardial infarction or other intrathoracic etiology. Other orthopedic considerations include rotator cuff arthropathy and tendinitis. [facility] Drug Monitoring Program Search Results: patient reviewed within database, no issues identified Impression Primary Impression: Right cervical radiculopathy Departure Information Dispostion Home / Self-Care Prescriptions Oxycodone Ir (Roxicodone Ir) 5 Mg Tab 1-2 TAB PO Q4H Y for Pain, #15 TAB For Initial Treatment Prov: Hugo Stein PA 08/24/16 Referrals Gutierrez Kaur, DO Forms HOME CARE DOCUMENTATION FORM, IMPORTANT VISIT INFORMATION Patient Instructions [facility] Additional Instructions Intermittently apply ice to neck as recommended. Try to sleep on your back with a towel wrapped around her neck for support. Ibuprofen 800 mg and/or Tylenol 1000 mg every 8 hours. You may also alternate these medications for more effective pain relief: Ibuprofen --4 HRS--> Tylenol --4 HRS--> ibuprofen --4 HRS--> Tylenol .... OxyIR if needed for worse pain. Do not drink alcohol or drive while taking OxyIR. Follow-up with orthopedics or your family doctor for further reevaluation and management.
[2016-08-24] MEDS ORDERED: ACET-1311 PO (19:36)
[2016-08-24] MEDS ORDERED: LIRA18IN SQ (21:20)
[2016-08-24] MEDS ORDERED: CETI10TA84 PO (21:20)
[2016-08-24] MEDS ORDERED: HOME1TAB18 PO (21:30)
[2016-08-24] MEDS ORDERED: MOME200A INH (23:09)
[2016-08-24] MEDS ORDERED: FRS/40 PO (23:40)
== END 2016-08-24 16:53 | disposition home or self-care (01) ==
LOC: C.EDB 14:28 → C.EDD 16:53
DX: M54.12 Radiculopathy, cervical region (principal); E11.9 Type 2 diabetes mellitus without complications; J45.909 Unspecified asthma, uncomplicated; J44.9 Chronic obstructive pulmonary disease, unspecified; G47.30 Sleep apnea, unspecified; Z87.442 Personal history of urinary calculi; Z90.710 Acquired absence of both cervix and uterus; Z90.49 Acquired absence of other specified parts of digestive tract; Z87.891 Personal history of nicotine dependence; Z79.82 Long term (current) use of aspirin; Z79.4 Long term (current) use of insulin; Z79.899 Other long term (current) drug therapy; Z88.8 Allergy status to other drugs, medicaments and biological substances; Z83.3 Family history of diabetes mellitus; Z82.49 Family history of ischemic heart disease and other diseases of the circulatory system; Z84.1 Family history of disorders of kidney and ureter

== ENCOUNTER 2016-10-08 15:58 | Emergency (ER) | payer OTHER ==
[~2016-10-08] VITALS: Ht 160 cm; Wt 142.3 kg
[~2016-10-08 15:58] MED LIST changes: +ACET-1311 PO; +ASPI-461 PO; -ASPI81TA28 PO; +ATOR10TA88 PO; +ATR10 PO; +CETI10TA84 PO; +CHOL2000 PO; -CHOL20005 PO; -CYAN100020 PO; +CYAN10004 PO; +DLTCD/240 PO; -ENAL1TAB29 PO; +ENAL2.5T PO; +FERR325T PO; +FRS/40 PO; +HOME1TAB18 PO; -HYDR-389 PO; -LIDO16CR TOP; +LIRA18IN SQ; +MOME200A INH; -MONT1TAB3 PO; -NYSTCRE32 TOP; +OXYC1TAB3 PO; +RANI300T PO; -RHNAQIN NAE; +SNG10 PO; -TRAM-10 PO; -ZNTT/150 PO
[2016-10-08 16:10] VITALS: Ht 160 cm; Wt 142.3 kg
[2016-10-08] MEDS ORDERED: TRAM-10 PO ×2 (16:30→17:12)
[2016-10-08] MEDS ORDERED: TRAMADOL HCL 50 MG TAB PO STA (16:56)
--- NOTE | 2016-10-08 16:58 | DIAGNOSTIC IMAGING REPORT ---
RIGHT ANKLE MIN 3 VIEWS ROUTINE CLINICAL HISTORY: Right ankle pain following fall. COMPARISON: Right tibia and fibula radiographs June 07, 2015. FINDINGS: Alignment of the right ankle is anatomic. No acute fracture is identified. Talar dome is intact. There is moderate posterior and plantar calcaneal spurring. IMPRESSION: No acute fracture or dislocation of the right ankle. Electronically signed by: Ángel Garcia M.D. 10/08/2016 4:56 PM Dictated Date/Time: 10/08/2016 4:55 PM
--- NOTE | 2016-10-08 17:00 | DIAGNOSTIC IMAGING REPORT ---
RIGHT FOOT MIN 3 VIEWS ROUTINE CLINICAL HISTORY: Right foot pain following fall. COMPARISON: Right foot radiographs December 23, 2015. FINDINGS: Tarsometatarsal joints are intact. No acute fracture is identified within the right foot. Moderate posterior and plantar calcaneal spurring is noted. IMPRESSION: No acute fracture or dislocation of the right foot. Electronically signed by: Ángel Garcia M.D. 10/08/2016 4:59 PM Dictated Date/Time: 10/08/2016 4:56 PM
--- NOTE | 2016-10-08 17:43 | EMERGENCY ROOM VISIT NOTE ---
History First contact with patient: 16:06 Chief Complaint: ANKLE PAIN Stated Complaint: ANKLE PAIN History of Present Illness The patient is a 61 year old female who presents to the Emergency Room with complaints of injuries after she lost her balance and twisted her ankle while walking into her bathroom with a walker. The patient reports rolling the ankle. She also reports hitting her head on the door frame, but denies any significant headache. The patient reports that her pain is elevated to a 9 out of 10 with weightbearing. She denies any prior history of right foot or ankle fractures. She currently denies any pain extending into the leg or knee region. The pain is mostly over the lateral foot, ankle and Achilles tendon region. She denies paresthesias or numbness of the right foot or toes. Review of Systems 10 system review was performed and was negative except for pertinent positives and negatives as indicated in history of present illness Past Medical/Surgical History Medical Problems: (1) Asthma (2) Calculus Of Kidney (3) Cholecystectomy (4) Chronic obstructive lung disease (5) Diabetes mellitus (6) Hysterectomy (7) Left arm numbness (8) Rotator cuff arthropathy (9) Shortness of breath (10) Sleep apnea (11) SVT (supraventricular tachycardia) Family History Diabetes mellitus Hypertension Kidney stones Social History Smoking Status: Former Smoker Alcohol Use: none Drug Use: none, marijuana Marital Status: Housing Status: lives with family Occupation Status: disabled Current/Historical Medications Scheduled Aspirin (Aspirin), 81 MG PO DAILY Atorvastatin (Lipitor), 10 MG PO QPM Cetirizine (Zyrtec), 10 MG PO QAM Cholecalciferol (Vitamin D3), 2,000 INTER.UNIT PO QAM Cyanocobalamin (Vitamin B-12 1000 Mcg), 1,000 MCG PO QPM Diltiazem Hcl (Diltiazem Cd), 240 MG PO QAM Enalapril Maleate (Vasotec), 2.5 MG PO QPM Ferrous Sulfate (Ferrous Sulfate), 325 MG PO DAILY Furosemide (Lasix), 40 MG PO BID Hydroxyzine HCl (Hydroxyzine HCl), 10 MG PO Q12 Insulin Glargine (Lantus), 80 UNITS SC QAM Insulin Lispro (Human) (Humalog), 60 UNITS SC DIRECTED Liraglutide (Victoza), 1.8 MCG SQ QAM Metformin Hcl (Glucophage), 1,000 MG PO BIDM Mometasone Furoate-Formoterol (Dulera 200/5 Mcg), 2 PUFFS INH BID Montelukast Sod (Montelukast Sodium), 10 MG PO HS Potassium Citrate (Alkalinizer (Potassium Citrate ER), 1,080 MG PO BID Ranitidine Hcl (Zantac), 300 MG PO BID Scheduled PRN Acetaminophen (Tylenol), 325 MG PO TID PRN for Headache or Pain Homeopathic Products (Leg Cramp Relief), 3 TABS PO TID PRN for Leg Cramps Tramadol (Ultram), 50 MG PO Q12 PRN for Pain Tramadol (Ultram), 1-2 TAB PO Q4H PRN for Pain Physical Exam Vital Signs Date Time Temp Pulse Resp B/P (MAP) Pulse Ox O2 Delivery O2 Flow Rate FiO2 10/08/16 16:10 37.0 107 18 111/90 96 Room Air Physical Exam CONSTITUTIONAL: Morbidly obese female, alert and oriented X 3 with positive affect. Patient appears in mild discomfort. HEENT: Examination of the forehead shows minimal soft tissue edema without any laceration, abrasion or hematoma. Pupils equal, round and reactive. No subcutaneous tonometer hemorrhage, epistaxis or hemotympanum. NECK: Full active range of motion without discomfort. MUSCULOSKELETAL: Examination of the right lower extremity shows mild edema over the entire ankle region, most pronounced laterally. She is tender over the lateral foot, malleolus and distal fibula. She has no obvious focal disruption of the Achilles tendon. No focal tenderness over the dorsal midfoot or calcaneus. Negative anterior draw. Pedal pulses are intact. Plantar flexion strength of the right ankle is 3 out of 5 compared to 4 out of 5 on the left. INTEGUMENTARY: No rash or other significant dermatologic conditions noted. NEUROLOGIC: No focal neurologic deficits noted. Medical Decision & Procedures ER Provider Diagnostic Interpretation: My interpretation of right foot and ankle x-rays does not show any obvious fractures or dislocations. Radiologist reports were also reviewed. Medications Administered Medications (Trade) Dose Ordered Sig/Neida Route Start Time Stop Time Status Last Admin Dose Admin Tramadol HCl (Ultram Tab) 50 mg ONE STAT PO 10/08/16 16:56 10/08/16 16:57 DC 10/08/16 17:22 50 MG ED Course Patient history and physical exam were performed. Nurse's notes were reviewed. Vital signs were reviewed and were normal. An ice pack was applied. The patient had gone to x-ray prior to my exam. X-rays of the foot and ankle were normal. A fracture boot was applied, and the patient was instructed to continue using her walker to help with ambulation. She was encouraged to ice and elevate the ankle for swelling. Ibuprofen and Tylenol in alternating fashion for baseline pain relief. The patient was administered and Ultram 50 mg while in the emergency department, and provided a prescription for Ultram as needed for breakthrough pain. She was instructed to follow-up with Dr. Alex , her orthopedic surgeon, for further reevaluation and management. The patient voiced understanding of all discharge instructions, was happy with plan of care , and rated her pain a 4 out of 10 at the time of discharge. Medical Decision [place] Drug Monitoring Program Search Results: patient reviewed within database, no issues identified Medication Reconcilliation Current Medication List: was personally reviewed by [place] Blood Pressure Screening Patient's blood pressure: Normal blood pressure Impression Primary Impression: Right ankle sprain Additional Impressions: Closed head injury Fall at home Departure Information Prescriptions Tramadol (Ultram) 50 Mg Tab 1-2 TAB PO Q4H Y for Pain, #20 TAB For Initial Treatment Prov: Hugo Stein PA 10/08/16 Referrals RV. Patterson MD (PCP) Patient Instructions [facility] Problem Qualifiers Primary Impression: Right ankle sprain Encounter type: initial encounter Involved ligament of ankle: unspecified ligament Qualified Codes: S93.401A - Sprain of unspecified ligament of right ankle, initial encounter Additional Impressions: Closed head injury Encounter type: initial encounter Qualified Codes: S09.90XA - Unspecified injury of head, initial encounter Fall at home Encounter type: initial encounter Qualified Codes: W19.XXXA - Unspecified fall, initial encounter; Y92.099 - Unspecified place in other non-institutional residence as the place of occurrence of the external cause
[2016-10-08 17:45] VITALS: BP 116/85; PULSE 88; O2SAT 98
--- NOTE | 2016-10-08 18:08 | Pharmacy Progress Note ---
ED Pharmacist Progress Note Date of Service: Oct 08, 2016. Received call from [facility] requesting clarification on tramadol dose. If taken at maximum prescribed, would exceed recommended daily max of 400 mg. Spoke w Hugo Stein PA-C. CASS'ed change to the following: Tramadol 50 mg tab 1 tab po q4h prn pain, #20, 0 refill Provided verbal consent to [facility].
== END 2016-10-08 17:47 | disposition home or self-care (01) ==
LOC: EDBD 15:58 → C.EDD 15:59
DX: S93.401A Sprain of unspecified ligament of right ankle, initial encounter (principal); S09.90XA Unspecified injury of head, initial encounter; X50.1XXA Overexertion from prolonged static or awkward postures, initial encounter; W01.198A Fall on same level from slipping, tripping and stumbling with subsequent striking against other object, initial encounter; Y93.01 Activity, walking, marching and hiking; Y99.8 Other external cause status; Y92.099 Unspecified place in other non-institutional residence as the place of occurrence of the external cause; J45.909 Unspecified asthma, uncomplicated; E66.01 Morbid (severe) obesity due to excess calories; Z68.43 Body mass index [BMI] 50.0-59.9, adult; J44.9 Chronic obstructive pulmonary disease, unspecified; E11.9 Type 2 diabetes mellitus without complications; Z87.891 Personal history of nicotine dependence; Z87.442 Personal history of urinary calculi; Z90.710 Acquired absence of both cervix and uterus; Z90.49 Acquired absence of other specified parts of digestive tract; Z83.3 Family history of diabetes mellitus; Z82.49 Family history of ischemic heart disease and other diseases of the circulatory system; Z84.1 Family history of disorders of kidney and ureter; Z79.4 Long term (current) use of insulin; Z79.82 Long term (current) use of aspirin; Z79.84 Long term (current) use of oral hypoglycemic drugs

== ENCOUNTER → 2016-10-16 | Outpatient (CLI) | payer OTHER ==
[~2016-10-16] MED LIST changes: -OXYC1TAB3 PO; +TRAM-10 PO
[2016-10-17 06:31] LABS: ESTIMATED AVERAGE GLUCOSE 140 mg/dl; HA1C FLAG Normal (Normal)
== END | disposition home or self-care (01) ==
LOC: C.LAB 15:14
PROVIDERS: ATTEND Nurse Practitioner Adult Health
DX: E11.319 Type 2 diabetes mellitus with unspecified diabetic retinopathy without macular edema (principal)

== ENCOUNTER 2016-10-26 21:06 | Emergency (ER) | payer OTHER ==
[~2016-10-26] VITALS: Ht 160 cm; Wt 140.0 kg
[2016-10-26 21:10] VITALS: TEMP 36.8; Ht 160 cm; Wt 140.0 kg
[2016-10-26] MEDS ORDERED: KETOROLAC TROMETHAMINE 30 MG/ML VIAL IV STA (22:10)
[2016-10-26] MEDS ORDERED: DiphenhydrAMINE HCL 50 MG/ML VIAL IV STA (22:10)
[2016-10-26] MEDS ORDERED: SODIUM CHLORIDE 0.9% 1000ML 1,000 ML IV STA (22:10)
[2016-10-26] MEDS ORDERED: SODIUM CHLORIDE 0.9% 500ML 500 ML IV STA (22:10)
[2016-10-26] MEDS ORDERED: METOCLOPRAMIDE HCL INJ 5 MG/ML 2 ML VIAL IV STA (22:10)
--- NOTE | 2016-10-26 22:34 | DIAGNOSTIC IMAGING REPORT ---
CHEST ONE VIEW PORTABLE CLINICAL HISTORY: Fever and cough COMPARISON STUDY: 07/27/2016 FINDINGS: The heart is at the upper limits of normal in size. There is persistent elevation right hemidiaphragm. There is no failure. There is no lobar consolidation. There are mild right basilar atelectatic changes.[ IMPRESSION: Persistent elevation of the right hemidiaphragm with minor right basilar atelectasis. No acute findings. Electronically signed by: Abdulkadir Guerrero M.D. 10/26/2016 10:33 PM Dictated Date/Time: 10/26/2016 10:32 PM
[2016-10-26 22:58] LABS: URINE APPEARANCE CLEAR (CLEAR); URINE BILIRUBIN NEG (NEG); URINE COLOR YELLOW; URINE EPITHELIAL CELL AUTO >30 /lpf (0-5); URINE NITRITE NEG (NEG); URINE PH 8.5 (4.5-7.5); URINE SPECIFIC GRAVITY 1.022 (1.000-1.030); UROBILINOGEN NEG (NEG); ZZUR CULT IF INDIC CLEAN CATCH YES
[2016-10-26 23:02] LABS: MANUAL MICROSCOPIC REQUIRED? NO; REVIEW REQ? NO
[2016-10-26 23:11] LABS: BASO % 0.2 %; BASO ABS # 0.03 K/uL (0-0.2); COMPLETE YES; EOS % 1.3 %; HEMATOCRIT 37.5 % (37-47); IG% 0.2 %; LYMPH % 23.7 %; LYMPH ABS # 3.08 K/uL (1.2-3.4); MEAN CELL VOLUME 80.1 fL (80-100); MEAN CORPUSCULAR HEMOGLOBIN 24.4 pg (25-34); MEAN CORPUSCULAR HGB CONC 30.4 g/dl (32-36); MEAN PLATELET VOLUME 9.7 fL (7.4-10.4); MONO % 7.2 %; NEUT % 67.4 %; PLATELET COUNT 276 K/uL (130-400); RED BLOOD COUNT 4.68 M/uL (4.2-5.4); WHITE BLOOD COUNT 12.99 K/uL (4.8-10.8)
[2016-10-26 23:12] LABS: INR 0.9 (0.9-1.1); PROTHROMBIN TIME (PATIENT) 10.1 SECONDS (9.0-12.0)
[2016-10-26 23:19] LABS: BLOOD UREA NITROGEN 11 mg/dl (7-18); BUN/CREATININE RATIO 22.9 (10-20); CALCIUM 9.4 mg/dl (8.5-10.1); CARBON DIOXIDE 31 mmol/L (21-32); CHLORIDE 100 mmol/L (98-107); CREATININE 0.49 mg/dl (0.60-1.20); GLUCOSE 70 mg/dl (70-99); POTASSIUM 3.6 mmol/L (3.5-5.1); SODIUM 137 mmol/L (136-145)
[2016-10-26 23:23] LABS: ALB/GLOB RATIO 0.7 (0.9-2); ALKALINE PHOSPHATASE 61 U/L (45-117); ALT/SGPT 26 U/L (12-78); AST/SGOT 10 U/L (15-37)
[2016-10-26 23:25] VITALS: O2SAT 93
[2016-10-27 01:47] VITALS: BP 131/58; PULSE 74; O2SAT 93
--- NOTE | 2016-10-27 01:50 | EMERGENCY ROOM VISIT NOTE ---
History First contact with patient: 22:06 Chief Complaint: HEADACHE Stated Complaint: HEADACHE,LF SHOULDER History of Present Illness The patient is a 61 year old female who presents to the Emergency Room with complaints of cough, nausea, congestion, left upper back pain, dyspnea, headache , myalgias, fatigue with subjective fever and chills for the past week and half. Patient just finished Medrol Dosepak and Zithromax for the family care Dr. for possible pneumonia. No x-ray was done. Patient states occasionally her left upper back hurts her. Patient denies fall, abdominal pain, vomiting , diarrhea. Review of Systems See HPI for pertinent positives & negatives. A total of 10 systems reviewed and were otherwise negative. Past Medical/Surgical History Medical Problems: (1) Asthma (2) Calculus Of Kidney (3) Cholecystectomy (4) Chronic obstructive lung disease (5) Diabetes mellitus (6) Hysterectomy (7) Left arm numbness (8) Rotator cuff arthropathy (9) Shortness of breath (10) Sleep apnea (11) SVT (supraventricular tachycardia) Family History Diabetes mellitus Hypertension Kidney stones Social History Smoking Status: Former Smoker Alcohol Use: none Drug Use: none, marijuana Marital Status: Housing Status: lives with family Occupation Status: disabled Current/Historical Medications Scheduled Aspirin (Aspirin), 81 MG PO DAILY Atorvastatin (Lipitor), 10 MG PO QPM Cetirizine (Zyrtec), 10 MG PO QAM Cholecalciferol (Vitamin D3), 2,000 INTER.UNIT PO QAM Cyanocobalamin (Vitamin B-12 1000 Mcg), 1,000 MCG PO QPM Diltiazem Hcl (Diltiazem Cd), 240 MG PO QAM Enalapril Maleate (Vasotec), 2.5 MG PO QPM Ferrous Sulfate (Ferrous Sulfate), 325 MG PO DAILY Furosemide (Lasix), 40 MG PO BID Hydroxyzine HCl (Hydroxyzine HCl), 10 MG PO Q12 Insulin Glargine (Lantus), 80 UNITS SC QAM Insulin Lispro (Human) (Humalog), 60 UNITS SC DIRECTED Liraglutide (Victoza), 1.8 MCG SQ QAM Metformin Hcl (Glucophage), 1,000 MG PO BIDM Mometasone Furoate-Formoterol (Dulera 200/5 Mcg), 2 PUFFS INH BID Montelukast Sod (Montelukast Sodium), 10 MG PO HS Potassium Citrate (Alkalinizer (Potassium Citrate ER), 1,080 MG PO BID Ranitidine Hcl (Zantac), 300 MG PO BID Scheduled PRN Acetaminophen (Tylenol), 325 MG PO TID PRN for Headache or Pain Homeopathic Products (Leg Cramp Relief), 3 TABS PO TID PRN for Leg Cramps Tramadol (Ultram), 50 MG PO Q12 PRN for Pain Physical Exam Vital Signs Date Time Temp Pulse Resp B/P (MAP) Pulse Ox O2 Delivery O2 Flow Rate FiO2 10/27/16 00:25 78 20 103/58 94 Room Air 10/26/16 23:25 92 20 115/59 93 Room Air 10/26/16 23:25 93 Room Air 10/26/16 21:10 36.8 101 20 128/70 93 Room Air Physical Exam VITALS: Vitals are noted on the nurse's note and reviewed by myself. Vital signs stable. GENERAL: White female, in no acute distress, nondiaphoretic, well-developed well -nourished. SKIN: The skin was without rashes, erythema, edema, or bruising. There is no tenting of the skin. Capillary reflex less than 2 seconds. HEAD: Normocephalic atraumatic. EARS: External auditory canals clear, tympanic membranes pearly tran without erythema or effusion bilaterally. EYES: Pupils equal round and reactive to light and accommodation. Conjunctivae without injection, sclerae without icterus. Extraocular movements intact. NOSE: Patent, turbinates without inflammation or discharge. MOUTH: Mucous membranes moist. Pharynx without erythema or exudate. Uvula midline. Airway patent. Tongue does not deviate. NECK: Supple without nuchal rigidity. No lymphadenopathy. No thyromegaly. Cervical spine is nontender. No JVD. HEART: Regular rate and rhythm LUNGS: Clear to auscultation bilaterally without wheezes, rales or rhonchi. No dullness to percussion. No retractions or accessory muscle use. ABDOMEN: Positive bowel sounds x 4. Normal tympanic percussion. Soft, protuberant, obese, nontender, without masses or organomegaly. Cheung sign negative. No guarding or rebound tenderness. MUSCULOSKELETAL: No muscle atrophy, erythema, noted. NEURO: Patient was alert and oriented to person place and time. Normal sensation to light and sharp touch. No focal neurological deficits. Medical Decision & Procedures Laboratory Results 10/26/16 22:38 Red Blood Count 4.68, Mean Corpuscular Volume 80.1, Mean Corpuscular Hemoglobin 24.4, Mean Corpuscular Hemoglobin Concent 30.4, Mean Platelet Volume 9.7, Neutrophils (%) (Auto) 67.4, Lymphocytes (%) (Auto) 23.7, Monocytes (%) (Auto) 7.2, Eosinophils (%) (Auto) 1.3, Basophils (%) (Auto) 0.2, Neutrophils # (Auto) 8.75, Lymphocytes # (Auto) 3.08, Monocytes # (Auto) 0.93, Eosinophils # (Auto) 0.17, Basophils # (Auto) 0.03 10/26/16 22:38 Test 10/26/16 22:38 10/26/16 23:24 10/27/16 00:50 White Blood Count 12.99 K/uL (4.8-10.8) Red Blood Count 4.68 M/uL (4.2-5.4) Hemoglobin 11.4 g/dL (12.0-16.0) Hematocrit 37.5 % (37-47) Mean Corpuscular Volume 80.1 fL (80-100) Mean Corpuscular Hemoglobin 24.4 pg (25-34) Mean Corpuscular Hemoglobin Concent 30.4 g/dl (32-36) Platelet Count 276 K/uL (130-400) Mean Platelet Volume 9.7 fL (7.4-10.4) Neutrophils (%) (Auto) 67.4 % Lymphocytes (%) (Auto) 23.7 % Monocytes (%) (Auto) 7.2 % Eosinophils (%) (Auto) 1.3 % Basophils (%) (Auto) 0.2 % Neutrophils # (Auto) 8.75 K/uL (1.4-6.5) Lymphocytes # (Auto) 3.08 K/uL (1.2-3.4) Monocytes # (Auto) 0.93 K/uL (0.11-0.59) Eosinophils # (Auto) 0.17 K/uL (0-0.5) Basophils # (Auto) 0.03 K/uL (0-0.2) RDW Standard Deviation 47.7 fL (36.4-46.3) RDW Coefficient of Variation 16.4 % (11.5-14.5) Immature Granulocyte % (Auto) 0.2 % Immature Granulocyte # (Auto) 0.03 K/uL (0.00-0.02) Prothrombin Time 10.1 SECONDS (9.0-12.0) Prothromb Time International Ratio 0.9 (0.9-1.1) Activated Partial Thromboplast Time 26.4 SECONDS (21.0-31.0) Partial Thromboplastin Ratio 1.0 Urine Color YELLOW Urine Appearance CLEAR (CLEAR) Urine pH 8.5 (4.5-7.5) Urine Specific [place] 1.022 (1.000-1.030) Urine Protein NEG (NEG) Urine Glucose (UA) NEG (NEG) Urine Ketones NEG (NEG) Urine Occult Blood NEG (NEG) Urine Nitrite NEG (NEG) Urine Bilirubin NEG (NEG) Urine Urobilinogen NEG (NEG) Urine Leukocyte Esterase SMALL (NEG) Urine WBC (Auto) 10-30 /hpf (0-5) Urine RBC (Auto) 0-4 /hpf (0-4) Urine Hyaline Casts (Auto) 1-5 /lpf (0-5) Urine Epithelial Cells (Auto) >30 /lpf (0-5) Urine Bacteria (Auto) NEG (NEG) Anion Gap 6.0 mmol/L (3-11) Est Creatinine Clear Calc Drug Dose 170.6 ml/min Estimated GFR () 123.6 Estimated GFR (Non- 106.6 BUN/Creatinine Ratio 22.9 (10-20) Calcium Level 9.4 mg/dl (8.5-10.1) Total Bilirubin 0.2 mg/dl (0.2-1) Aspartate Amino Transf (AST/SGOT) 10 U/L (15-37) Alanine Aminotransferase (ALT/SGPT) 26 U/L (12-78) Alkaline Phosphatase 61 U/L (45-117) Total Protein 7.0 gm/dl (6.4-8.2) Albumin 2.9 gm/dl (3.4-5.0) Globulin 4.1 gm/dl (2.5-4.0) Albumin/Globulin Ratio 0.7 (0.9-2) D-Dimer 350 ug/L FEU (0-500) Troponin I < 0.015 ng/ml (0-0.045) Medications Administered Medications (Trade) Dose Ordered Sig/Neida Route Start Time Stop Time Status Last Admin Dose Admin Sodium Chloride 500 ml @ 999 mls/hr Q31M STAT IV 10/26/16 22:10 10/26/16 22:40 DC 10/26/16 23:34 999 MLS/HR Ketorolac Tromethamine (Toradol Inj) 30 mg NOW STAT IV 10/26/16 22:10 10/26/16 22:14 DC 10/26/16 23:27 30 MG Metoclopramide HCl (Reglan Inj) 10 mg NOW STAT IV 10/26/16 22:10 10/26/16 22:14 DC 10/26/16 23:26 10 MG Diphenhydramine HCl (Benadryl Inj) 12.5 mg NOW STAT IV 10/26/16 22:10 10/26/16 22:14 DC 10/26/16 23:27 12.5 MG ED Course Prior records/ancillary studies reviewed. Triage Nursing notes reviewed. Additional history obtained from the family. The patient's history was concerning for respiratory difficulties. Differential diagnosis: Etiologies such as infections, reactive airway disease, pneumonia, pneumothorax , COPD, CHF, cardiac ischemia, pulmonary embolism, musculoskeletal, gastrointestinal, as well as others were entertained. Physical examination: As above. ER treatment provided: IV fluids, Reglan, Benadryl, Toradol On reassessment the patient felt better. Diagnostic interpretation by me: The electrocardiogram was normal sinus, right bundle branch block, no acute ST- T wave changes, rate of 87. Impression right bundle branch block interpreted by myself. The labs revealed negative troponin 2, leukocytosis most likely from recent prednisone use, negative d-dimer Imaging studies: Chest x-ray as above. [~ rep ct add3]] CHEST ONE VIEW PORTABLE CLINICAL HISTORY: Fever and cough COMPARISON STUDY: 07/27/2016 FINDINGS: The heart is at the upper limits of normal in size. There is persistent elevation right hemidiaphragm. There is no failure. There is no lobar consolidation. There are mild right basilar atelectatic changes.[ IMPRESSION: Persistent elevation of the right hemidiaphragm with minor right basilar atelectasis. No acute findings. Electronically signed by: Abdulkadir Guerrero M.D. Consultation: A consultation was placed with the [] hospitalist. The case was discussed and diagnostics were reviewed. The patient was evaluated in the ER for further treatment. This appears to be consistent with []. Patient was neurovascularly and neurologically intact. No signs of airway compromise. No abdominal pain. She is Advised take medications as directed and to follow-up family care in a few days or here in the ER sooner for high fevers, lethargy, chest pains, worsening signs or symptoms or as needed. By the evaluation outlined above emergent etiologies such as CHF, cardiac ischemia, pulmonary embolism, reactive airway disease, pneumonia, pneumothorax, musculoskeletal, serious bacterial infections , as well as others were deemed relatively unlikely. The pt informed about the findings as listed above. All questions were answered and pleased with the treatment. Return instructions were outlined and the patient was discharged in stable condition. Outpatient prescription management: [] Referral: The patient was referred back to their primary care physician for follow-up in 2 to 3 days for a recheck of the current condition. Case reviewed with my attending. Medical Decision As above Medication Reconcilliation Current Medication List: was personally reviewed by me Blood Pressure Screening Patient's blood pressure: Normal blood pressure Impression Primary Impression: Headache Additional Impressions: Upper back pain on left side Dyspnea Departure Information Dispostion Home / Self-Care Condition GOOD Referrals RV. Patterson MD (PCP) Patient Instructions My [facility] Additional Instructions DO NOT drive, drink alcohol, operate machinery, or perform dangerous activities today. You were given medications in the ER that can affect your ability to safely function or operate a vehicle. Rest today in a quiet, peaceful, dark environment and get a full 8-10 hrs of sleep tonight. Avoid loud noises, smoke/smoking, alcohol, bright lights, stress, or physical exertion today to minimize the chance the headache may return. Continue current medications. Ibuprofen(Motrin, Advil) may be used for fever or pain. Use 600mg every six hours as needed. Take with food. Avoid using more than 2400mg in a 24 hour period. Do not use 2400mg per day for more than three consecutive days without physician direction. Prolonged inappropriate use can lead to stomach upset or ulcers. (AND/OR) Acetaminophen(Tylenol) may be used for fever or pain. Use 1000mg every six hours as needed. Avoid using more than 3000mg in a 24 hour period. Return to the ER for passing out, worsening headache, chest pain, difficulty breathing, vision problems, neck stiffness/pain, fevers, vomiting, worsening of your condition, or as needed. Follow up with your primary physician in 2-3 days for a recheck of your current condition. Problem Qualifiers Primary Impression: Headache Headache type: tension-type Headache chronicity pattern: acute headache Intractability: not intractable Qualified Codes: G44.209 - Tension-type headache, unspecified, not intractable
== END 2016-10-27 01:48 | disposition home or self-care (01) ==
LOC: C.EDB 21:07 → C.EDC 10-27 01:48
DX: G44.209 Tension-type headache, unspecified, not intractable (principal); M54.2 Cervicalgia; R06.00 Dyspnea, unspecified; J45.909 Unspecified asthma, uncomplicated; J44.9 Chronic obstructive pulmonary disease, unspecified; E11.9 Type 2 diabetes mellitus without complications; I47.1 Supraventricular tachycardia; G47.30 Sleep apnea, unspecified; Z83.3 Family history of diabetes mellitus; Z82.49 Family history of ischemic heart disease and other diseases of the circulatory system; Z87.891 Personal history of nicotine dependence; F12.90 Cannabis use, unspecified, uncomplicated; Z79.82 Long term (current) use of aspirin; Z79.4 Long term (current) use of insulin

== ENCOUNTER → 2016-11-25 | Outpatient (CLI) | payer OTHER ==
--- NOTE | 2016-11-25 14:42 | DIAGNOSTIC IMAGING REPORT ---
TWO VIEW CHEST CLINICAL HISTORY: Bronchitis. FINDINGS: PA and lateral chest radiographs are compared to study dated 10/26/2016. The cardiomediastinal silhouette is unremarkable. There is elevation of the right hemidiaphragm with right basilar atelectasis. No airspace consolidation or pleural effusion is seen. There is no pneumothorax. The skeletal structures are osteopenic. Degenerative change is present throughout the thoracic spine. A right shoulder arthroplasty is in place. IMPRESSION: No active disease in the chest. Electronically signed by: Burak Nur M.D. 11/25/2016 2:40 PM Dictated Date/Time: 11/25/2016 2:40 PM
== END | disposition home or self-care (01) ==
LOC: C.RAD1850 14:30
PROVIDERS: ATTEND Internal Medicine
DX: J20.9 Acute bronchitis, unspecified (principal)

== ENCOUNTER → 2017-01-07 | Outpatient (CLI) | payer OTHER ==
[~2017-01-07] MED LIST changes: +ATOR10TA82 PO; -ATOR10TA88 PO; +FERR1TAB62 PO; -FERR325T PO
--- NOTE | 2017-01-07 10:07 | DIAGNOSTIC IMAGING REPORT ---
CHEST 2 VIEWS ROUTINE HISTORY: 61 years-old Female COUGH acute cough. COMPARISON: Chest radiograph 11/25/2016 TECHNIQUE: PA and lateral views of the chest FINDINGS: Cardiomediastinal and hilar silhouettes are within normal limits. Moderate right hemidiaphragmatic elevation is unchanged. No pneumothorax, pleural effusion, focal airspace consolidation or overt pulmonary edema. Linear subsegmental right basilar opacities suggest atelectasis or scarring, unchanged. Bones of the chest are grossly intact. Right shoulder arthroplasty noted. Multilevel endplate spurring of the spine. IMPRESSION: No acute cardiopulmonary process. The above report was generated using voice recognition software. It may contain grammatical, syntax or spelling errors. Electronically signed by: Patricio Peterson M.D. 01/07/2017 10:06 AM Dictated Date/Time: 01/07/2017 10:05 AM
== END | disposition home or self-care (01) ==
LOC: C.RAD1850 09:45
PROVIDERS: ATTEND Physician Assistant Medical
DX: R05 Cough (principal)

== ENCOUNTER 2017-01-24 14:05 | Emergency (ER) | payer OTHER ==
[~2017-01-24] VITALS: Ht 160 cm; Wt 139.0 kg
[~2017-01-24 14:05] MED LIST changes: -ACET-1311 PO; -ASPI-461 PO; -ATR10 PO; -CHOL2000 PO; -CYAN10004 PO; -DLTCD/240 PO; -ENAL2.5T PO; -FRS/40 PO; -HOME1TAB18 PO; -LIRA18IN SQ; -MOME200A INH; -RANI300T PO; -SNG10 PO; -TRAM-10 PO
[2017-01-24 14:07] VITALS: BP 138/75; TEMP 36.7; Ht 160 cm; Wt 139.0 kg
[2017-01-24] MEDS ORDERED: OXYCODONE HCL IR 5 MG TAB (IMMEDIATE RELEASE) PO STA (14:32)
[2017-01-24] MEDS ORDERED: LPT10 PO (15:07)
--- NOTE | 2017-01-24 15:11 | EMERGENCY ROOM VISIT NOTE ---
ED Visit Note First contact with patient: 14:17 CHIEF COMPLAINT: Toe pain - left great HISTORY OF PRESENT ILLNESS: This 61-year-old female patient presents to the emergency department, ambulatory, complaining of swelling and pain in the left big toe at rest and worse with weight bearing. The patient states she has been going through a very stressful time recently with the deaths of multiple family members and friends, and last evening became extremely agitated and kicked a baby gate three times. She states shortly afterward, her toenail turned black and blue and she noticed some bruising on the end of the toe. The patient's daughter helped her conrado tape the toes together last night, but the bandage fell off overnight. The patient rates the pain as throbbing and 8/10. The patient has not had relief of the pain, despite taking Tylenol and Tramadol, which she had at home. The patient is able to walk. No numbness or weakness. No ankle pain. There are no lacerations of the foot. The patient is able to move all of their other toes and their ankle without pain. No previous fracture to this foot. REVIEW OF SYSTEMS: GENERAL: A 6 system review of systems was completed with positives and pertinent negatives in the HPI. ALLERGIES: Tetanus toxoid MEDICATIONS: Please see list. PMH: Diabetes SOCIAL HISTORY: The patient lives locally with family. She denies drug, alcohol , tobacco use. PHYSICAL EXAM: Vital Signs: Reviewed Nurse's notes, vital signs stable. GENERAL : This is a 61 year old obese white female, presents in a wheelchair, in no acute distress, but appears in pain, well-developed, well-nourished. MUSCULOSKELATAL: There is no visual deformity of the left great toe. There is mild erythema and ecchymosis of the distal phalanx. There is no warmth. There is tenderness and swelling over the distal phalanx of the left great toe. There is no tenderness over the lateral or medial malleolus. No tenderness of the tib /fib. The range of motion of the left great toe is mildly limited secondary to pain. There is no tenderness over the plantar fascia. The skin is intact and there are no lacerations or puncture wounds. Dorsalis pedis pulse 2+. Capillary refill less than 2 seconds. RADIOLOGY: L TOE(S) MIN 2 VIEWS CLINICAL HISTORY: 61 years-old Female presenting with left great toe pain/bruising s/p trauma. TECHNIQUE: Frontal, oblique, and lateral views of the left first toe. COMPARISON: 07/11/2016. FINDINGS: Mild degenerative changes suggested at the first metatarsophalangeal articulation. Joint spaces are preserved. No acute fracture or malalignment. No focal soft tissue abnormality is radiographically apparent. Degenerative changes also noted in the interphalangeal joints of the second toe. IMPRESSION: No acute osseous injury of the left first toe. Degenerative changes as above. Electronically signed by: Osmar Onofre M.D. 01/24/2017 3:45 PM Dictated Date/Time: 01/24/2017 3:43 PM EMERGENCY DEPARTMENT COURSE: I examined the patient. An X-ray of the Left great toe was reviewed by myself and radiologist and reveals no acute fracture. The patient was offered a post-op shoe and declined. I did encourage her to use her walker/wheelchair which she has at home to help her get around her house. The patient was discharged home in good condition. I attest that I have personally reviewed the patient's current medication list. Patient was found to have normal blood pressure on screening and does not require follow-up. DIFFERENTIAL DIAGNOSIS: Fracture, contusion, abrasion, cellulitis, abscess, subungual hematoma, malignancy, and others DIAGNOSIS: Contusion of left great toe Problem List Medical Problems: (1) Asthma Status: Chronic (2) Cholecystectomy Status: Resolved (3) Chronic obstructive lung disease Status: Chronic (4) Diabetes mellitus Status: Chronic (5) Hysterectomy Status: Resolved (6) Sleep apnea Status: Chronic Current/Historical Medications Scheduled Aspirin (Aspirin), 81 MG PO DAILY Atorvastatin (Atorvastatin Calcium), 10 MG PO HS Cholecalciferol (Vitamin D3), 2,000 INTER.UNIT PO QAM Cyanocobalamin (Vitamin B-12 1000 Mcg), 1,000 MCG PO QPM Diltiazem Hcl (Diltiazem Cd), 240 MG PO QAM Enalapril Maleate (Vasotec), 2.5 MG PO QPM Furosemide (Lasix), 40 MG PO BID Hydroxyzine HCl (Hydroxyzine HCl), 10 MG PO Q12 Insulin Glargine (Basaglar Kwikpen), 80 UNITS SC QAM Insulin Lispro (Human) (Humalog), 1 DOSE SC UD Liraglutide (Victoza), 1.8 MCG SQ QAM Metformin Hcl (Glucophage), 1,000 MG PO BIDM Mometasone Furoate-Formoterol (Dulera 200/5 Mcg), 2 PUFFS INH BID Montelukast Sod (Montelukast Sodium), 10 MG PO HS Potassium Citrate (Alkalinizer (Potassium Citrate ER), 1,080 MG PO BID Ranitidine Hcl (Zantac), 300 MG PO BID Scheduled PRN Acetaminophen (Tylenol), 325 MG PO TID PRN for Headache or Pain Homeopathic Products (Leg Cramp Relief), 3 TABS PO TID PRN for Leg Cramps Tramadol (Ultram), 50 MG PO Q12 PRN for Pain Allergies Coded Allergies: Tetanus Toxoid (Verified Allergy, Unknown, ARM SWELLING ITCHY, 10/26/16) Vital Signs Date Time Temp Pulse Resp B/P (MAP) Pulse Ox O2 Delivery O2 Flow Rate FiO2 01/24/17 16:11 90 18 92 01/24/17 14:07 36.7 95 18 138/75 96 Room Air Medications Administered Medications (Trade) Dose Ordered Sig/Neida Route Start Time Stop Time Status Last Admin Dose Admin Oxycodone HCl (Roxicodone Immediate Rel Tab) 5 mg NOW STAT PO 01/24/17 14:32 01/24/17 14:34 DC 01/24/17 14:48 5 MG Departure Information Impression Primary Impression: Contusion of left great toe without damage to nail Dispostion Home / Self-Care Condition GOOD Referrals RV. Patterson MD (PCP) Patient Instructions ED Crush Injury Toe No Fx, My [facility] Additional Instructions You seen in the emergency department today for toe pain. X-ray did not reveal any acute fracture. You were diagnosed with a toe contusion. Use your walker or wheelchair to help with ambulation around the house. Get plenty of rest, ice, and elevate the toe to help with discomfort. You may use Tylenol OTC for pain relief. You may also use the narcotic pain medication you have at home as needed. Follow-up with your PCP within one week for reevaluation. Return to the emergency department for worsening redness, pain, swelling, any drainage, discoloration, or other concerning symptoms. Problem Qualifiers Primary Impression: Contusion of left great toe without damage to nail Encounter type: initial encounter Qualified Codes: S90.112A - Contusion of left great toe without damage to nail, initial encounter
[2017-01-24] MEDS ORDERED: INSU100I23 SC (15:12)
[2017-01-24] MEDS ORDERED: CHOL2000 PO (15:16)
[2017-01-24] MEDS ORDERED: RANI300T PO (15:16)
[2017-01-24] MEDS ORDERED: SNG10 PO (15:16)
[2017-01-24] MEDS ORDERED: ENAL2.5T PO (15:16)
[2017-01-24] MEDS ORDERED: ASPI-461 PO (15:16)
[2017-01-24] MEDS ORDERED: ATR10 PO (15:16)
[2017-01-24] MEDS ORDERED: CYAN10004 PO (15:16)
--- NOTE | 2017-01-24 15:46 | DIAGNOSTIC IMAGING REPORT ---
L TOE(S) MIN 2 VIEWS CLINICAL HISTORY: 61 years-old Female presenting with left great toe pain/bruising s/p trauma. TECHNIQUE: Frontal, oblique, and lateral views of the left first toe. COMPARISON: 07/11/2016. FINDINGS: Mild degenerative changes suggested at the first metatarsophalangeal articulation. Joint spaces are preserved. No acute fracture or malalignment. No focal soft tissue abnormality is radiographically apparent. Degenerative changes also noted in the interphalangeal joints of the second toe. IMPRESSION: No acute osseous injury of the left first toe. Degenerative changes as above. Electronically signed by: Osmar Onofre M.D. 01/24/2017 3:45 PM Dictated Date/Time: 01/24/2017 3:43 PM
[2017-01-24 16:11] VITALS: PULSE 90; O2SAT 92
[2017-01-24] MEDS ORDERED: TRAM-10 PO (16:30)
[2017-01-24] MEDS ORDERED: DLTCD/240 PO (18:11)
[2017-01-24] MEDS ORDERED: ACET-1311 PO (19:36)
[2017-01-24] MEDS ORDERED: LIRA18IN SQ (21:20)
[2017-01-24] MEDS ORDERED: HOME1TAB18 PO (21:30)
[2017-01-24] MEDS ORDERED: MOME200A INH (23:09)
[2017-01-24] MEDS ORDERED: FRS/40 PO (23:40)
== END 2017-01-24 16:12 | disposition home or self-care (01) ==
LOC: C.EDB 14:06 → C.EDD 16:12
DX: S90.112A Contusion of left great toe without damage to nail, initial encounter (principal); W22.03XA Walked into furniture, initial encounter; J45.909 Unspecified asthma, uncomplicated; J44.9 Chronic obstructive pulmonary disease, unspecified; E11.9 Type 2 diabetes mellitus without complications; G47.30 Sleep apnea, unspecified; Z79.82 Long term (current) use of aspirin; Z79.4 Long term (current) use of insulin

== ENCOUNTER → 2017-02-17 | Outpatient (CLI) | payer OTHER ==
[~2017-02-17] MED LIST changes: +ACET-1311 PO; +ASPI-461 PO; -ATOR10TA82 PO; +ATR10 PO; -CETI10TA84 PO; +CHOL2000 PO; +CYAN10004 PO; +DLTCD/240 PO; +ENAL2.5T PO; -FERR1TAB62 PO; +FRS/40 PO; +HOME1TAB18 PO; -INSDGI SC; +INSU100I23 SC; +LIRA18IN SQ; +LPT10 PO; +MOME200A INH; +RANI300T PO; +SNG10 PO; +TRAM-10 PO
--- NOTE | 2017-02-18 07:47 | MAMMOGRAPHY REPORT ---
BILATERAL DIGITAL SCREENING MAMMOGRAM WITH CAD: 02/17/2017 CLINICAL HISTORY: Routine screening. Patient has no complaints. TECHNIQUE: Bilateral CC and MLO views were obtained. Current study was also evaluated with a Compute r Aided Detection (CAD) system. COMPARISON: Comparison is made to exams dated: 08/07/2015 mammogram, 08/04/2014 mammogram, 07/19/2013 ma mmogram, 07/13/2012 mammogram, 06/26/2011 mammogram, and 06/18/2010 mammogram - [facility] er. BREAST COMPOSITION: There are scattered areas of fibroglandular density in both breasts. FINDINGS: There are two new 4.5 mm focal asymmetries versus masses in the 6:00 middle one third of t he right breast. Additional spot compression tomosynthesis views and possible ultrasound are recomme nded. Benign-appearing punctate microcalcifications in the 6:00 right breast appear stable dating ba ck to at least 2011 and are most likely benign given long-term stability. No other suspicious mass, architectural distortion or cluster of microcalcifications is seen. IMPRESSION: ACR BI-RADS CATEGORY 0: INCOMPLETE EVALUATION: NEED ADDITIONAL IMAGING EVALUATION The 2 new 4.5 mm focal asymmetries versus masses in the 6:00 right breast need additional evaluation. The patient will be called to schedule an appointment. Approximately 10% of breast cancers are not detected with mammography. A negative mammographic report should not delay biopsy if a clinically suggestive mass is present. Roma Serna M.D. ay/:02/17/2017 14:53:20 Attending Technologist: Angelina Recio RT(R)(M), [facility] Unarmed Security Officer: Rosita Scott RT(R)(M), [facility] letter sent: Addl Imaging 0 BI-RADS Code: ACR BI-RADS Category 0: Incomplete Evaluation: Need Additional Imaging Evaluation
== END | disposition home or self-care (01) ==
LOC: C.MAMM 14:19
PROVIDERS: ATTEND Internal Medicine
DX: Z12.31 Encounter for screening mammogram for malignant neoplasm of breast (principal)

== ENCOUNTER → 2017-02-19 | Outpatient (CLI) | payer OTHER ==
--- NOTE | 2017-02-19 15:31 | MAMMOGRAPHY REPORT ---
UNILATERAL RIGHT DIGITAL DIAGNOSTIC MAMMOGRAM TOMOSYNTHESIS AND TARGETED RIGHT ULTRASOUND: 02/19/2017 CLINICAL HISTORY: 61-year-old woman called back from screening mammography for 2 new subcentimeter fo homer asymmetries versus masses in the 6:00 middle one third of the right breast. TECHNIQUE: Spot compression right CC and MLO 2-D and tomosynthesis images were obtained. COMPARISON: Comparison is made to exams dated: 02/17/2017 mammogram, 08/07/2015 mammogram, 07/19/2013 [place] [facility], 07/13/2012 mammogram, 06/26/2011 mammogram, and 06/18/2010 mammogram - [facility] BREAST COMPOSITION: The tissue of the right breast is almost entirely fatty. FINDINGS: The supplemental spot compression tomosynthesis views of the right breast demonstrate 2 per sistent masses in the 6:00 middle one third of the right breast. The posterior mass is more lobulate d and circumscribed, measuring 6 mm, and the anterior mass is not completely circumscribed measuring 5.4 mm. There are a few punctate microcalcifications associated with the anterior mass. No architec tural distortion. When comparing back to prior available mammograms, the microcalcifications have be en present and appear unchanged dating back to at least 07/19/2013, therefore likely benign. The ant erior non-circumscribed mass was also present but slightly smaller at that time, suggesting a fluctua ting cyst. No other suspicious masses, calcifications or areas of architectural distortion are seen in the visualized right breast. Targeted ultrasound was performed throughout the 6:00 right breast. In the 6:00 axis, 8 cm from the nipple, there is an oval parallel circumscribed anechoic benign simple cyst measuring 4.2 x 2.2 x 5.1 mm. This likely correlates with the more posterior circumscribed mammographic mass. A second predo minantly anechoic cyst with not completely circumscribed borders is identified in the 6:[address], 6 cm from the nipple, measuring 3.4 x 1.9 x 3.8 mm. This is thought to correspond to the more an terior mass. Both represent cysts and are benign. No further close follow-up is needed at this time . IMPRESSION: ACR BI-RADS CATEGORY 2: BENIGN, TARGETED ULTRASOUND ACR BI-RADS CATEGORY 2: BENIGN The 2 subcentimeter masses in the 6:00 right breast correspond to benign cysts on ultrasound. There is no mammographic or targeted sonographic evidence of malignancy in the right breast. Recommend rou gelacio screening mammography in one year. These results and recommendations were discussed with the patient at the time of the exam. Approximately 10% of breast cancers are not detected with mammography. A negative mammographic report should not delay biopsy if a clinically suggestive mass is present. Roma Serna M.D. ay/:02/19/2017 10:18:43 Access Nurse: Michelle Carolina, [facility] letter sent: Normal 1/2 BI-RADS Code: ACR BI-RADS Category 2: Benign Ultrasound BI-RADS: ACR BI-RADS Category 2: Benign
== END | disposition home or self-care (01) ==
LOC: C.MAMM 09:35
PROVIDERS: ATTEND Internal Medicine
DX: R92.8 Other abnormal and inconclusive findings on diagnostic imaging of breast (principal); N64.89 Other specified disorders of breast; N63.10 Unspecified lump in the right breast, unspecified quadrant

== ENCOUNTER → 2017-03-05 | Outpatient (CLI) | payer OTHER ==
--- NOTE | 2017-03-05 16:20 | DIAGNOSTIC IMAGING REPORT ---
TWO VIEW CHEST CLINICAL HISTORY: Cough and fever.. FINDINGS: PA and lateral chest radiographs are compared to study dated 01/07/2017. The heart is mildly enlarged and there is atherosclerotic calcification of the thoracic aorta. The pulmonary vasculature is noncongested. Chronic interstitial thickening is similar to previous. There is chronic elevation of the right hemidiaphragm bibasilar atelectasis. No airspace consolidation is seen typical for pneumonia and there is no pleural effusion. There is no pneumothorax. The skeletal structures are osteopenic. Degenerative change is noted throughout the thoracic spine. A right shoulder arthroplasty is observed. IMPRESSION: Mild cardiomegaly and chronic changes as above. No acute cardiopulmonary abnormality is seen. Electronically signed by: Burak Nur M.D. 03/05/2017 4:18 PM Dictated Date/Time: 03/05/2017 4:17 PM
== END | disposition home or self-care (01) ==
LOC: C.RAD1850 16:05
PROVIDERS: ATTEND Internal Medicine
DX: R50.9 Fever, unspecified (principal); R05 Cough

== ENCOUNTER 2017-03-10 16:26 | Observation (INO) | payer OTHER ==
[~2017-03-10] VITALS: Ht 160 cm; Wt 139.1 kg
[2017-03-10] MEDS ORDERED: ASPIRIN 81 MG CHEW PO STA (18:09)
--- NOTE | 2017-03-10 18:43 | DIAGNOSTIC IMAGING REPORT ---
CHEST ONE VIEW PORTABLE CLINICAL HISTORY: Atypical chest pain COMPARISON STUDY: 03/05/2017 FINDINGS: The cardiac and mediastinal contours remain stable. There is elevation of the right hemidiaphragm. There is no overt failure. There is no lobar consolidation. There is minor interstitial thickening similar to the prior study. There are no significant pleural effusions. There are postsurgical changes of a reverse right shoulder arthroplasty[ IMPRESSION: Elevation of the right hemidiaphragm. No evidence of acute parenchymal consolidation Electronically signed by: Abdulkadir Guerrero M.D. 03/10/2017 6:41 PM Dictated Date/Time: 03/10/2017 6:41 PM
[2017-03-10 19:00] LABS: BLOOD UREA NITROGEN 7 mg/dl (7-18); CALCIUM 9.7 mg/dl (8.5-10.1); CARBON DIOXIDE 27 mmol/L (21-32); CREATININE 0.63 mg/dl (0.60-1.20); GLUCOSE 124 mg/dl (70-99); POTASSIUM 3.6 mmol/L (3.5-5.1); SODIUM 135 mmol/L (136-145)
[2017-03-10 19:08] LABS: BASO % 0.6 %; BASO ABS # 0.07 K/uL (0-0.2); EOS ABS # 0.12 K/uL (0-0.5); HEMATOCRIT 39.6 % (37-47); HEMOGLOBIN 12.6 g/dL (12.0-16.0); IG# 0.04 K/uL (0.00-0.02); LYMPH % 24.6 %; MEAN CELL VOLUME 80.8 fL (80-100); MEAN CORPUSCULAR HEMOGLOBIN 25.7 pg (25-34); MEAN CORPUSCULAR HGB CONC 31.8 g/dl (32-36); MEAN PLATELET VOLUME 9.7 fL (7.4-10.4); MONO ABS # 0.73 K/uL (0.11-0.59); NEUT % 67.5 %; NEUT ABS # 8.22 K/uL (1.4-6.5); PLATELET COUNT 265 K/uL (130-400); RED CELL DISTRIBUTION WIDTH CV 16.1 % (11.5-14.5); WHITE BLOOD COUNT 12.18 K/uL (4.8-10.8)
[2017-03-10] MEDS ORDERED: OPTIRAY 320 IV PRN (19:30)
[2017-03-10 19:44] LABS: INFLUENZA B ANTIGEN Neg for Influ B (NEG)
--- NOTE | 2017-03-10 19:46 | DIAGNOSTIC IMAGING REPORT ---
CT ANGIOGRAM OF THE CHEST CLINICAL HISTORY: Atypical chest pain COMPARISON STUDY: Chest x-ray dated 03/10/2017, CT scan dated 02/29/2016 TECHNIQUE: Following the IV administration of 102 mL of [id number]-[id number], CT angiogram of the thorax was performed from the thoracic inlet to the lung bases utilizing the pulmonary embolus protocol. Images are reviewed in the axial, sagittal, and coronal planes. IV contrast was administered without complication. MIP imaging was performed. A dose lowering technique was utilized adhering to the principles of ALARA. CT DOSE: 900.84 mGy.cm FINDINGS: Prevascular and paratracheal lymph nodes are the upper limits of normal in size. There is no pathologic axillary or hilar lymphadenopathy. There was no evidence of thoracic aortic dilatation. There were no pulmonary artery filling defects to indicate acute pulmonary embolism. No pleural effusions are visualized. There is elevation the right hemidiaphragm. There is no lobar consolidation. There are right lower lobe compressive atelectatic changes. Two tiny right middle lobe pulmonary nodules, the largest of which measures 3 mm remain stable. IMPRESSION: 1. No evidence of acute pulmonary embolism 2. Elevation of the right hemidiaphragm with right lower lobe atelectasis Electronically signed by: Abdulkadir Guerrero M.D. 03/10/2017 7:45 PM Dictated Date/Time: 03/10/2017 7:40 PM
[2017-03-10] MEDS ORDERED: ACETAMINOPHEN 325 MG TAB PO PRN (20:30)
[2017-03-10] MEDS ORDERED: POLYETHYLENE (MIRALAX) 17 GM PACK PO PRN (20:30)
[2017-03-10] MEDS ORDERED: TRAMADOL HCL 50 MG TAB PO PRN (20:30)
[2017-03-10] MEDS ORDERED: ONDANSETRON INJ 2 MG/ML 2 ML VIAL IV PRN (20:30)
[2017-03-10] MEDS ORDERED: ZOLPIDEM TARTRATE 5 MG TAB PO PRN (20:30)
[2017-03-10] MEDS ORDERED: NITROGLYCERIN 0.4 MG SL PER TAB CHARGE SL PRN (20:30)
[2017-03-10] MEDS ORDERED: MAGNESIUM HYDROXIDE SUSP 30 ML UDC PO PRN (20:30)
[2017-03-10] MEDS ORDERED: MoRPHine SULFATE 2 MG/ML CARP IV PRN (20:30)
[2017-03-10] MEDS ORDERED: ALUMINUM/MAGNESIUM/SIMETH (MAALOX MAX) 30 ML UDC PO PRN (20:30)
--- NOTE | 2017-03-10 20:35 | History and Physical ---
History & Physical Date & Time of Service: Mar 10, 2017 at 20:30 Chief Complaint: Left Arm And Heart Pain- Cardiac Hx Primary Care Physician: RV. Patterson MD History of Present Illness Source: patient 61 y/o F, DM II, HPL, obesity, GERD, SVTs - diagnosed 10/27. Presenting with L sided CP - radiating into L arm and accompanied by mild SOB. She could not definitely confirm associated palpitations. She notes that the pain worsens or is triggered by activity. Denies N/V, lightheadedness or diaphoresis. Pain has resolved spontaneously at time of admission. Past Medical/Surgical History 1) HPL 2) Obesity 3) DM II - insulin-dependent 4) SVT - diagnosed 10/27 - treated with Diltiazem 5) Asthma 6) SHELBY Surgical: Hysterectomy Cholecystectomy Family History Diabetes mellitus Hypertension Kidney stones Social History Rare drink - does not smoke Smoking Status: Former Smoker Drug Use: none, marijuana Marital Status: Housing status: lives with family Occupational Status: disabled Immunizations History of Influenza Vaccine: Yes Influenza Vaccine Date: Nov 26, 2014 History of Tetanus Vaccine?: No History of Pneumococcal: Yes Pneumococcal Date: Mar 29, 2013 History of Hepatitis B Vaccine: No Multi-Drug Resistant Organisms History of MDRO: No Allergies Coded Allergies: Tetanus Toxoid (Verified Allergy, Unknown, ARM SWELLING ITCHY, 10/26/16) Home Medications Scheduled Aspirin (Aspirin), 81 MG PO DAILY Atorvastatin (Lipitor), 10 MG PO HS Cholecalciferol (Vitamin D3), 2,000 INTER.UNIT PO QAM Cyanocobalamin (Vitamin B-12 1000 Mcg), 1,000 MCG PO QPM Diltiazem Hcl (Diltiazem Cd), 240 MG PO QAM Enalapril Maleate (Vasotec), 2.5 MG PO QPM Furosemide (Lasix), 40 MG PO BID Hydroxyzine HCl (Hydroxyzine HCl), 10 MG PO Q12 Insulin Glargine (Basaglar Kwikpen), 80 UNITS SC QAM Insulin Lispro (Human) (Humalog), 1 DOSE SC UD Liraglutide (Victoza), 1.8 MCG SQ QAM Metformin Hcl (Glucophage), 1,000 MG PO BIDM Mometasone Furoate-Formoterol (Dulera 200/5 Mcg), 2 PUFFS INH BID Montelukast Sod (Montelukast Sodium), 10 MG PO HS Potassium Citrate (Alkalinizer (Potassium Citrate ER), 1,080 MG PO BID Ranitidine Hcl (Zantac), 300 MG PO BID Scheduled PRN Acetaminophen (Tylenol), 325 MG PO TID PRN for Headache or Pain Homeopathic Products (Leg Cramp Relief), 3 TABS PO TID PRN for Leg Cramps Tramadol (Ultram), 50 MG PO Q12 PRN for Pain Review of Systems Constitutional: No fever, No chills, No sweats Eyes: No worsening of vision ENT: No hearing loss, No unusual epistaxis, No nasal symptoms Respiratory: + shortness of breath, No cough, No sputum, No wheezing Cardiovascular: + chest pain, No orthopnea, No PND Abdomen: No pain, No nausea, No vomiting Musculoskeletal: No joint pain Genitourinary - Female: No dysuria, No urinary frequency, No urinary urgency Neurologic: No memory loss, No paralysis, No weakness Psychiatric: No depression symptoms Endocrine: No fatigue Hematologic / Lymphatic: No abnormal bleeding/bruising Integumentary: No rash Allergic / Immunologic: No environmental allergies Physical Exam Vital Signs Date Time Temp Pulse Resp B/P (MAP) Pulse Ox O2 Delivery O2 Flow Rate FiO2 03/10/17 20:18 95 24 140/87 95 Room Air 03/10/17 18:39 91 24 138/89 95 Room Air 03/10/17 18:04 Room Air 03/10/17 18:01 100 03/10/17 17:09 36.6 100 18 94 Room Air General Appearance: WD/WN, no apparent distress, + obese Head: normocephalic ENT: normal ENT inspection, pharynx normal Neck: supple Respiratory/Chest: chest non-tender, lungs clear Cardiovascular: regular rate, rhythm, no edema, no gallop Abdomen/GI: normal bowel sounds, non tender, soft Back: normal inspection Extremities/Musculoskelatal: normal inspection 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: 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, no motor/sensory deficits, alert, oriented x 3 Skin: normal color Diagnostics Laboratory Results Results Past 24 Hours Test 03/10/17 18:20 03/10/17 18:21 Range/Units Influenza Type A Antigen Neg for Influ A NEG Influenza Type B Antigen Neg for Influ B NEG White Blood Count 12.18 4.8-10.8 K/uL Red Blood Count 4.90 4.2-5.4 M/uL Hemoglobin 12.6 12.0-16.0 g/dL Hematocrit 39.6 37-47 % Mean Corpuscular Volume 80.8 80-100 fL Mean Corpuscular Hemoglobin 25.7 25-34 pg Mean Corpuscular Hemoglobin Concent 31.8 32-36 g/dl Platelet Count 265 130-400 K/uL Mean Platelet Volume 9.7 7.4-10.4 fL Neutrophils (%) (Auto) 67.5 % Lymphocytes (%) (Auto) 24.6 % Monocytes (%) (Auto) 6.0 % Eosinophils (%) (Auto) 1.0 % Basophils (%) (Auto) 0.6 % Neutrophils # (Auto) 8.22 1.4-6.5 K/uL Lymphocytes # (Auto) 3.00 1.2-3.4 K/uL Monocytes # (Auto) 0.73 0.11-0.59 K/uL Eosinophils # (Auto) 0.12 0-0.5 K/uL Basophils # (Auto) 0.07 0-0.2 K/uL RDW Standard Deviation 47.0 36.4-46.3 fL RDW Coefficient of Variation 16.1 11.5-14.5 % Immature Granulocyte % (Auto) 0.3 % Immature Granulocyte # (Auto) 0.04 0.00-0.02 K/uL Prothrombin Time 10.0 9.0-12.0 SECONDS Prothromb Time International Ratio 1.0 0.9-1.1 Sodium Level 135 136-145 mmol/L Potassium Level 3.6 3.5-5.1 mmol/L Chloride Level 99 98-107 mmol/L Carbon Dioxide Level 27 21-32 mmol/L Anion Gap 10.0 3-11 mmol/L Blood Urea Nitrogen 7 7-18 mg/dl Creatinine 0.63 0.60-1.20 mg/dl Estimated GFR () 113.8 Estimated GFR (Non- 98.2 BUN/Creatinine Ratio 10.5 10-20 Random Glucose 124 70-99 mg/dl Calcium Level 9.7 8.5-10.1 mg/dl Troponin I < 0.015 0-0.045 ng/ml EKG NSR, RBBB - no change from previous Impression Assessment and Plan 61 y/o F, DM II, HPL, obesity, GERD, SVTs - diagnosed 10/27. Presenting with L sided CP - radiating into L arm and accompanied by mild SOB. She could not definitely confirm associated palpitations. She notes that the pain worsens or is triggered by activity. Denies N/V, lightheadedness or diaphoresis. Pain has resolved spontaneously at time of admission. 1) CP - we will monitor on telemetry and obtain serial enzymes - no arrhythmias have been noted thus far and she has not yet had an episode of CP since arrival. If there is CP without arrhythmias, as inpt stress may be warranted. Otherwise, she follows with Dr. Maradiaga who could likely arrange office follow- up. 2) DM - placed on SS with daily Glargine. 3) SVTs - will remain on Diltiazem 4) HPL - cont Atorvastatin 5) Asthma - cont prescribed inhalers 6) SHELBY - has brought own CPAP machine which will be employed Full code - Heparin prophylaxis Total time for this admit including review pt labs, meds, imaging - discussion with pt and ER attending - 35 min Level of Care Telemetry Resuscitation Status FULL RESUSCITATION VTE Prophylaxis VTE Risk Assessment Done? Y/N: Yes Risk Level: Moderate
[2017-03-10] MEDS ORDERED: ENALAPRIL MALEATE 5 MG TAB PO SCH (21:00)
[2017-03-10] MEDS ORDERED: NON-FORMULARY MEDICATION (Mometasone Furoate-Formoterol (Dulera 200/5 Mcg) 2 PUFFS) INH SCH (21:00)
[2017-03-10] MEDS ORDERED: MONTELUKAST SOD 10 MG TAB PO SCH (21:00)
[2017-03-10] MEDS ORDERED: ATORVASTATIN 10 MG TAB PO SCH (21:00)
[2017-03-10] MEDS ORDERED: CYANOCOBALAMIN 500 MCG TAB (VIT B-12) PO SCH (21:00)
[2017-03-10 21:20] VITALS: BP 148/108; PULSE 102; TEMP 36.8; O2SAT 93; Ht 160 cm; Wt 139.1 kg
[2017-03-10] MEDS ORDERED: GLUCOSE 40% GEL 15 GM TUBE PO PRN (21:45)
[2017-03-10] MEDS ORDERED: GLUCOSE 10 TABS/TUBE PO PRN (21:45)
[2017-03-10] MEDS ORDERED: GLUCAGON FOR INJ 1 MG VIAL SQ PRN (21:45)
[2017-03-10] MEDS ORDERED: DEXTROSE 50% 50 ML SYR IV PRN (21:45)
--- NOTE | 2017-03-10 22:20 | EMERGENCY ROOM VISIT NOTE ---
History Report prepared by Rashida: Laila Trujillo Under the Supervision of: Dr. Chapito Lara D.O. First contact with patient: 17:49 Chief Complaint: CHEST PAIN Stated Complaint: LEFT ARM AND HEART PAIN- CARDIAC HX Nursing Triage Summary: Patient complains of fluttering in the chest. History of Present Illness The patient is a 61 year old female who presents to the Emergency Room with complaints of intermittent chest pain starting yesterday. The pain is on the left side. She notices the pain when she goes to sit up. The pain occurs with movement and worsens with exertion. She reports fluttering in her chest, SOB, and left arm pain. She has had this before and follows with cardiology. She was diagnosed with bronchitis and sinus infection 5 days ago as an outpatient. She has had cough and rhinorrhea. She denies any abdominal pain, nausea, vomiting, jaw pain, or urinary symptoms. She normally has diarrhea. She wears 2 L of oxygen at night. She is not on any blood thinners. She has a history of PE, SVT , asthma, and diabetes. She denies any history of [place], hypertension, or heart disease. She quit smoking 38 years ago. Source of History: patient, family Onset: yesterday Position: chest (left) Quality: other (pain) Timing: intermittent Modifying Factors (Worsening): exertion, movement Associated Symptoms: + cough, + SOB, No nausea, No vomiting, No abdominal pain, No urinary symptoms Review of Systems See HPI for pertinent positives & negatives. A total of 10 systems reviewed and were otherwise negative. Past Medical & Surgical Medical Problems: (1) Asthma (2) Calculus Of Kidney (3) Cholecystectomy (4) Chronic obstructive lung disease (5) Diabetes mellitus (6) Hysterectomy (7) Left arm numbness (8) Rotator cuff arthropathy (9) Shortness of breath (10) Sleep apnea (11) SVT (supraventricular tachycardia) Family History Diabetes mellitus Hypertension Kidney stones Social History Smoking Status: Former Smoker Alcohol Use: none Drug Use: none Marital Status: Housing Status: lives with family Occupation Status: disabled Current/Historical Medications Scheduled Aspirin (Aspirin), 81 MG PO DAILY Atorvastatin (Lipitor), 10 MG PO HS Cholecalciferol (Vitamin D3), 2,000 INTER.UNIT PO QAM Cyanocobalamin (Vitamin B-12 1000 Mcg), 1,000 MCG PO QPM Diltiazem Hcl (Diltiazem Cd), 240 MG PO QAM Enalapril Maleate (Vasotec), 2.5 MG PO QPM Furosemide (Lasix), 40 MG PO BID Hydroxyzine HCl (Hydroxyzine HCl), 10 MG PO Q12 Insulin Glargine (Basaglar Kwikpen), 80 UNITS SC QAM Insulin Lispro (Human) (Humalog), 1 DOSE SC UD Liraglutide (Victoza), 1.8 MCG SQ QAM Metformin Hcl (Glucophage), 1,000 MG PO BIDM Mometasone Furoate-Formoterol (Dulera 200/5 Mcg), 2 PUFFS INH BID Montelukast Sod (Montelukast Sodium), 10 MG PO HS Potassium Citrate (Alkalinizer (Potassium Citrate ER), 1,080 MG PO BID Ranitidine Hcl (Zantac), 300 MG PO BID Scheduled PRN Acetaminophen (Tylenol), 325 MG PO TID PRN for Headache or Pain Homeopathic Products (Leg Cramp Relief), 3 TABS PO TID PRN for Leg Cramps Tramadol (Ultram), 50 MG PO Q12 PRN for Pain Allergies Coded Allergies: Tetanus Toxoid (Verified Allergy, Unknown, ARM SWELLING ITCHY, 10/26/16) Physical Exam Vital Signs Date Time Temp Pulse Resp B/P (MAP) Pulse Ox O2 Delivery O2 Flow Rate FiO2 03/10/17 20:18 95 24 140/87 95 Room Air 03/10/17 18:39 91 24 138/89 95 Room Air 03/10/17 18:04 Room Air 03/10/17 18:01 100 03/10/17 17:09 36.6 100 18 94 Room Air Physical Exam GENERAL: Sitting up in bed, chronically ill appearing, disheveled, no acute distress, nontoxic EYE EXAM: normal conjunctiva. OROPHARYNX: no exudate, no erythema, lips, buccal mucosa, and tongue normal and mucous membranes are moist NECK: supple, no nuchal rigidity, no adenopathy, non-tender CHEST: Reproducible anterior chest wall pain which is different than stated complaint LUNGS: Clear to auscultation. Normal chest wall mechanics HEART: no murmurs, S1 normal and S2 normal ABDOMEN: abdomen soft, non-tender, normo-active bowel sounds, no masses, no rebound or guarding. BACK: Back is symmetrical on inspection and there is no deformity, no midline tenderness, no CVA tenderness. SKIN: no rashes and no bruising UPPER EXTREMITIES: upper extremities are grossly normal. LOWER EXTREMITIES: No pitting edema. Calves equal bilaterally. NEURO EXAM: Normal sensorium, cranial nerves II-XII grossly intact, normal speech, no gross weakness of arms, no gross weakness of legs. Medical Decision & Procedures ER Provider Diagnostic Interpretation: Xray results as stated below per my and the radiologist's interpretation. Radiology results as stated below per my review and the radiologist's interpretation: CHEST ONE VIEW PORTABLE CLINICAL HISTORY: Atypical chest pain COMPARISON STUDY: 03/05/2017 FINDINGS: The cardiac and mediastinal contours remain stable. There is elevation of the right hemidiaphragm. There is no overt failure. There is no lobar consolidation. There is minor interstitial thickening similar to the prior study. There are no significant pleural effusions. There are postsurgical changes of a reverse right shoulder arthroplasty[ IMPRESSION: Elevation of the right hemidiaphragm. No evidence of acute parenchymal consolidation Electronically signed by: Abdulkadir Guerrero M.D. 03/10/2017 6:41 PM Dictated Date/Time: 03/10/2017 6:[address] ANGIOGRAM OF THE CHEST CLINICAL HISTORY: Atypical chest pain COMPARISON STUDY: Chest x-ray dated 03/10/2017, CT scan dated 02/29/2016 TECHNIQUE: Following the IV administration of 102 mL of [id number]-[id number], CT angiogram of the thorax was performed from the thoracic inlet to the lung bases utilizing the pulmonary embolus protocol. Images are reviewed in the axial, sagittal, and coronal planes. IV contrast was administered without complication. MIP imaging was performed. A dose lowering technique was utilized adhering to the principles of ALARA. CT DOSE: 900.84 mGy.cm FINDINGS: Prevascular and paratracheal lymph nodes are the upper limits of normal in size. There is no pathologic axillary or hilar lymphadenopathy. There was no evidence of thoracic aortic dilatation. There were no pulmonary artery filling defects to indicate acute pulmonary embolism. No pleural effusions are visualized. There is elevation the right hemidiaphragm. There is no lobar consolidation. There are right lower lobe compressive atelectatic changes. Two tiny right middle lobe pulmonary nodules, the largest of which measures 3 mm remain stable. IMPRESSION: 1. No evidence of acute pulmonary embolism 2. Elevation of the right hemidiaphragm with right lower lobe atelectasis Electronically signed by: Abdulkadir Guerrero M.D. 03/10/2017 7:45 PM Dictated Date/Time: 03/10/2017 7:40 PM Laboratory Results 03/10/17 18:21 Red Blood Count 4.90, Mean Corpuscular Volume 80.8, Mean Corpuscular Hemoglobin 25.7, Mean Corpuscular Hemoglobin Concent 31.8, Mean Platelet Volume 9.7, Neutrophils (%) (Auto) 67.5, Lymphocytes (%) (Auto) 24.6, Monocytes (%) (Auto) 6.0, Eosinophils (%) (Auto) 1.0, Basophils (%) (Auto) 0.6, Neutrophils # (Auto) 8.22, Lymphocytes # (Auto) 3.00, Monocytes # (Auto) 0.73, Eosinophils # (Auto) 0.12, Basophils # (Auto) 0.07 03/10/17 18:21 Test 03/10/17 18:20 03/10/17 18:21 Influenza Type A Antigen Neg for Influ A (NEG) Influenza Type B Antigen Neg for Influ B (NEG) White Blood Count 12.18 K/uL (4.8-10.8) Red Blood Count 4.90 M/uL (4.2-5.4) Hemoglobin 12.6 g/dL (12.0-16.0) Hematocrit 39.6 % (37-47) Mean Corpuscular Volume 80.8 fL (80-100) Mean Corpuscular Hemoglobin 25.7 pg (25-34) Mean Corpuscular Hemoglobin Concent 31.8 g/dl (32-36) Platelet Count 265 K/uL (130-400) Mean Platelet Volume 9.7 fL (7.4-10.4) Neutrophils (%) (Auto) 67.5 % Lymphocytes (%) (Auto) 24.6 % Monocytes (%) (Auto) 6.0 % Eosinophils (%) (Auto) 1.0 % Basophils (%) (Auto) 0.6 % Neutrophils # (Auto) 8.22 K/uL (1.4-6.5) Lymphocytes # (Auto) 3.00 K/uL (1.2-3.4) Monocytes # (Auto) 0.73 K/uL (0.11-0.59) Eosinophils # (Auto) 0.12 K/uL (0-0.5) Basophils # (Auto) 0.07 K/uL (0-0.2) RDW Standard Deviation 47.0 fL (36.4-46.3) RDW Coefficient of Variation 16.1 % (11.5-14.5) Immature Granulocyte % (Auto) 0.3 % Immature Granulocyte # (Auto) 0.04 K/uL (0.00-0.02) Prothrombin Time 10.0 SECONDS (9.0-12.0) Prothromb Time International Ratio 1.0 (0.9-1.1) Anion Gap 10.0 mmol/L (3-11) Estimated GFR () 113.8 Estimated GFR (Non- 98.2 BUN/Creatinine Ratio 10.5 (10-20) Calcium Level 9.7 mg/dl (8.5-10.1) Troponin I < 0.015 ng/ml (0-0.045) Laboratory results per my review. Medications Administered Medications (Trade) Dose Ordered Sig/Neida Route Start Time Stop Time Status Last Admin Dose Admin Aspirin (Aspirin Chew) 324 mg NOW STAT PO 03/10/17 18:09 03/10/17 18:11 DC 03/10/17 18:38 324 MG ECG Indication: chest pain Rate (beats per minute): 89 Rhythm: sinus rhythm Findings: RBBB, T-wave inversion (Septal), left axis deviation Comparison ECG Date: 27-Oct-2016 Change: no significant change Change: Patient's electrocardiogram interpreted by me. ED Course ED COURSE: Vital signs were reviewed and showed normal vitals. The patients medical record was reviewed The above diagnostic studies were performed and reviewed. ED treatments and interventions as stated above. 1756: The patient was evaluated in room A11A. A complete history and physical examination was performed. 1808: Aspirin 324 mg PO. 2010: Upon reevaluation, the patient is chest pain free. I discussed my findings with the patient and she understands and agrees with the treatment plan. Based on the patients age, coexisting illnesses, exam and lab findings the decision to treat as an inpatient was made. The patient remained stable while under my care. The patient will be evaluated for further management. 2018: I reviewed the patient's case with ALEJANDRO Fabian hospitalist. He will evaluate the patient for further management. Medical Decision Differential diagnoses includes but is not limited to acute coronary syndrome, myocardial infarction, pericarditis, pulmonary embolus, aortic dissection, pneumonia, pneumothorax, musculoskeletal, shingles, esophageal. Patient is a 61-year-old female with a past medical history of hyperlipidemia, smoker and obesity that presents to the ER with exertional chest pain, shortness of breath and left arm pain. She also admits to upper respiratory symptoms. On exam she is reproducible chest pain which is different than her stated complaint. CBC shows a mild leukocytosis. BMP all his troponin was unremarkable. Influenza A and B were negative. Patient has a past medical history of PEs. CTA of the chest was negative. EKG was nondiagnostic. Patient family were updated bedside and patient was admitted to internal medicine for further workup. Aspirin was given. Medication Reconcilliation Current Medication List: was personally reviewed by me Blood Pressure Screening Patient's blood pressure: Normal blood pressure Blood pressure disposition: Did not require urgent referral Consults Time Called: 2012 Consulting Physician: ALEJANDRO Fabian hospitalist Returned Call: 2017 I reviewed the patient's case with him. He will evaluate the patient for further management. Impression Primary Impression: Precordial chest pain Scribe Attestation The scribe's documentation has been prepared under my direction and personally reviewed by me in its entirety. I confirm that the note above accurately reflects all work, treatment, procedures, and medical decision making performed by me. Departure Information Dispostion Being Evaluated By Hospitalist Referrals RV. Patterson MD (PCP) Patient Instructions My [facility]
[2017-03-10] MEDS: POTASSIUM CITRATE 10 MEQ TAB PO SCH (22:58)
[2017-03-10] MEDS: hydrOXYzine HCL 10 MG TAB PO SCH (23:00)
[2017-03-10] MEDS: RANITIDINE HCL 150 MG TAB PO SCH (23:01)
[2017-03-10] MEDS: INSULIN ASPART 100 UNITS/ML 3 ML PEN SC SCH (23:04)
[2017-03-10] MEDS: HEPARIN SOD 5000 UNIT/0.5 ML CARP SQ SCH (23:05)
[2017-03-10 23:33] VITALS: BP 162/83; PULSE 91; TEMP 36.8; O2SAT 93
[2017-03-11] VITALS (7 sets, daily range): BP systolic 137–162; BP diastolic 78–91; PULSE 84–97; TEMP 36.6–37; O2SAT 92–98
[2017-03-11] MEDS ORDERED: IV FLUIDS COMPLETED PRN (02:30)
[2017-03-11] MEDS: INSULIN ASPART 100 UNITS/ML 3 ML PEN SC SCH ×2 (07:00→11:46)
[2017-03-11] MEDS: POTASSIUM CITRATE 10 MEQ TAB PO SCH (08:04)
[2017-03-11] MEDS: RANITIDINE HCL 150 MG TAB PO SCH (08:04)
[2017-03-11] MEDS: hydrOXYzine HCL 10 MG TAB PO SCH (08:04)
[2017-03-11] MEDS: HEPARIN SOD 5000 UNIT/0.5 ML CARP SQ SCH ×2 (08:08→14:00)
[2017-03-11] MEDS ORDERED: ASPIRIN 81 MG ECTAB PO SCH (09:00)
[2017-03-11] MEDS ORDERED: FUROSEMIDE 40 MG TAB PO SCH (09:00)
[2017-03-11] MEDS ORDERED: DILTIAZEM HCL 240 MG CAPCR PO SCH (09:00)
[2017-03-11] MEDS ORDERED: INSULIN GLARGINE SC SCH (09:00)
--- NOTE | 2017-03-11 14:31 | Cardiology Consultation ---
Cardiology Consultation Date of Consultation: Mar 11, 2017. Requesting Physician: Dr. Zeng Reason for Consultation: Chest Pain History of Present Illness Ms. Boyce is a pleasant 61-year-old woman with a history of insulin-dependent type 2 diabetes, hypertension, dyslipidemia, GERD and prior SVT who was admitted overnight in the setting of new left-sided chest pain. Patient is followed by Dr. Broussard for cardiovascular care. She has had longstanding palpitations and was diagnosed with SVT, likely atrial tachycardia back in February of 2016. Echocardiogram at that time showed preserved LV function with no significant valvular pathology. Holter monitor after hospitalization showed 1 brief episode of of SVT. Since that time she has been managed on diltiazem with minimal symptoms. Yesterday developed left-sided chest pain radiating to her arm. Pain was sharp of exacerbated with movement particularly movement of her left arm. Denies any preceding trauma. Denies any associated shortness of breath, nausea or presyncope. Did experience some fluttering associated with discomfort but different than what she has experienced in the past. On arrival here she was chest pain-free. Her initial EKG showed chronic right bundle-branch block. Troponins trended overnight have all been negative. Telemetry has showed sinus rhythm with intermittent sinus tachycardia but no clear SVT or other new arrhythmias. Family History Diabetes mellitus Hypertension Kidney stones No history of premature coronary disease or sudden cardiac Social History Smoking Status: Former Smoker History of Alcohol Use: Yes (occasionally) Review of Systems Cardiac: + palpitations 10 point review of systems was completed and was otherwise negative unless stated in HPI Allergies Coded Allergies: Tetanus Toxoid (Verified Allergy, Unknown, ARM SWELLING ITCHY, 10/26/16) Medications Current Inpatient Medications Medications (Trade) Dose Ordered Sig/Neida Route Start Time Stop Time Status Last Admin Dose Admin Ioversol (Optiray 320) 111 ml UD PRN IV 03/10/17 19:30 03/14/17 19:29 Aspirin (Ecotrin Tab) 81 mg DAILY PO 03/11/17 09:00 04/10/17 08:59 03/11/17 08:05 81 MG Atorvastatin Calcium (Lipitor Tab) 10 mg HS PO 03/10/17 21:00 04/09/17 20:59 03/10/17 22:59 10 MG Cyanocobalamin (Vitamin B-12 Tab) 1,000 mcg QPM PO 03/10/17 21:00 04/09/17 20:59 03/10/17 23:01 1,000 MCG Diltiazem HCl (Cardizem Cd Cap) 240 mg QAM PO 03/11/17 09:00 04/10/17 08:59 03/11/17 08:05 240 MG Enalapril Maleate (Vasotec Tab) 2.5 mg QPM PO 03/10/17 21:00 04/09/17 20:59 03/10/17 23:00 2.5 MG Furosemide (Lasix Tab) 40 mg BID17 PO 03/11/17 09:00 04/10/17 08:59 03/11/17 08:05 40 MG Hydroxyzine HCl (Vistaril Tab) 10 mg Q12 PO 03/10/17 21:00 04/09/17 20:59 03/11/17 08:04 10 MG Insulin Glargine (Lantus Vial) 80 units QAM SC 03/11/17 09:00 04/10/17 08:59 03/11/17 08:08 80 UNITS Montelukast Sodium (Singulair Tab) 10 mg HS PO 03/10/17 21:00 04/09/17 20:59 03/10/17 23:00 10 MG Potassium Citrate (Urocit-K Tab) 10 meq BID PO 03/10/17 21:00 04/09/17 20:59 03/11/17 08:04 10 MEQ Tramadol HCl (Ultram Tab) 50 mg Q12 PRN PO 03/10/17 20:30 04/09/17 20:29 Ranitidine HCl (zANTac TAB) 300 mg BID PO 03/10/17 21:00 04/09/17 20:59 03/11/17 08:04 300 MG Heparin Sodium (Porcine) (Heparin Sq 5000 Unit/0.5ml) 5,000 unit Q8 SQ 03/10/17 22:00 04/09/17 21:59 03/11/17 08:08 5,000 UNIT Acetaminophen (Tylenol Tab) 650 mg Q4H PRN PO 03/10/17 20:30 04/09/17 20:29 Al Hydrox/Mg Hydrox/Simethicone (Maalox Max Susp) 15 ml Q4H PRN PO 03/10/17 20:30 04/09/17 20:29 Magnesium Hydroxide (Milk Of Magnesia Susp) 30 ml Q12H PRN PO 03/10/17 20:30 04/09/17 20:29 Zolpidem Tartrate (Ambien Tab) 5 mg HSZ PRN PO 03/10/17 20:30 04/09/17 20:29 Ondansetron HCl (Zofran Inj) 4 mg Q6H PRN IV 03/10/17 20:30 04/09/17 20:29 Nitroglycerin (Nitrostat Tab) 0.4 mg UD PRN SL 03/10/17 20:30 04/09/17 20:29 Morphine Sulfate (MoRPHine SULFATE INJ) 2 mg Q30M PRN IV 03/10/17 20:30 03/24/17 20:29 Polyethylene (Miralax Powder Packet) 17 gm DAILY PRN PO 03/10/17 20:30 04/09/17 20:29 Insulin Aspart (novoLOG ASPART) SLIDING SCALE G... ACHS SC 03/10/17 21:00 04/09/17 20:59 03/11/17 11:46 2 UNITS Glucose (Glucose 40% Gel) 15-30 GRAMS 15 GRAMS... UD PRN PO 03/10/17 21:45 04/09/17 21:44 Glucose (Glucose Chew Tab) 4-8 Tablets 4 Tabl... UD PRN PO 03/10/17 21:45 04/09/17 21:44 Dextrose (Dextrose 50% 50ML Syringe) 25-50ML OF 50% DW IV FOR... UD PRN IV 03/10/17 21:45 04/09/17 21:44 Glucagon (Glucagon Inj) 1 mg UD PRN SQ 03/10/17 21:45 04/09/17 21:44 Miscellaneous Information (Order Awaiting Action) 1 ea QS N/A 03/11/17 00:00 04/10/17 00:00 Miscellaneous (Iv Fluids Completed) 1 ea PRN PRN N/A 03/11/17 02:30 03/11/18 02:29 Physical Exam Vital Signs Past 12 Hours Date Time Temp Pulse Resp B/P (MAP) Pulse Ox O2 Delivery O2 Flow Rate FiO2 1/30/18 12:00 92 Room Air 03/11/17 11:50 37.0 89 22 143/88 (106) 95 Room Air 03/11/17 08:00 92 Room Air 03/11/17 07:50 36.6 97 24 155/91 (112) 92 Room Air 03/11/17 04:00 Room Air 03/11/17 03:55 36.7 97 18 161/78 (105) 93 162/80 (107) General: Comfortable, no acute distress, morbidly obese Eyes: Sclerae anicteric, extraocular movements intact HENT: Oropharynx clear mucous membranes moist Neck: Normal carotid upstrokes, no bruits. No JVD. Lungs: Clear to auscultation bilaterally, no rhonchi or wheezes Cardiac: Regular rate and rhythm, no murmurs, rubs or gallops. Exquisitely tender to palpation on left chest wall, reproduction of home chest pain with palpation Vascular: 2+ radial, DP and PT pulses. Abdomen: Soft, nontender, nondistended, positive bowel sounds. Extremities: Well perfused, no peripheral edema Skin: No rashes or lesions. Neuro: Nonfocal Psych: Alert orient x3, normal affect and mood Data Laboratory Results: Last 24 Hours Test 03/10/17 18:20 03/10/17 18:21 03/10/17 21:24 03/10/17 22:45 Influenza Type A Antigen Neg for Influ A Influenza Type B Antigen Neg for Influ B White Blood Count 12.18 K/uL Red Blood Count 4.90 M/uL Hemoglobin 12.6 g/dL Hematocrit 39.6 % Mean Corpuscular Volume 80.8 fL Mean Corpuscular Hemoglobin 25.7 pg Mean Corpuscular Hemoglobin Concent 31.8 g/dl Platelet Count 265 K/uL Mean Platelet Volume 9.7 fL Neutrophils (%) (Auto) 67.5 % Lymphocytes (%) (Auto) 24.6 % Monocytes (%) (Auto) 6.0 % Eosinophils (%) (Auto) 1.0 % Basophils (%) (Auto) 0.6 % Neutrophils # (Auto) 8.22 K/uL Lymphocytes # (Auto) 3.00 K/uL Monocytes # (Auto) 0.73 K/uL Eosinophils # (Auto) 0.12 K/uL Basophils # (Auto) 0.07 K/uL RDW Standard Deviation 47.0 fL RDW Coefficient of Variation 16.1 % Immature Granulocyte % (Auto) 0.3 % Immature Granulocyte # (Auto) 0.04 K/uL Prothrombin Time 10.0 SECONDS Prothromb Time International Ratio 1.0 Sodium Level 135 mmol/L Potassium Level 3.6 mmol/L Chloride Level 99 mmol/L Carbon Dioxide Level 27 mmol/L Anion Gap 10.0 mmol/L Blood Urea Nitrogen 7 mg/dl Creatinine 0.63 mg/dl Estimated GFR () 113.8 Estimated GFR (Non- 98.2 BUN/Creatinine Ratio 10.5 Random Glucose 124 mg/dl Calcium Level 9.7 mg/dl Troponin I < 0.015 ng/ml < 0.015 ng/ml Bedside Glucose 185 mg/dl Test 03/11/17 04:57 03/11/17 06:35 03/11/17 10:59 Troponin I < 0.015 ng/ml Bedside Glucose 145 mg/dl 209 mg/dl Imaging: Chest x-ray showed no acute cardiopulmonary process. CTA of chest was negative for PE Dobutamine stress echo (08/2015): Negative DSE at 94 percent MPHR. EKG: Sinus rhythm with right bundle-branch block Telemetry reviewed: Sinus rhythm with occasional sinus tachycardia to the 120s. No other significant arrhythmias. Assessment & Plan 1. Noncardiac chest pain 2. History of SVT 3. Hypertension 4. Dyslipidemia 5. Morbid obesity with obstructive sleep apnea Mrs. Boyce is here with new left-sided chest pain radiating to her arm. Chest pain is reproducible with palpation to her left chest wall and appears most likely musculoskeletal. EKG and cardiac enzymes have been negative for any signs of ischemia. Suspicion for ACS at this point is very low. No evidence of her current arrhythmia on telemetry. As such feel the patient can be safely discharged home today without additional cardiac testing. Would continue her on her home cardiac regimen without changes. She has scheduled follow-up with Dr. Broussard in 2 weeks. Thank you for consultation. Please contact with any questions.
--- NOTE | 2017-03-11 15:50 | Discharge Instructions ---
Discharge Instructions Date of Service Mar 11, 2017. Admission Reason for Admission: Chest Pain Discharge Discharge Diagnosis / Problem: Non cardiac chest pain Discharge Goals Goal(s): Decrease discomfort, Improve function Activity Recommendations Activity Limitations: resume your previous activity . Instructions / Follow-Up Instructions / Follow-Up Follow up with PCP in 1-2 weeks Hold metformin for 3 days. Current Hospital Diet Patient's current hospital diet: AHA Diet (Heart Healthy), Diabetes Type 2 Diet Discharge Diet Recommended Diet: AHA Diet (Heart Healthy), Diabetes Type 2 Diet Pending Studies Studies pending at discharge: no Medical Emergencies . Who to Call and When: Medical Emergencies: If at any time you feel your situation is an emergency, please call 911 immediately. . Non-Emergent Contact Non-Emergency issues call your: Primary Care Provider Call Non-Emergent contact if: you have any medication questions . . "Provider Documentation" section prepared by Roverto Zeng. . VTE Core Measure Inpt VTE Proph given/why not?: Unfractionated heparin SQ
--- NOTE | 2017-03-11 15:51 | Discharge Summary ---
Discharge Summary Date of Service Mar 11, 2017. Discharge Summary Admission Date: Mar 10, 2017 at 20:30 Discharge Date: Mar 11, 2017 Discharge Disposition: Home Principal Diagnosis: Noncardiac Chest pain Problems/Secondary Diagnoses: Asthma Immunizations: Have You Had Influenza Vaccine: Yes Influenza Vaccine Date: Nov 26, 2014 History of Tetanus Vaccine?: No History of Pneumococcal: Yes Pneumococcal Date: Mar 29, 2013 History of Hepatitis B Vaccine: No Consultations: Cardiology 1. Noncardiac chest pain 2. History of SVT 3. Hypertension 4. Dyslipidemia 5. Morbid obesity with obstructive sleep apnea Mrs. Boyce is here with new left-sided chest pain radiating to her arm. Chest pain is reproducible with palpation to her left chest wall and appears most likely musculoskeletal. EKG and cardiac enzymes have been negative for any signs of ischemia. Suspicion for ACS at this point is very low. No evidence of her current arrhythmia on telemetry. As such feel the patient can be safely discharged home today without additional cardiac testing. Would continue her on her home cardiac regimen without changes. She has scheduled follow-up with Dr. Broussard in 2 weeks. Medication Reconciliation Continued Medications: Acetaminophen (Tylenol) 325 Mg Tab 325 MG PO TID PRN for Headache or Pain Aspirin (Aspirin) 81 Mg Tab 81 MG PO DAILY Atorvastatin (Lipitor) 10 Mg Tab 10 MG PO HS Cholecalciferol (Vitamin D3) 2,000 Unit Cap 2000 INTER.UNIT PO QAM TAKE THIS MEDICATION ONCE DAILY WITH LARGEST MEAL OF THE DAY Cyanocobalamin (Vitamin B-12 1000 Mcg) 1,000 Mcg Tab 1000 MCG PO QPM Diltiazem Hcl (Diltiazem Cd) 240 Mg Capcr 240 MG PO QAM Enalapril Maleate (Vasotec) 2.5 Mg Tab 2.5 MG PO QPM Furosemide (Lasix) 40 Mg Tab 40 MG PO BID Homeopathic Products (Leg Cramp Relief) 1 Tab Tab 3 TABS PO TID PRN for Leg Cramps Hydroxyzine HCl (Hydroxyzine HCl) 10 Mg Tab 10 MG PO Q12 Insulin Glargine (Basaglar Kwikpen) 100 Unit/Ml Inj 80 UNITS SC QAM Insulin Lispro (Human) (Humalog) 100 Unit/Ml Inj 1 DOSE SC UD 60 UNITS DAILY PLUS SLIDING SCALE WITH MEALS Liraglutide (Victoza) 18 Mg/3 Ml Inj 1.8 MCG SQ QAM Metformin Hcl (Glucophage) 1,000 Mg Tab 1000 MG PO BIDM, TAB Mometasone Furoate-Formoterol (Dulera 200/5 Mcg) 1 Aer Aer 2 PUFFS INH BID, GM RINSE MOUTH AFTER USE Montelukast Sod (Montelukast Sodium) 10 Mg Tab 10 MG PO HS Potassium Citrate (Alkalinizer (Potassium Citrate ER) 1,080 Mg Tab 1080 MG PO BID, TAB Ranitidine Hcl (Zantac) 300 Mg Tab 300 MG PO BID Tramadol (Ultram) 50 Mg Tab 50 MG PO Q12 PRN for Pain, TAB Discharge Exam Review of Systems Constitutional: No fever, No chills, No sweats Eyes: No worsening of vision ENT: No hearing loss, No unusual epistaxis, No nasal symptoms Respiratory: + shortness of breath, No cough, No sputum, No wheezing Cardiovascular: + chest pain, No orthopnea, No PND Abdomen: No pain, No nausea, No vomiting Musculoskeletal: No joint pain Genitourinary - Female: No dysuria, No urinary frequency, No urinary urgency Neurologic: No memory loss, No paralysis, No weakness Psychiatric: No depression symptoms Endocrine: No fatigue Hematologic / Lymphatic: No abnormal bleeding/bruising Integumentary: No rash Allergic / Immunologic: No environmental allergies General Appearance: WD/WN, no apparent distress, + obese Head: normocephalic ENT: normal ENT inspection, pharynx normal Neck: supple Respiratory/Chest: chest non-tender, lungs clear Cardiovascular: regular rate, rhythm, no edema, no gallop Abdomen/GI: normal bowel sounds, non tender, soft Back: normal inspection Extremities/Musculoskelatal: normal inspection 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: cognos consultant II-XII nml as tested, no motor/sensory deficits, alert, oriented x 3 Skin: normal color Hospital Course 61 y/o F, DM II, HPL, obesity, GERD, SVTs - diagnosed 10/27. Presenting with L sided CP - radiating into L arm and accompanied by mild SOB. She could not definitely confirm associated palpitations. She notes that the pain worsens or is triggered by activity. Denies N/V, lightheadedness or diaphoresis. Pain has resolved spontaneously at time of admission. 1) CP Monitored on tele Tropponin x3 was negative - no arrhythmias have been noted thus far and she has not yet had an episode of CP since arrival. Chest pain was deemed noncardiac Patient was discharged 2) DM - placed on SS with daily Glargine. will continue home meds at discharge 3) SVTs - will remain on Diltiazem 4) HPL - cont Atorvastatin 5) Asthma - cont prescribed inhalers 6) SHELBY - has brought own CPAP machine which was employed Total Time Spent: Greater than 30 minutes This includes examination of the patient, discharge planning, medication reconciliation, and communication with other providers. Discharge Instructions Please refer to the electronic Patient Visit Report (Discharge Instructions) for additional information. Follow-Up As per discharge note Additional Copies To RV. Patterson MD
== END 2017-03-11 16:19 | disposition home or self-care (01) ==
LOC: C.EDB 16:27 → C.2E 20:30 → ENRESERV 20:52
PROVIDERS: ADMIT Internal Medicine; ATTEND Internal Medicine
DX: R07.89 Other chest pain (principal); E11.9 Type 2 diabetes mellitus without complications; I10 Essential (primary) hypertension; K21.9 Gastro-esophageal reflux disease without esophagitis; E78.5 Hyperlipidemia, unspecified; I45.10 Unspecified right bundle-branch block; E66.01 Morbid (severe) obesity due to excess calories; G47.33 Obstructive sleep apnea (adult) (pediatric); I47.1 Supraventricular tachycardia; J45.909 Unspecified asthma, uncomplicated; J44.9 Chronic obstructive pulmonary disease, unspecified; F12.10 Cannabis abuse, uncomplicated; Z87.442 Personal history of urinary calculi; Z90.49 Acquired absence of other specified parts of digestive tract; Z87.891 Personal history of nicotine dependence; Z99.81 Dependence on supplemental oxygen; Z68.43 Body mass index [BMI] 50.0-59.9, adult; Z79.82 Long term (current) use of aspirin; Z79.4 Long term (current) use of insulin; Z82.49 Family history of ischemic heart disease and other diseases of the circulatory system; Z83.3 Family history of diabetes mellitus; Z84.1 Family history of disorders of kidney and ureter

== ENCOUNTER → 2017-03-25 | Outpatient (CLI) | payer OTHER | END | disposition home or self-care (01) | LOC: C.LAB1850 10:42 | PROVIDERS: ATTEND Nurse Practitioner Adult Health | DX: E11.319 Type 2 diabetes mellitus with unspecified diabetic retinopathy without macular edema (principal) ==

== ENCOUNTER 2017-09-18 11:53 | Emergency (ER) | payer OTHER ==
[~2017-09-18 11:53] MED LIST changes: +CETI10TA84 PO; +FERR1TAB62 PO; +LEVA45AE INH; +LIDO1PAD2 TD; +LIDO4LIQ; +MELA3TAB7 PO; +MELO7.5T5 PO; +NYSTCRE11 TD
[2017-09-18 12:01] VITALS: TEMP 36.7; Ht 160 cm
--- NOTE | 2017-09-18 13:04 | DIAGNOSTIC IMAGING REPORT ---
L FOREARM 2 VIEWS ROUTINE, L WRIST MIN 3 VIEWS ROUTINE, L HAND MIN 3 VIEWS ROUTINE CLINICAL HISTORY: Left arm, wrist, and hand pain. Fall. COMPARISON STUDY: None. FINDINGS: No fracture or dislocation. 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 Soft tissues are unremarkable. No elbow effusion. IMPRESSION: No fracture or dislocation within the left forearm, left wrist, or left hand. Electronically signed by: Ace Tinajero M.D. 09/18/2017 1:03 PM Dictated Date/Time: 09/18/2017 12:56 PM
[2017-09-18 13:33] VITALS: BP 135/59; PULSE 82; O2SAT 92
--- NOTE | 2017-09-19 06:49 | EMERGENCY ROOM VISIT NOTE ---
"ED Visit Note First contact with patient: 12:10 Chief Complaint: Left hand pain. History of Present Illness: Ms. Boyce is a 62-year-old white female who is brought via wheelchair into the ED complaining of left hand pain, left wrist pain and left forearm pain. Patient reports approximately 2-3 hours ago she was turning around in the bathroom. Reports that she tripped over her feet and fell into the wall. She also reports that she accidentally struck her daughter in the mouth with her left hand. Since that time she has been having pain in the area of the fourth and fifth metacarpals, the distal radius and ulna. She describes this as a sharp and throbbing sensation. She rates her discomfort 8.5/10. She denies true radiation of pain but does report she has a shooting discomfort up through her forearm to the level of the elbow. Her pain worsens with palpation, making a fist, all movements of the wrist and forearm. She has not identified any alleviating factors related to the pain. She has not taken any medication for pain prior to arrival at the hospital. Associated with her pain she reports she has a tingling sensation over the thumb, index and middle finger and a numbness sensation in the ring and little fingers. She denied striking her head or having loss of consciousness at the time of her fall and since her fall she denies all signs of head injury. Review of Systems: As noted above in history of present illness. Past Medical History: (1) Asthma (2) Calculus Of Kidney (3) Cholecystectomy (4) Chronic obstructive lung disease (5) Diabetes mellitus (6) Hysterectomy (7) Left arm numbness (8) Rotator cuff arthropathy (9) Shortness of breath (10) Sleep apnea (11) SVT (supraventricular tachycardia) Surgical Problems: (1) History of total knee arthroplasty (2) History of total replacement of right shoulder joint Current Medications: Medications Dose Route/Sig Max Daily Dose Days Date Category Dose Instructions Lidocaine 5 % Pad 1 Patch TD DAILY 09/03/17 Rx Ultram (Tramadol HCl) 50 Mg Tab 1 Tab PO TID PRN 09/03/17 Rx Levalbuterol Tartrate Hfa (Levalbuterol Tartrate) 45 Mcg/Act Aer 1 Puff INH Q4H PRN 09/03/17 Reported Mobic (Meloxicam) 7.5 Mg Tab 15 Mg PO DAILY PRN 09/03/17 Reported Melatonin (Melatonin-Pyridoxine) 1 Tab Tab 5 Mg PO HS 09/03/17 Reported Ferrous Sulfate 325 Mg Tab 325 Mg PO DAILY 09/03/17 Reported Mycogen || (Nystatin/Triamcinolone Acetonide) Cr 1 Appln TD BID PRN 09/03/17 Reported Lipitor (Atorvastatin Calcium) 10 Mg Tab 10 Mg PO HS 09/03/17 Reported Zyrtec (Cetirizine HCl) 10 Mg Tab 10 Mg PO DAILY 08/25/17 Reported Aspercreme Lidocaine (Lidocaine HCl) 4 % Liq 08/25/17 Reported Basaglar Kwikpen (Insulin Glargine) 100 Unit/Ml Inj 80 Units SC QAM 01/24/17 Reported Aspirin 81 Mg Tab 81 Mg PO DAILY 08/24/16 Reported Montelukast Sodium (Montelukast Sod) 10 Mg Tab 10 Mg PO HS 08/24/16 Reported Hydroxyzine HCl 10 Mg Tab 10 Mg PO Q12 08/24/16 Reported Zantac (Ranitidine Hcl) 300 Mg Tab 300 Mg PO BID 08/24/16 Reported Vasotec (Enalapril Maleate) 2.5 Mg Tab 2.5 Mg PO QPM 08/24/16 Reported Vitamin B-12 1000 Mcg (Cyanocobalamin) 1,000 Mcg Tab 1,000 Mcg PO QPM 08/24/16 Reported Vitamin D3 (Cholecalciferol) 2,000 Unit Cap 2,000 Inter.unit PO QAM 08/24/16 Reported TAKE THIS MEDICATION ONCE DAILY WITH LARGEST MEAL OF THE DAY Diltiazem Cd (Diltiazem Hcl) 240 Mg Capcr 240 Mg PO QAM 07/27/16 Reported Leg Cramp Relief (Homeopathic Products) 1 Tab Tab 3 Tabs PO TID PRN 07/11/16 Reported Humalog (Insulin Lispro (Human)) 100 Unit/Ml Inj 1 Dose SC UD 03/25/16 Reported 60 UNITS DAILY PLUS SLIDING SCALE WITH MEALS Dulera 200/5 Mcg (Mometasone Furoate-Formoterol) 1 Aer Aer 2 Puffs INH BID 12/23/15 Reported RINSE MOUTH AFTER USE Victoza (Liraglutide) 18 Mg/3 Ml Inj 1.8 Mcg SQ QAM 07/31/15 Reported Tylenol (Acetaminophen) 325 Mg Tab 650 Mg PO Q8 PRN 02/26/15 Reported Potassium Citrate ER (Potassium Citrate (Alkalinizer) 1,080 Mg Tab 1,080 Mg PO BID 09/29/14 Reported Glucophage (Metformin Hcl) 1,000 Mg Tab 1,000 Mg PO BIDM 09/29/14 Reported Lasix (Furosemide) 40 Mg Tab 40 Mg PO BID 06/06/12 Reported Allergies to Medications: Tetanus toxoid. Social History: Patient is not currently employed; she feels safe in her home environment; she denies tobacco use. Physical Examination: Vital Signs: Date Time Temp Pulse Resp B/P (MAP) Pulse Ox O2 Delivery O2 Flow Rate FiO2 09/18/17 13:33 82 16 135/59 92 09/18/17 12:01 36.7 89 20 131/66 95 Room Air GENERAL: 62-year-old female in mild distress due to pain, nontoxic-appearing, afebrile and hemodynamically stable. NEUROLOGICAL: Awake, alert and oriented to person, place and time. Answering questions appropriately and following commands. SKIN: Warm, dry and pink. No soft tissue trauma noted. LEFT UPPER EXTREMITY: No gross bony deformity. No tenderness throughout the shoulder, forearm and elbow. Mild tenderness throughout the proximal radius and ulna. Moderate tenderness over the distal radius and ulna without bony deformity, bony crepitus, swelling or ecchymosis. Moderate tenderness over the fourth and fifth metacarpals without bony deformity, bony crepitus, swelling or ecchymosis. No tenderness throughout the fingers. The fingers are warm and pink and capillary refill was brisk. She noted decreased sensation predominantly in the ring and little fingers. She had difficulty with range of motion in pronation and supination of forearm, all movements of the wrist and flexion and extension of the fourth and fifth MCP, PIP and DIP joints because of pain. ED Course: Patient is assessed as noted above. Patient's medication list was reviewed. Patient was offered pain medication and refused; she did accept an ice bag for pain and comfort. Left Forearm X-Rays: Were read by myself and the radiologist showing no acute fractures or dislocations. Radiologist does note mild to moderate osteoarthritic changes within the hand and wrist with prominence in the DIP joints. No soft tissue swelling was noted. Left Hand X-Rays: Were read by myself and the radiologist showing no acute fractures or dislocations. Radiologist does note the same arthritic changes as previously noted. Left Wrist X-Rays: Were read by this myself and the radiologist and shows no acute fractures or dislocations. Once again radiologist notes the same arthritic changes. Patient was placed in a wrist lacer splint. Patient was educated about today's findings and instructed on her treatment plan ; she verbalized understanding and agreement with this plan. Clinical Impression: Left upper extremity pain. Disposition: Patient discharged home in stable condition accompanied by her daughter; prior to departure she was reassessed and subjectively reported she was feeling slightly better and rated her discomfort 5/10. Plan: Comfort measures were discussed with the patient including rest, splint use, pain medication will use and ice. Patient was encouraged to continue her current medications. Patient was encouraged to follow-up with her PCP or process laboratory specialist if no better in 7-10 days. Patient was encouraged return the ED for worsening/uncontrolled pain, worsening numbness/tingling, uncontrolled swelling or any new/concerning symptoms."
== END 2017-09-18 13:33 | disposition home or self-care (01) ==
LOC: C.EDB 11:55 → C.EDD 13:33
DX: M79.602 Pain in left arm (principal); W01.0XXA Fall on same level from slipping, tripping and stumbling without subsequent striking against object, initial encounter; Y92.012 Bathroom of single-family (private) house as the place of occurrence of the external cause; J45.909 Unspecified asthma, uncomplicated; J44.9 Chronic obstructive pulmonary disease, unspecified; E11.9 Type 2 diabetes mellitus without complications; G47.30 Sleep apnea, unspecified; I47.1 Supraventricular tachycardia; Z79.82 Long term (current) use of aspirin; Z79.4 Long term (current) use of insulin; Z79.899 Other long term (current) drug therapy; Z88.7 Allergy status to serum and vaccine